=== PATIENT | female | born 1965 | race American Indian/Alaskan Native ===

== ENCOUNTER 2017-03-31 07:23 | Inpatient (IN) | payer MEDICARE ==
[2017-03-31] MEDS ORDERED: NITROSTAT SL PRN (07:48)
--- NOTE | 2017-03-31 07:48 | Emergency Department Report ---
ED General Adult HPI - General Chief complaint: Dyspnea/Respdistress Stated complaint: MARCE Time Seen by Provider: 03/31/17 07:47 Source: patient, EMS, old records reviewed Mode of arrival: Stretcher Limitations: Physical Limitation - History of Present Illness Initial comments: This is a 51-year-old female who is previously unknown to this provider. Patient has a past medical history of congestive heart failure, hypertension, end-stage renal disease, on dialysis Monday, Monday, Monday. She is on home oxygen as well. Presents to the ER with EMS for chest pain and shortness of breath. The chest pain is central in the bilateral anterior chest dennison. It does not radiate. Her shortness of breath is constant. It worsens with physical exertion. It decreases with rest. Patient reports that her dialysis facility is [facility]. She thinks her sex therapist is Dr. Paredes. Patient has no DVT or pulmonary embolus risk factors. She reports her symptoms typically improve with dialysis. -: Gradual, hour(s) Location: chest Radiation: non-radiation Quality: aching Consistency: constant Improves with: rest, other Worsens with: movement Associated Symptoms: chest pain, shortness of breath, weakness - Related Data Home Medications Medication Instructions Recorded Confirmed Last Taken Cinacalcet HCl [Sensipar] 120 mg PO DAILY 03/31/17 03/31/17 03/30/17 Allergies Allergy/AdvReac Type Severity Reaction Status Date / Time No Known Allergies Allergy Unverified 03/31/17 07:27 ED Review of Systems ROS: Stated complaint: MARCE Other details as noted in HPI Comment: Unobtainable due to pts medical conditions Constitutional: malaise Respiratory: shortness of breath Cardiovascular: chest pain Gastrointestinal: denies: vomiting Neurological: weakness Psychiatric: anxiety ED Past Medical Hx - Past Medical History Previous Medical History?: Yes Hx Hypertension: Yes Hx Congestive Heart Failure: Yes Hx Renal Disease: Yes (M,W,F) - Surgical History Past Surgical History?: Yes Additional Surgical History: hysterectomy. bowel obstruction - Social History Smoking Status: Current Every Day Smoker Substance Use Type: None - Medications Home Medications: Home Medications Medication Instructions Recorded Confirmed Last Taken Type Cinacalcet HCl [Sensipar] 120 mg PO DAILY 03/31/17 03/31/17 03/30/17 History ED Physical Exam - General Limitations: Physical Limitation General appearance: alert, in no apparent distress, in distress - Head Head exam: Present: atraumatic, normocephalic - Eye Eye exam: Present: normal appearance, EOMI. Absent: nystagmus - ENT ENT exam: Present: normal exam, normal orophraynx, mucous membranes moist - Neck Neck exam: Present: normal inspection, full ROM - Respiratory Respiratory exam: Present: respiratory distress, rales, rhonchi - Cardiovascular Cardiovascular Exam: Present: normal rhythm, tachycardia, normal heart sounds. Absent: systolic murmur, diastolic murmur, rubs, gallop - GI/Abdominal GI/Abdominal exam: Present: soft, normal bowel sounds. Absent: distended, tenderness, guarding, rebound, rigid, pulsatile mass - Extremities Exam Extremities exam: Present: normal inspection, full ROM, normal capillary refill , other (left upper extremity AV fistula, appropriate throat, no redness, pus or streaking). Absent: pedal edema, joint swelling, calf tenderness - Back Exam Back exam: Present: normal inspection, full ROM. Absent: paraspinal tenderness , vertebral tenderness - Neurological Exam Neurological exam: Present: alert, oriented X3, other (Extraocular movements intact. Tongue midline. No facial droop. Facial sensation intact to light touch in the V1, V2, V3 distribution bilaterally. 5 and 5 strength in 4 extremities.. Sensation is intact to light touch in 4 extremities.). Absent: motor sensory deficit - Psychiatric Psychiatric exam: Present: anxious - Skin Skin exam: Present: warm, dry, intact, normal color. Absent: rash ED Course Vital Signs 03/31/17 03/31/17 03/31/17 07:27 07:34 07:35 Temperature 97.4 F L Pulse Rate 100 H 96 H Respiratory 22 22 30 H Rate Blood Pressure 161/99 Blood Pressure [Right] O2 Sat by Pulse 100 100 Oximetry 03/31/17 03/31/17 03/31/17 07:45 08:01 08:15 Temperature Pulse Rate 100 H 104 H 101 H Respiratory 26 H 34 H 28 H Rate Blood Pressure 155/98 160/99 160/99 Blood Pressure [Right] O2 Sat by Pulse 100 100 94 Oximetry 03/31/17 03/31/17 03/31/17 08:31 08:32 08:45 Temperature Pulse Rate 102 H 105 H 105 H Respiratory 26 H 20 29 H Rate Blood Pressure 160/99 165/99 Blood Pressure 146/90 [Right] O2 Sat by Pulse 98 97 Oximetry 03/31/17 03/31/17 03/31/17 09:01 09:15 09:30 Temperature 97.8 F Pulse Rate 99 H 62 101 H Respiratory 28 H 24 Rate Blood Pressure 146/90 158/86 165/106 Blood Pressure [Right] O2 Sat by Pulse 98 Oximetry 03/31/17 03/31/17 03/31/17 09:45 10:00 10:15 Temperature Pulse Rate 100 H 96 H 102 H Respiratory Rate Blood Pressure 166/101 167/102 170/99 Blood Pressure [Right] O2 Sat by Pulse Oximetry - Reevaluation(s) Reevaluation #1: 03/31/17 08:19 Differential diagnosis, including but not limited to: Congestive heart failure, pulmonary edema, hyperkalemia, pneumonia, multifactorial respiratory failure Assessment and plan: 51-year-old female with chest pain, shortness of breath, crackles, rales, who is going to go on BiPAP therapy and nitroglycerin drip. Nephrology has been paged, currently awaiting callback. Basic metabolic panel is pending. No pulmonary embolus or DVT risk factors, low risk by well's criteria, clinically does not pneumonia, clinically favor congestive heart failure and flash pulmonary edema. Patient required Ativan to cooperate with BiPAP therapy. Case is presented to the Hospital physician, Dr. Sarah Branch; he graciously accept the patient to the medical service. 03/31/17 08:20 Reevaluation #2: 03/31/17 08:21 Aspirin is given by EMS prior to arrival Reevaluation #3: 03/31/17 08:28 As expected, laboratory studies demonstrate hyperkalemia. Case is presented to the sex therapist on-call, Dr. Chua, and he was presented with the patient's laboratory studies, physical exam findings and chest x-ray findings. He recommends that patient does not require any specific medical therapy for hyperkalemia, and indicates she will place orders for emergent dialysis. Reevaluation #4: 03/31/17 08:37 Elevated troponin is appreciated. This is most likely secondary to underlying renal insufficiency. ED Medical Decision Making - Lab Data Result diagrams: 03/31/17 08:01 03/31/17 07:57 Vital Signs 03/31/17 03/31/17 03/31/17 07:27 07:34 07:35 Temperature 97.4 F L Pulse Rate 100 H 96 H Respiratory 22 22 30 H Rate Blood Pressure 161/99 O2 Sat by Pulse 100 100 Oximetry 03/31/17 07:45 Temperature Pulse Rate 100 H Respiratory 26 H Rate Blood Pressure 155/98 O2 Sat by Pulse 100 Oximetry Labs 03/31/17 08:01 WBC 8.2 RBC 3.58 L Hgb 10.6 Hct 33.0 MCV 92 MCH 30 MCHC 32 RDW 15.9 H Plt Count 238 Lymph % (Auto) 14.3 [place] % (Auto) 9.2 H Eos % (Auto) 3.4 Baso % (Auto) 0.6 Lymph # 1.2 [place] # 0.8 Eos # 0.3 Baso # 0.1 Seg Neutrophils % 72.5 H Seg Neutrophils # 6.0 - EKG Data When compared to previous EKG there are: previous EKG unavailable 03/31/17 08:21 Normal sinus, 96 bpm, left axis deviation, left ventricular hypertrophy, T-wave inversions in the lateral leads, nonspecific interventricular conduction delay, abnormal EKG, not morphologically consistent with ST elevation myocardial infarction, left anterior fascicular block, there is no prior EKG for comparison. - Radiology Data Radiology results: image reviewed interpreted by me: X-ray of the chest demonstrates congestive heart failure, cardiomegaly, pulmonary vascular congestion and pulmonary edema, right lower lobe atelectasis versus infiltrate Critical Care Time: Yes Critical care time in (mins) excluding proc time.: 35 Critical care attestation.: If time is entered above; I have spent that time in minutes in the direct care of this critically ill patient, excluding procedure time. ED Disposition Clinical Impression: Pulmonary edema, ESRD (end stage renal disease) Disposition: [id number] OP ADMIT IP TO THIS HOSP Is pt being admited?: Yes Condition: Good
[2017-03-31] MEDS ORDERED: TRIDIL DRIP 50MG/250ML 50 MG/250 ML BOTTLE IV SCH (08:00)
[2017-03-31] MEDS ORDERED: TRIDIL DRIP 50MG/250ML 50 MG/250 ML BOTTLE ONE (08:07)
[2017-03-31 08:11] LABS: Basophils % (Auto) 0.6 % (0.0-1.8); Eosinophils % (Auto) 3.4 % (0.0-4.3); Hemoglobin 10.6 gm/dl (10.1-14.3); Mean Corpuscular HGB Conc 32 % (30-34); Mean Corpuscular Hemoglobin 30 pg (28-32); Mean Corpuscular Volume 92 fl (79-97); Platelet Count 238 K/mm3 (140-440); Red Blood Count 3.58 M/mm3 (3.65-5.03); Red Cell Distribution Width 15.9 % (13.2-15.2); White Blood Count 8.2 K/mm3 (4.5-11.0)
[2017-03-31] MEDS ORDERED: ATIVAN ONE (08:19)
[2017-03-31] MEDS ORDERED: ATIVAN IV ONE (08:22)
[2017-03-31 08:23] LABS: Chloride 93.5 mmol/L (98-107); Potassium 5.9 mmol/L (3.6-5.0)
[2017-03-31] MEDS ORDERED: KIONEX PO ONE (08:30)
--- NOTE | 2017-03-31 08:33 | History and Physical Report ---
History of Present Illness Date of examination: 03/31/17 Date of admission: 03/31/17 Chief complaint: Worsening shortness of breath/dialysis treatment today History of present illness: Very pleasant 51-year-old -[place] female patient with significant past medical history of hypertension and congestive heart failure end-stage renal disease on hemodialysis MWF, presented to the emergency room with worsening shortness of breath and vague chest pain Patient reports that she is due for dialysis today however has been having shortness of breath since last night No nausea vomiting abdominal pain Patient follows with her top frame fitter Dr. Denny Past History Past Medical History: dialysis, ESRD, heart failure, hypertension Past Surgical History: Other (AV fistula) Social history: lives with family, smoking (half to 1 pack per day for many years), full code. denies: alcohol abuse, prescription drug abuse Family history: hypertension Medications and Allergies Allergies Allergy/AdvReac Type Severity Reaction Status Date / Time No Known Allergies Allergy Unverified 03/31/17 07:27 Home Medications Medication Instructions Recorded Confirmed Last Taken Type Cinacalcet HCl [Sensipar] 120 mg PO DAILY 03/31/17 03/31/17 03/30/17 History Active Meds: Active Medications Heparin Sodium (Porcine) (Heparin) 5,000 unit SUB-Q Q12HR ALEX Nitroglycerin/Dextrose (Tridil Drip 50mg/250ml) 50 mg in 250 mls @ 3 mls/hr IV TITR ALEX; 10 MCG/MIN PRN Reason: Protocol Last Titration: 03/31/17 08:23 Dose: 20 mcg/min, 6 mls/hr Nitroglycerin (Nitrostat) 0.4 mg SL .Q5MIN PRN PRN Reason: Chest Pain Sodium Polystyrene Sulfonate (Kionex) 30 gm PO ONCE ONE Stop: 03/31/17 08:31 Review of Systems Constitutional: no weight loss, no weight gain Ears, nose, mouth and throat: no nasal congestion, no nasal discharge Cardiovascular: chest pain, shortness of breath, no orthopnea, no palpitations, no syncope Respiratory: shortness of breath, no cough with sputum Gastrointestinal: no nausea, no vomiting, no diarrhea Genitourinary Female: no dyspareunia, no menorrhagia Musculoskeletal: no myalgias, no arthritis Integumentary: no rash, no lesions Neurological: no paralysis, no weakness Psychiatric: no anxiety, no depression Endocrine: no cold intolerance, no heat intolerance, no polydipsia, no polyuria Hematologic/Lymphatic: no easy bruising, no easy bleeding Allergic/Immunologic: no urticaria, no allergic rhinitis Exam - Constitutional Vitals: Temp Pulse Resp BP Pulse Ox 97.4 F L 100 H 26 H 155/98 100 03/31/17 07:27 03/31/17 07:45 03/31/17 07:45 03/31/17 07:45 03/31/17 07:45 General appearance: Present: mild distress, cachectic - EENT Eyes: Present: PERRL, EOM intact - Neck Neck: Present: supple, normal ROM - Respiratory Respiratory effort: normal Respiratory: bilateral: diminished, rales, negative: rhonchi, wheezing - Cardiovascular Rhythm: regular Heart Sounds: Present: S1 & S2 - Extremities Extremities: no ischemia, No edema - Abdominal General gastrointestinal: Present: soft, non-tender, non-distended, normal bowel sounds - Integumentary Integumentary: Present: clear, warm - Musculoskeletal Musculoskeletal: strength equal bilaterally - Psychiatric Psychiatric: appropriate mood/affect, cooperative - Neurologic Neurologic: CNII-XII intact, moves all extremities Results - Labs CBC & Chem 7: 03/31/17 08:01 03/31/17 07:57 Labs: Abnormal lab results 03/31/17 03/31/17 Range/Units 07:57 08:01 RBC 3.58 L (3.65-5.03) M/mm3 RDW 15.9 H (13.2-15.2) % [place] % (Auto) 9.2 H (0.0-7.3) % Seg Neutrophils % 72.5 H (40.0-70.0) % Sodium 134 L (137-145) mmol/L Potassium 5.9 H (3.6-5.0) mmol/L Chloride 93.5 L (98-107) mmol/L BUN 39 H (7-17) mg/dL Creatinine 5.9 H (0.7-1.2) mg/dL Glucose 106 H (65-100) mg/dL Assessment and Plan --Acute pulmonary edema/secondary to fluid overload/due to missed hemodialysis Nephrology evaluation, stat hemodialysis, supportive care --Acute hypoxic respiratory failure ; due to fluid overload/missed HD Oxygen titrated O2 sats more than 90%, BiPAP as needed --Hyperkalemia; management per nephrology, hemodialysis, Kayexalate as needed --Medical noncompliance; counseling done advised to comply with dialysis, medications, diet and follow-up visits --Hypertension; resume home antihypertensives, when necessary medications --Ongoing tobacco use; smoking cessation counseling done, nicotine patch as needed --DVT prophylaxis; heparin We will closely monitor the patient and adjust management as needed
[2017-03-31] MEDS ORDERED: HABITROL TD ONE (08:43)
[2017-03-31] MEDS ORDERED: NACL 0.9% 100 ML IV PRN ×2 (08:57→09:44)
--- NOTE | 2017-03-31 09:18 | XRay Report ---
Portable chest: SOB. The heart does appear enlarged and they may be vascular congestion. There are bilateral areas of thickened linear and curvilinear opacities in the mid and lower portions of both lungs. There is suspicion of a left pleural effusion with blunting of the costophrenic angle. Surgical coni are present in the left arm most likely related to a vascular shunt. There are some calcific deposits in both shoulder regions. No prior studies for comparison. Impressions: 1. Probable fluid overload with congestive changes. 2. Bilateral areas of atelectasis/scar.
[2017-03-31] MEDS ORDERED: TYLENOL PO STA (10:14)
[2017-03-31] MEDS ORDERED: BENADRYL IV STA (10:17)
[2017-03-31] MEDS ORDERED: NACL 0.9 (PRIMING MACHINE ONLY DIALYSIS) MC ONE (10:24)
--- NOTE | 2017-03-31 10:51 | Consultation ---
History of Present Illness - Reason for Consult Consult date: 03/31/17 end stage renal disease, hyperkalemia - History of Present Illness this a 51 y.o F with h/o ESRD on HD every MWF, last treatment was on 03/29, she came to the ED for worsening SOB and chest pain, CXR was done and showed pulmonary congestion, labs showed hyperkalemia and neprhology consult was requested for urgent HD. she was seen during dialysis and her sx started to imporve. she has been on HD for the last 6 years and according to her she is compliant with her tx. 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 denies: alcohol abuse, prescription drug abuse Family history: hypertension Medications and Allergies Allergies Allergy/AdvReac Type Severity Reaction Status Date / Time No Known Allergies Allergy Unverified 03/31/17 07:27 Home Medications Medication Instructions Recorded Confirmed Last Taken Type Cinacalcet HCl [Sensipar] 120 mg PO DAILY 03/31/17 03/31/17 03/30/17 History Active Meds: Active Medications Cinacalcet (Sensipar) 120 mg PO QDAY ALEX Famotidine (Pepcid) 20 mg PO BID ALEX Heparin Sodium (Porcine) (Heparin) 5,000 unit SUB-Q Q12HR ALEX Hydralazine HCl (Apresoline) 10 mg IV Q4HR PRN PRN Reason: Hypertension Nitroglycerin/Dextrose (Tridil Drip 50mg/250ml) 50 mg in 250 mls @ 3 mls/hr IV TITR ALEX; 10 MCG/MIN PRN Reason: Protocol Last Titration: 03/31/17 09:06 Dose: 0 mcg/min, 0 mls/hr Sodium Chloride (Nacl 0.9%) 100 mls @ 999 mls/hr IV PAULA PRN PRN Reason: Hypotension Sodium Chloride (Nacl 0.9%) 100 mls @ 999 mls/hr IV PAULA PRN PRN Reason: Hypotension Nitroglycerin (Nitrostat) 0.4 mg SL .Q5MIN PRN PRN Reason: Chest Pain Review of Systems All systems: negative (SOD, chest pain.) Exam - Vital Signs Vital signs: Vital Signs Temp Pulse Resp BP Pulse Ox 97.4 F L 100 H 22 161/99 100 03/31/17 07:27 03/31/17 07:27 03/31/17 07:27 03/31/17 07:27 03/31/17 07:27 - General Appearance General appearance: well-developed, well-nourished EENT: ATNC, PERRL, mucous membranes moist Neck: Present: neck supple Respiratory: Rales, Ronchi, Decreased Breath Sounds Heart: regular, S1S2 Gastrointestinal: Present: normoactive bowel sounds. Absent: tenderness, distended, guarding Integumentary: no rash, warm and dry Neurologic: no focal deficit, no asterixis, alert and oriented x3 Musculoskeletal: Present: other (1+ pitting edema in BLE) Psychiatric: mood/affect appropriate, cooperative Results - Lab Results 03/31/17 08:01 03/31/17 07:57 Most recent lab results Calcium 9.0 mg/dL (8.4-10.2) 03/31/17 07:57 Assessment and Plan ESRD on HD -current access L AVF with +thrill and bruit -HD today for clearance and volume removal, will order HD again tomorrow -will assess dialysis needs daily -strict I&O -daily weights -renally dose meds -renal diet Hypoxic respiratory failure -due to pulmonary congestiopn, HD with UF, goal 3-4 L as tolerated -HD again tomorrow Hyperkalemia -HD as above Anemia in CKD -THOMAS as needed with HD HTN -UF with HD-will adjust BP meds as needed Secondary hyperparathyroidism -cont cinaclcet -will check phos in AM
[2017-03-31] MEDS: HEPARIN SUB-Q SCH ×2 (15:00→22:12)
[2017-03-31] MEDS ORDERED: BENADRYL IV ONE (15:15)
[2017-03-31] MEDS ORDERED: HYDROCORTISONE CR TP PRN (15:17)
[2017-03-31] MEDS: PERCOCET 5/325 PO PRN ×2 (15:49→23:25)
[2017-03-31] MEDS: SENSIPAR PO SCH (15:55)
[2017-03-31] MEDS: PEPCID PO SCH ×2 (15:55→22:12)
[2017-03-31] MEDS: KENALOG TP SCH (22:14)
[2017-04-01 05:43] LABS: Basophils % (Auto) 0.6 % (0.0-1.8); Eosinophils % (Auto) 3.9 % (0.0-4.3); Hematocrit 32.1 % (30.3-42.9); Hemoglobin 10.3 gm/dl (10.1-14.3); Mean Corpuscular HGB Conc 32 % (30-34); Mean Corpuscular Hemoglobin 30 pg (28-32); Mean Corpuscular Volume 92 fl (79-97); Platelet Count 229 K/mm3 (140-440); Red Blood Count 3.49 M/mm3 (3.65-5.03); White Blood Count 7.4 K/mm3 (4.5-11.0)
[2017-04-01 05:55] LABS: Chloride 97.7 mmol/L (98-107); Phosphorous 3.3 mg/dL (2.5-4.5); Potassium 4.2 mmol/L (3.6-5.0)
[2017-04-01] MEDS: PERCOCET 5/325 PO PRN ×2 (08:48→21:29)
[2017-04-01] MEDS: APRESOLINE IV PRN ×2 (08:49→18:40)
[2017-04-01] MEDS: BENADRYL PO PRN ×3 (09:13→21:29)
[2017-04-01] MEDS: SENSIPAR PO SCH (09:14)
[2017-04-01] MEDS: PEPCID PO SCH ×2 (09:19→21:29)
[2017-04-01] MEDS: KENALOG TP SCH ×2 (09:22→21:30)
[2017-04-01] MEDS: HEPARIN SUB-Q SCH ×2 (09:43→21:29)
--- NOTE | 2017-04-01 10:52 | Progress Note ---
Assessment and Plan - Patient Problems (1) ESRD (end stage renal disease) Current Visit: Yes Status: Acute Plan to address problem: Hemodialysis again today for UF and clearance Assess dialysis needs daily Strict I&O's Obtain daily weights Renally dose meds Renal diet (2) Volume overload Current Visit: Yes Status: Acute Plan to address problem: Hemodialysis again today for volume removal Fluid restriction of 1 liter per day (3) Hypertension Current Visit: Yes Status: Acute Plan to address problem: Resume anti-hypertensive agents Hemodialysis today (4) Anemia in CKD (chronic kidney disease) Current Visit: Yes Status: Acute Plan to address problem: H/H stable. Epogen prn with HD Subjective Date of service: 04/01/17 Principal diagnosis: ARF Interval history: Patient seen lying in bed. No family at bedside. Objective - Vital Signs Vital signs: Vital Signs - 12hr 03/31/17 03/31/17 04/01/17 23:12 23:25 07:33 Temperature 98.2 F 98.0 F Pulse Rate 96 H 102 H Respiratory 20 17 18 Rate Blood Pressure 149/89 171/102 O2 Sat by Pulse 99 98 Oximetry 04/01/17 08:49 Temperature Pulse Rate Respiratory Rate Blood Pressure 170/102 O2 Sat by Pulse Oximetry - General Appearance General appearance: well-developed, appears stated age, fatigue EENT: ATNC, PERRL, hearing intact, vision intact Neck: no JVD, supple Respiratory: Present: Decreased Breath Sounds Cardiology: tachycardia, S1S2 Gastrointestinal: normoactive bowel sounds Integumentary: warm and dry Neurologic: alert and oriented x3, other Musculoskeletal: other (No edema. Has Left AVG with positive bruit and thrill.) - Lab 04/01/17 05:28 04/01/17 05:28 Most recent lab results Calcium 9.0 mg/dL (8.4-10.2) 04/01/17 05:28 Phosphorus 3.30 mg/dL (2.5-4.5) 04/01/17 05:28
--- NOTE | 2017-04-01 14:45 | Progress Note ---
Assessment and Plan Very pleasant 51-year-old -[place] female patient with significant past medical history of hypertension and congestive heart failure end-stage renal disease on hemodialysis MWF, presented to the emergency room with worsening shortness of breath and vague chest pain. No nausea vomiting abdominal pain. CXR showed puld congestion. -Acute pulmonary edema/secondary to fluid overload: Improving with HD Nephrology evaluation, stat hemodialysis, supportive care -Acute hypoxic respiratory failure: Due to fluid overload/missed HD Oxygen titrated O2 sats more than 90%, BiPAP as needed -Hyperkalemia: Corrected with hemodialysis and Kayexalate - ESRD On HD on MWF - Elevated Jena and proBNP secodnary to ESRD -Medical noncompliance; counseling done advised to comply with dialysis, medications, diet and follow-up visits -Hypertension; resume home antihypertensives, when necessary medications -Ongoing tobacco use; smoking cessation counseling done, nicotine patch as needed -DVT prophylaxis; heparin Subjective Date of service: 04/01/17 Principal diagnosis: shortness of brreath from Pulm edema. ESRD on HD Interval history: Still having shortness of breath though less Objective - Constitutional Vitals: Vital Signs - 12hr 04/01/17 04/01/17 04/01/17 07:33 08:49 13:50 Temperature 98.0 F Pulse Rate 102 H Respiratory 18 Rate Blood Pressure 171/102 170/102 O2 Sat by Pulse 98 98 Oximetry 04/01/17 14:21 Temperature 98.3 F Pulse Rate 98 H Respiratory Rate Blood Pressure 165/98 O2 Sat by Pulse 99 Oximetry General appearance: Present: no acute distress, well-nourished - EENT Eyes: PERRL, EOM intact - Neck Neck: supple, normal ROM - Respiratory Respiratory effort: normal Respiratory: bilateral: diminished - Cardiovascular Rhythm: regular Heart Sounds: Present: S1 & S2. Absent: gallop, rub Extremities: pulses intact, normal color, Full ROM - Gastrointestinal General gastrointestinal: Present: soft, non-tender, non-distended, normal bowel sounds - Integumentary Integumentary: clear, warm, dry - Musculoskeletal Musculoskeletal: strength equal bilaterally, right sided weakness - Neurologic Neurologic: moves all extremities - Psychiatric Psychiatric: memory intact, appropriate mood/affect, intact judgment & insight - Labs CBC & Chem 7: 04/01/17 05:28 04/01/17 05:28 Labs: Abnormal lab results 04/01/17 04/01/17 Range/Units 05:28 05:28 RBC 3.49 L (3.65-5.03) M/mm3 RDW 16.0 H (13.2-15.2) % [place] % (Auto) 10.6 H (0.0-7.3) % Chloride 97.7 L (98-107) mmol/L BUN 23 H (7-17) mg/dL Creatinine 4.5 H (0.7-1.2) mg/dL Glucose 113 H (65-100) mg/dL
[2017-04-01] MEDS ORDERED: NACL 0.9 (PRIMING MACHINE ONLY DIALYSIS) MC ONE ×2 (15:15→17:05)
[2017-04-02 05:43] LABS: Basophils % (Auto) 0.4 % (0.0-1.8); Eosinophils % (Auto) 3.9 % (0.0-4.3); Hematocrit 36.3 % (30.3-42.9); Hemoglobin 11.3 gm/dl (10.1-14.3); Mean Corpuscular HGB Conc 31 % (30-34); Mean Corpuscular Hemoglobin 28 pg (28-32); Mean Corpuscular Volume 90 fl (79-97); Platelet Count 284 K/mm3 (140-440); Red Blood Count 4.03 M/mm3 (3.65-5.03); Red Cell Distribution Width 16.1 % (13.2-15.2)
[2017-04-02 06:02] LABS: Calcium 9.7 mg/dL (8.4-10.2); Chloride 94.5 mmol/L (98-107); Phosphorous 4.6 mg/dL (2.5-4.5); Potassium 4.4 mmol/L (3.6-5.0)
[2017-04-02] MEDS: HEPARIN SUB-Q SCH ×2 (09:50→22:05)
[2017-04-02] MEDS: PEPCID PO SCH ×2 (09:51→22:06)
[2017-04-02] MEDS: SENSIPAR PO SCH (09:51)
[2017-04-02] MEDS: KENALOG TP SCH ×2 (09:51→22:06)
[2017-04-02] MEDS: BENADRYL PO PRN ×2 (09:58→22:12)
[2017-04-02] MEDS: PERCOCET 5/325 PO PRN ×2 (09:59→22:10)
--- NOTE | 2017-04-02 11:38 | Consultation ---
History of Present Illness Consult date: 04/02/17 Consult reason: congestive heart failure, shortness of breath History of present illness: The patient is a 51-year-old woman with end-stage renal disease on hemodialysis. She presented to the hospital with one week progressive shortness of breath and cough and edema, chest x-ray on presentation shows cardiomegaly and pulmonary edema. She denied any missed dialysis sessions. She reports a history of "congestive heart failure", but is unable to provide details of any specific cardiac workup. 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 She reports to me that she has chronic shortness of breath which appears to peak intensity just before her next dialysis. There is no chest pain, no palpitations and no syncope. Currently, she is on the medical floor feels better after in-hospital dialysis. EKG on this presentation is sinus rhythm, left ventricular hypertrophy and nonspecific ST and T wave abnormalities. As reported, the chest x-ray reveals moderate to severe cardiomegaly, with bilateral pulmonary edema. Past History Past Medical History: dialysis, ESRD, heart failure, hypertension Past Surgical History: Other (AV fistula) Social history: lives with family, smoking (half to 1 pack per day for many years), full code. denies: alcohol abuse, prescription drug abuse Family history: hypertension Medications and Allergies Allergies Allergy/AdvReac Type Severity Reaction Status Date / Time No Known Allergies Allergy Unverified 03/31/17 07:27 Home Medications Medication Instructions Recorded Confirmed Last Taken Type Cinacalcet HCl [Sensipar] 120 mg PO DAILY 03/31/17 03/31/17 03/30/17 History Active Meds: Active Medications Cinacalcet (Sensipar) 120 mg PO QDAY PENDING SALE TO [facility] Last Admin: 04/02/17 09:51 Dose: 120 mg Diphenhydramine HCl (Benadryl) 25 mg PO Q6H PRN PRN Reason: Itching Last Admin: 04/02/17 09:58 Dose: 25 mg Famotidine (Pepcid) 20 mg PO BID PENDING SALE TO [facility] Last Admin: 04/02/17 09:51 Dose: 20 mg Heparin Sodium (Porcine) (Heparin) 5,000 unit SUB-Q Q12HR PENDING SALE TO [facility] Last Admin: 04/02/17 09:50 Dose: Not Given Hydralazine HCl (Apresoline) 10 mg IV Q4HR PRN PRN Reason: Hypertension Last Admin: 04/01/17 18:40 Dose: 10 mg Nitroglycerin/Dextrose (Tridil Drip 50mg/250ml) 50 mg in 250 mls @ 3 mls/hr IV TITR ALEX; 10 MCG/MIN PRN Reason: Protocol Last Titration: 03/31/17 09:06 Dose: 0 mcg/min, 0 mls/hr Sodium Chloride (Nacl 0.9%) 100 mls @ 999 mls/hr IV PAULA PRN PRN Reason: Hypotension Sodium Chloride (Nacl 0.9%) 100 mls @ 999 mls/hr IV PAULA PRN PRN Reason: Hypotension Nitroglycerin (Nitrostat) 0.4 mg SL .Q5MIN PRN PRN Reason: Chest Pain Oxycodone/Acetaminophen (Percocet 5/325) 1 tab PO Q6H PRN PRN Reason: Pain, Moderate (4-6) Last Admin: 04/02/17 09:59 Dose: 1 tab Triamcinolone Acetonide (Kenalog) 1 applic TP BID ALEX Last Admin: 04/02/17 09:51 Dose: 1 applic Review of Systems Cardiovascular: orthopnea, edema, shortness of breath, dyspnea on exertion, no chest pain, no palpitations, no rapid/irregular heart beat, no syncope, no lightheadedness Physical Examination Vital Signs Temp Pulse Resp BP Pulse Ox 97.4 F L 100 H 22 161/99 100 03/31/17 07:27 03/31/17 07:27 03/31/17 07:27 03/31/17 07:27 03/31/17 07:27 General appearance: no acute distress HEENT: Positive: PERRL Neck: Positive: neck supple, trachea midline Cardiac: Positive: Reg Rate and Rhythm Lungs: Positive: Decreased Breath Sounds Neuro: Positive: Grossly Intact Abdomen: Positive: Soft Female genitourinary: deferred Skin: Positive: Clear Extremities: Absent: edema Results 04/02/17 04:36 04/02/17 04:36 CBC 04/02/17 Range/Units 04:36 WBC 9.0 (4.5-11.0) K/mm3 RBC 4.03 (3.65-5.03) M/mm3 Hgb 11.3 (10.1-14.3) gm/dl Hct 36.3 (30.3-42.9) % Plt Count 284 (140-440) K/mm3 Lymph # 1.5 (1.2-5.4) K/mm3 [place] # 1.0 H (0.0-0.8) K/mm3 Eos # 0.3 (0.0-0.4) K/mm3 Baso # 0.0 (0.0-0.1) K/mm3 Comprehensive Metabolic Panel 04/02/17 Range/Units 04:36 Sodium 138 (137-145) mmol/L Potassium 4.4 (3.6-5.0) mmol/L Chloride 94.5 L (98-107) mmol/L Carbon Dioxide 28 (22-30) mmol/L BUN 25 H (7-17) mg/dL Creatinine 4.1 H (0.7-1.2) mg/dL Glucose 81 (65-100) mg/dL Calcium 9.7 (8.4-10.2) mg/dL EKG interpretations - Telemetry EKG Rhythm: Sinus Rhythm Assessment and Plan - Patient Problems (1) Pulmonary edema Current Visit: Yes Status: Acute Plan to address problem: Patient with end-stage renal disease on hemodialysis, presents with acute pulmonary edema. Continue aggressive hemodialysis for fluid management. We will get an echocardiogram for left ventricular function assessment. Patient likely has an underlying dilated cardiomyopathy based on massive cardiomegaly on chest x-ray. We will start afterload agents, optimal blood pressure management, beta blockers and oral antiplatelet therapy. A predischarge myocardial perfusion study for ischemia assessment.
--- NOTE | 2017-04-02 15:17 | Progress Note ---
Assessment and Plan Assessment and plan: --Non specific elevated CE; sec to ESRD ,however ,multiple risk factors, cardiology evaluated the patient --Acute pulmonary edema/secondary to fluid overload/due to missed hemodialysis Nephrology evaluation, stat hemodialysis, supportive care --Acute hypoxic respiratory failure ; due to fluid overload/missed HD Oxygen titrated O2 sats more than 90%, BiPAP as needed --Hyperkalemia; management per nephrology, hemodialysis, Kayexalate as needed --Medical noncompliance; counseling done advised to comply with dialysis, medications, diet and follow-up visits --Hypertension; resume home antihypertensives, when necessary medications --Ongoing tobacco use; smoking cessation counseling done, nicotine patch as needed --DVT prophylaxis; heparin Continue current management Plan of care discussed with the patient and her nurse History Interval history: Patient seen and examined, medical records reviewed Feels slightly better after hemodialysis, denies chest pain or shortness of breath Vital signs reviewed Hospitalist Physical - Constitutional Vitals: Temp Pulse Resp BP Pulse Ox 97.9 F 101 H 20 156/92 97 04/02/17 08:48 04/02/17 08:48 04/02/17 08:48 04/02/17 08:48 04/02/17 09:36 General appearance: Present: no acute distress, well-nourished - EENT Eyes: Present: PERRL, EOM intact - Neck Neck: Present: supple, normal ROM - Respiratory Respiratory effort: normal Respiratory: bilateral: diminished, rales, negative: rhonchi, wheezing - Cardiovascular Rhythm: regular Heart Sounds: Present: S1 & S2 - Extremities Extremities: no ischemia, No edema Peripheral Pulses: within normal limits - Abdominal General gastrointestinal: soft, non-tender, non-distended, normal bowel sounds - Integumentary Integumentary: Present: clear, warm - Psychiatric Psychiatric: appropriate mood/affect, cooperative - Neurologic Neurologic: CNII-XII intact, moves all extremities Results - Labs CBC & Chem 7: 04/02/17 04:36 04/02/17 04:36 Labs: Laboratory Last Values WBC 9.0 K/mm3 (4.5-11.0) 04/02/17 04:36 RBC 4.03 M/mm3 (3.65-5.03) 04/02/17 04:36 Hgb 11.3 gm/dl (10.1-14.3) 04/02/17 04:36 Hct 36.3 % (30.3-42.9) 04/02/17 04:36 MCV 90 fl (79-97) 04/02/17 04:36 MCH 28 pg (28-32) 04/02/17 04:36 MCHC 31 % (30-34) 04/02/17 04:36 RDW 16.1 % (13.2-15.2) H 04/02/17 04:36 Plt Count 284 K/mm3 (140-440) 04/02/17 04:36 Lymph % (Auto) 16.5 % (13.4-35.0) 04/02/17 04:36 [place] % (Auto) 11.4 % (0.0-7.3) H 04/02/17 04:36 Eos % (Auto) 3.9 % (0.0-4.3) 04/02/17 04:36 Baso % (Auto) 0.4 % (0.0-1.8) 04/02/17 04:36 Lymph # 1.5 K/mm3 (1.2-5.4) 04/02/17 04:36 [place] # 1.0 K/mm3 (0.0-0.8) H 04/02/17 04:36 Eos # 0.3 K/mm3 (0.0-0.4) 04/02/17 04:36 Baso # 0.0 K/mm3 (0.0-0.1) 04/02/17 04:36 Seg Neutrophils % 67.8 % (40.0-70.0) 04/02/17 04:36 Seg Neutrophils # 6.1 K/mm3 (1.8-7.7) 04/02/17 04:36 PT 13.7 Sec. (12.2-14.9) 03/31/17 08:03 INR 1.00 (0.87-1.13) 03/31/17 08:03 Sodium 138 mmol/L (137-145) 04/02/17 04:36 Potassium 4.4 mmol/L (3.6-5.0) 04/02/17 04:36 Chloride 94.5 mmol/L (98-107) L 04/02/17 04:36 Carbon Dioxide 28 mmol/L (22-30) 04/02/17 04:36 Anion Gap 20 mmol/L 04/02/17 04:36 BUN 25 mg/dL (7-17) H 04/02/17 04:36 Creatinine 4.1 mg/dL (0.7-1.2) H 04/02/17 04:36 Estimated GFR 14 ml/min 04/02/17 04:36 BUN/Creatinine Ratio 6 % 04/02/17 04:36 Glucose 81 mg/dL (65-100) 04/02/17 04:36 Calcium 9.7 mg/dL (8.4-10.2) 04/02/17 04:36 Phosphorus 4.60 mg/dL (2.5-4.5) H D 04/02/17 04:36 Troponin T 0.105 ng/mL (0.00-0.029) H* 04/02/17 13:23 NT-Pro-B Natriuret Pep [id number] pg/mL (0-900) H 03/31/17 08:03 Triglycerides 109 mg/dL (2-149) 03/31/17 07:57 Cholesterol 159 mg/dL (50-199) 03/31/17 07:57 LDL Cholesterol Direct 83 mg/dL (50-130) 03/31/17 07:57 HDL Cholesterol 55 mg/dL (40-59) 03/31/17 07:57 Cholesterol/HDL Ratio 2.89 % 03/31/17 07:57 Hepatitis A IgM Ab Non-reactive (NonReactive) 03/31/17 09:55 Hep Bs Antigen Non-reactive (Negative) 03/31/17 09:55 Hep B Core IgM Ab Non-reactive (NonReactive) 03/31/17 09:55 Hepatitis C Antibody Non-reactive (NonReactive) 03/31/17 09:55
--- NOTE | 2017-04-02 15:27 | Progress Note ---
Assessment and Plan - Patient Problems (1) ESRD (end stage renal disease) Current Visit: Yes Status: Acute Plan to address problem: Received hemodialysis yesterday. Next hemodialysis session will be tomorrow. No acute indication for HD today Assess dialysis needs daily Strict I&O's Obtain daily weights Renally dose meds Renal diet (2) Volume overload Current Visit: Yes Status: Acute Plan to address problem: Fluid restriction of 1 liter per day. Continue on hemodialysis regimen. (3) Hypertension Current Visit: Yes Status: Acute Plan to address problem: Continue on anti-hypertensive agents and adjust as needed (4) Anemia in CKD (chronic kidney disease) Current Visit: Yes Status: Acute Plan to address problem: H/H stable. Epogen prn with HD Subjective Date of service: 04/02/17 Principal diagnosis: shortness of brreath from Pulm edema. ESRD on HD Interval history: Patient went off floor to smoke and went without notifying nurse and without oxygen. Security returned patient to floor just now. Patient states have shortness of breath now, oxygen applied. Patient instructed not to leave medical floor. Objective - Vital Signs Vital signs: Vital Signs - 12hr 04/02/17 04/02/17 08:48 09:36 Temperature 97.9 F Pulse Rate 101 H Respiratory 20 Rate Blood Pressure 156/92 O2 Sat by Pulse 96 97 Oximetry - General Appearance General appearance: well-developed, appears stated age, fatigue EENT: ATNC, PERRL, hearing intact, vision intact Neck: no JVD, supple Respiratory: Present: Decreased Breath Sounds Cardiology: regular, S1S2 Gastrointestinal: normoactive bowel sounds Integumentary: warm and dry Neurologic: alert and oriented x3 Musculoskeletal: other (Left AVG has positive bruit and thrill) Psychiatric: mood/affect appropriate - Lab 04/02/17 04:36 04/02/17 04:36 Most recent lab results Calcium 9.7 mg/dL (8.4-10.2) 04/02/17 04:36 Phosphorus 4.60 mg/dL (2.5-4.5) H D 04/02/17 04:36
[2017-04-03 05:13] LABS: Basophils % (Auto) 0.5 % (0.0-1.8); Eosinophils % (Auto) 3.9 % (0.0-4.3); Hematocrit 33.5 % (30.3-42.9); Hemoglobin 10.5 gm/dl (10.1-14.3); Mean Corpuscular HGB Conc 32 % (30-34); Mean Corpuscular Hemoglobin 29 pg (28-32); Mean Corpuscular Volume 91 fl (79-97); Platelet Count 240 K/mm3 (140-440); Red Blood Count 3.69 M/mm3 (3.65-5.03); Red Cell Distribution Width 16.3 % (13.2-15.2); White Blood Count 8.5 K/mm3 (4.5-11.0)
[2017-04-03 05:40] LABS: Calcium 9.1 mg/dL (8.4-10.2); Chloride 91.6 mmol/L (98-107); Phosphorous 5.1 mg/dL (2.5-4.5); Potassium 5.2 mmol/L (3.6-5.0)
[2017-04-03] MEDS: APRESOLINE PO SCH ×3 (09:00→22:15)
[2017-04-03] MEDS: BENADRYL PO PRN ×2 (10:21→22:27)
[2017-04-03] MEDS: PERCOCET 5/325 PO PRN ×2 (10:22→22:27)
--- NOTE | 2017-04-03 10:25 | Progress Note ---
Assessment and Plan Acute Pulmonary edema ESRD on dialysis Dilated Cardiomyopathy EF 15-20% on echocardiogram Elevated troponin likely in the setting renal disease Hypertension Hemodialysis for fluid management. Continue afterload agents, beta blockers and oral antiplatelet therapy for her dilated CMP. Pre-discharge myocardial perfusion study for ischemia assessment. Subjective Date of service: 04/03/17 Principal diagnosis: shortness of brreath from Pulm edema. ESRD on HD Interval history: Patient reports she is feeling better. She denies chest pain and shortness of breath. Objective Vital Signs Temp Pulse Resp BP Pulse Ox 04/03/17 07:55 97.7 F 96 H 20 156/98 96 04/03/17 00:19 98.5 F 99 H 20 152/94 96 04/02/17 16:15 98.6 F 98 H 18 155/93 93 - Physical Examination General: No Apparent Distress HEENT: Positive: PERRL Cardiac: Positive: Reg Rate and Rhythm Lungs: Positive: Decreased Breath Sounds Neuro: Positive: Grossly Intact - Labs and Meds CBC 04/03/17 Range/Units 04:38 WBC 8.5 (4.5-11.0) K/mm3 RBC 3.69 (3.65-5.03) M/mm3 Hgb 10.5 (10.1-14.3) gm/dl Hct 33.5 (30.3-42.9) % Plt Count 240 (140-440) K/mm3 Lymph # 1.6 (1.2-5.4) K/mm3 [place] # 1.0 H (0.0-0.8) K/mm3 Eos # 0.3 (0.0-0.4) K/mm3 Baso # 0.0 (0.0-0.1) K/mm3 Comprehensive Metabolic Panel 04/03/17 Range/Units 04:38 Sodium 135 L (137-145) mmol/L Potassium 5.2 H (3.6-5.0) mmol/L Chloride 91.6 L (98-107) mmol/L Carbon Dioxide 24 (22-30) mmol/L BUN 46 H (7-17) mg/dL Creatinine 6.1 H (0.7-1.2) mg/dL Glucose 80 (65-100) mg/dL Calcium 9.1 (8.4-10.2) mg/dL
[2017-04-03] MEDS ORDERED: ALBURX 25% (ALBUMIN) IV PRN (12:10)
--- NOTE | 2017-04-03 12:10 | Progress Note ---
Assessment and Plan (1) ESRD (end stage renal disease) Current Visit: Yes Status: Acute Plan to address problem: HD today. Pt gets MWF HD oupatient, will eval for HD daily. CXR was congested earlier, will check CXR in morning and decide if to dialyze again based on volume status. Assess dialysis needs daily Strict I&O's Obtain daily weights Renally dose meds Renal diet (2) Volume overload Current Visit: Yes Status: Acute Plan to address problem: Fluid restriction of 1 liter per day. UF with HD today. CXR was congested earlier, will check CXR in morning and decide if to dialyze again based on volume status. (3) Hypertension Current Visit: Yes Status: Acute Plan to address problem: Continue on anti-hypertensive agents and adjust as needed (4) Anemia in CKD (chronic kidney disease) Current Visit: Yes Status: Acute Plan to address problem: H/H stable. Epogen prn with HD Plan d/w HD RN. Subjective Date of service: 04/03/17 Principal diagnosis: shortness of brreath from Pulm edema. ESRD on HD Interval history: Seen on HD. Says SHOB better. Objective - Exam Narrative Exam: General appearance: AAOX3 EENT: ATNC, PERRL, hearing intact, vision intact Neck: no JVD, supple Respiratory: Present: Coarse BS BL Cardiology: regular, S1S2 Gastrointestinal: normoactive bowel sounds Integumentary: warm and dry Neurologic: alert and oriented x3 Musculoskeletal: other (Left AVG has positive bruit and thrill) Psychiatric: mood/affect appropriate - Vital Signs Vital signs: Vital Signs - 12hr 04/03/17 04/03/17 04/03/17 00:19 07:55 10:22 Temperature 98.5 F 97.7 F Pulse Rate 99 H 96 H Respiratory 20 20 18 Rate Blood Pressure 152/94 156/98 O2 Sat by Pulse 96 96 Oximetry 04/03/17 04/03/17 04/03/17 10:35 10:45 11:00 Temperature 97.6 F Pulse Rate 94 H 66 66 Respiratory 18 Rate Blood Pressure 175/95 168/73 169/73 O2 Sat by Pulse Oximetry 04/03/17 04/03/17 11:15 11:30 Temperature Pulse Rate 89 97 H Respiratory Rate Blood Pressure 171/93 154/103 O2 Sat by Pulse Oximetry - Lab 04/03/17 04:38 04/03/17 04:38 Most recent lab results Calcium 9.1 mg/dL (8.4-10.2) 04/03/17 04:38 Phosphorus 5.10 mg/dL (2.5-4.5) H 04/03/17 04:38
[2017-04-03] MEDS ORDERED: NACL 0.9 (PRIMING MACHINE ONLY DIALYSIS) MC ONE (13:14)
[2017-04-03] MEDS: COREG PO SCH ×2 (15:57→22:15)
[2017-04-03] MEDS: HEPARIN SUB-Q SCH ×2 (15:59→22:18)
[2017-04-03] MEDS: KENALOG TP SCH ×2 (15:59→22:21)
[2017-04-03] MEDS: PEPCID PO SCH ×2 (16:02→22:15)
[2017-04-03] MEDS: SENSIPAR PO SCH (16:02)
--- NOTE | 2017-04-03 17:15 | Progress Note ---
Assessment and Plan Assessment and plan: --Non specific elevated CE; sec to ESRD ,however ,multiple risk factors, cardiology evaluated the patient Stress Test tomorrow to rule out reversible ischemia --Acute pulmonary edema/secondary to fluid overload/resolved after hemodialysis Hemodialysis per schedule --Acute hypoxic respiratory failure ; due to fluid overload/missed HD, improved Oxygen , BiPAP as needed --Hyperkalemia; management per nephrology, --Medical noncompliance; counseling done advised to comply with dialysis, medications, diet and follow-up visits --Hypertension; controlled , continue antihypertensives, when necessary medications --Ongoing tobacco use; smoking cessation counseling done, nicotine patch as needed --DVT prophylaxis; heparin Follow stress test, if negative and patient is stable will discharge her home tomorrow History Interval history: Patient seen and examined, medical records reviewed No events reported by the nursing staff Cardiology scheduled for stress test tomorrow Denies chest pain or shortness of breath Hospitalist Physical - Constitutional Vitals: Temp Pulse Resp BP Pulse Ox 98.4 F 66 18 154/80 96 04/03/17 13:45 04/03/17 13:45 04/03/17 13:45 04/03/17 15:57 04/03/17 07:55 General appearance: Present: no acute distress, well-nourished - EENT Eyes: Present: PERRL, EOM intact - Neck Neck: Present: supple, normal ROM - Respiratory Respiratory effort: normal Respiratory: bilateral: diminished, negative: rales, rhonchi, wheezing - Cardiovascular Rhythm: regular Heart Sounds: Present: S1 & S2 - Extremities Extremities: no ischemia, No edema - Abdominal General gastrointestinal: soft, non-tender, non-distended, normal bowel sounds - Integumentary Integumentary: Present: clear, warm - Psychiatric Psychiatric: appropriate mood/affect, cooperative - Neurologic Neurologic: CNII-XII intact, moves all extremities Results - Labs CBC & Chem 7: 04/03/17 04:38 04/03/17 04:38 Labs: Laboratory Last Values WBC 8.5 K/mm3 (4.5-11.0) 04/03/17 04:38 RBC 3.69 M/mm3 (3.65-5.03) 04/03/17 04:38 Hgb 10.5 gm/dl (10.1-14.3) 04/03/17 04:38 Hct 33.5 % (30.3-42.9) 04/03/17 04:38 MCV 91 fl (79-97) 04/03/17 04:38 MCH 29 pg (28-32) 04/03/17 04:38 MCHC 32 % (30-34) 04/03/17 04:38 RDW 16.3 % (13.2-15.2) H 04/03/17 04:38 Plt Count 240 K/mm3 (140-440) 04/03/17 04:38 Lymph % (Auto) 18.6 % (13.4-35.0) 04/03/17 04:38 [place] % (Auto) 11.8 % (0.0-7.3) H 04/03/17 04:38 Eos % (Auto) 3.9 % (0.0-4.3) 04/03/17 04:38 Baso % (Auto) 0.5 % (0.0-1.8) 04/03/17 04:38 Lymph # 1.6 K/mm3 (1.2-5.4) 04/03/17 04:38 [place] # 1.0 K/mm3 (0.0-0.8) H 04/03/17 04:38 Eos # 0.3 K/mm3 (0.0-0.4) 04/03/17 04:38 Baso # 0.0 K/mm3 (0.0-0.1) 04/03/17 04:38 Seg Neutrophils % 65.2 % (40.0-70.0) 04/03/17 04:38 Seg Neutrophils # 5.5 K/mm3 (1.8-7.7) 04/03/17 04:38 PT 13.7 Sec. (12.2-14.9) 03/31/17 08:03 INR 1.00 (0.87-1.13) 03/31/17 08:03 Sodium 135 mmol/L (137-145) L 04/03/17 04:38 Potassium 5.2 mmol/L (3.6-5.0) H 04/03/17 04:38 Chloride 91.6 mmol/L (98-107) L 04/03/17 04:38 Carbon Dioxide 24 mmol/L (22-30) 04/03/17 04:38 Anion Gap 25 mmol/L 04/03/17 04:38 BUN 46 mg/dL (7-17) H 04/03/17 04:38 Creatinine 6.1 mg/dL (0.7-1.2) H 04/03/17 04:38 Estimated GFR 9 ml/min 04/03/17 04:38 BUN/Creatinine Ratio 8 % 04/03/17 04:38 Glucose 80 mg/dL (65-100) 04/03/17 04:38 POC Glucose 79 (70-105) 04/02/17 16:23 Calcium 9.1 mg/dL (8.4-10.2) 04/03/17 04:38 Phosphorus 5.10 mg/dL (2.5-4.5) H 04/03/17 04:38 Troponin T 0.105 ng/mL (0.00-0.029) H* 04/02/17 13:23 NT-Pro-B Natriuret Pep 406745 pg/mL (0-900) H 03/31/17 08:03 Triglycerides 109 mg/dL (2-149) 03/31/17 07:57 Cholesterol 159 mg/dL (50-199) 03/31/17 07:57 LDL Cholesterol Direct 83 mg/dL (50-130) 03/31/17 07:57 HDL Cholesterol 55 mg/dL (40-59) 03/31/17 07:57 Cholesterol/HDL Ratio 2.89 % 03/31/17 07:57 Hepatitis A IgM Ab Non-reactive (NonReactive) 03/31/17 09:55 Hep Bs Antigen Non-reactive (Negative) 03/31/17 09:55 Hep B Core IgM Ab Non-reactive (NonReactive) 03/31/17 09:55 Hepatitis C Antibody Non-reactive (NonReactive) 03/31/17 09:55
[2017-04-04] MEDS: APRESOLINE PO SCH ×3 (05:53→22:20)
[2017-04-04 06:31] LABS: Basophils % (Auto) 0.4 % (0.0-1.8); Eosinophils % (Auto) 3.7 % (0.0-4.3); Hematocrit 35.4 % (30.3-42.9); Hemoglobin 11.6 gm/dl (10.1-14.3); Mean Corpuscular HGB Conc 33 % (30-34); Mean Corpuscular Hemoglobin 30 pg (28-32); Mean Corpuscular Volume 91 fl (79-97); Platelet Count 235 K/mm3 (140-440); Red Blood Count 3.91 M/mm3 (3.65-5.03); White Blood Count 7.6 K/mm3 (4.5-11.0)
[2017-04-04 06:52] LABS: Calcium 9.2 mg/dL (8.4-10.2); Phosphorous 5.3 mg/dL (2.5-4.5); Potassium 4.4 mmol/L (3.6-5.0)
--- NOTE | 2017-04-04 09:17 | XRay Report ---
AP CHEST :04/04/17 07:36 CLINICAL: Congestion. COMPARISON:03/31/17 FINDINGS: Stable cardiomegaly. Continued central vascular congestion with redistribution of pulmonary blood flow to the upper lobes.There has been some improvement with slight decrease bilateral multilobar lung opacification. However, continued bilateral diffuse multilobar reticular interstitial opacities and bilateral lower lobe subsegmental atelectasis. No tubes or lines. IMPRESSION: Improvement in CHF with multilobar interstitial pulmonary edema.
[2017-04-04] MEDS ORDERED: LEXISCAN IV ONE ×2 (10:05)
--- NOTE | 2017-04-04 11:43 | Progress Note ---
Assessment and Plan (1) ESRD (end stage renal disease) Current Visit: Yes Status: Acute Plan to address problem: s/p HD yesterday. Pt gets MWF HD outpatient. CXR still congested from daily. HD ordered for today. HD tomorrow as well per her MWF schedule. Assess dialysis needs daily Strict I&O's Obtain daily weights Renally dose meds Renal diet (2) Volume overload Current Visit: Yes Status: Acute Plan to address problem: Fluid restriction of 1 liter per day. UF with HD today. (3) Hypertension Current Visit: Yes Status: Acute Plan to address problem: Continue on anti-hypertensive agents and adjust as needed (4) Anemia in CKD (chronic kidney disease) Current Visit: Yes Status: Acute Plan to address problem: H/H stable. Epogen prn with HD Plan d/w bedside RN. Subjective Date of service: 04/04/17 Principal diagnosis: shortness of brreath from Pulm edema. ESRD on HD Interval history: S/p HD yesterday. Denies CP/SHOB. Objective - Exam Narrative Exam: General appearance: AAOX3 EENT: ATNC, PERRL, hearing intact, vision intact Neck: no JVD, supple Respiratory: Present: Coarse BS BL Cardiology: regular, S1S2 Gastrointestinal: normoactive bowel sounds Integumentary: warm and dry Neurologic: alert and oriented x3 Musculoskeletal: other (Left AVG has positive bruit and thrill) Psychiatric: mood/affect appropriate - Vital Signs Vital signs: Vital Signs - 12hr 04/03/17 04/04/17 04/04/17 23:47 05:27 05:53 Temperature 98.3 F 97.6 F Pulse Rate 94 H 92 H 92 H Respiratory 20 20 Rate Blood Pressure 127/84 133/80 133/80 O2 Sat by Pulse 95 97 Oximetry 04/04/17 07:16 Temperature 97.5 F L Pulse Rate 91 H Respiratory 18 Rate Blood Pressure 110/63 O2 Sat by Pulse 99 Oximetry - Lab 04/04/17 05:37 04/04/17 05:37 Most recent lab results Calcium 9.2 mg/dL (8.4-10.2) 04/04/17 05:37 Phosphorus 5.30 mg/dL (2.5-4.5) H 04/04/17 05:37
[2017-04-04] MEDS: COREG PO SCH ×2 (12:01→22:20)
[2017-04-04] MEDS: SENSIPAR PO SCH (12:01)
[2017-04-04] MEDS: KENALOG TP SCH (12:02)
[2017-04-04] MEDS: HEPARIN SUB-Q SCH ×2 (12:02→22:15)
[2017-04-04] MEDS: PEPCID PO SCH ×2 (12:02→21:43)
[2017-04-04] MEDS ORDERED: NACL 0.9% 100 ML IV PRN (12:23)
--- NOTE | 2017-04-04 12:57 | Progress Note ---
Assessment and Plan - Patient Problems (1) Pulmonary edema Current Visit: Yes Status: Acute Plan to address problem: Patient with end-stage renal disease on hemodialysis, presents with acute pulmonary edema. Continue aggressive hemodialysis for fluid management. We will get an echocardiogram for left ventricular function assessment. Patient likely has an underlying dilated cardiomyopathy based on massive cardiomegaly on chest x-ray. We will start afterload agents, optimal blood pressure management, beta blockers and oral antiplatelet therapy. Persantin thallium shows a dilated cardiomyopathy with normal perfusion. Subjective Date of service: 04/04/17 Principal diagnosis: shortness of brreath from Pulm edema. ESRD on HD Interval history: Patient states she is comfortable, no further shortness of breath. She looks and feels better. Persantine thallium stress test today demonstrated a dilated cardiomyopathy with normal perfusion, suggesting a nonischemic cardiomyopathy. Objective Vital Signs Temp Pulse Resp BP Pulse Ox 04/04/17 12:01 97 H 138/113 04/04/17 11:59 97 H 04/04/17 11:56 138/113 04/04/17 11:45 100 04/04/17 10:22 100 H 141/82 04/04/17 10:21 100 H 138/82 04/04/17 10:20 101 H 140/84 04/04/17 10:19 103 H 149/88 04/04/17 10:18 103 H 138/88 04/04/17 10:17 96 H 138/88 04/04/17 10:12 88 136/89 04/04/17 07:16 97.5 F L 91 H 18 110/63 99 04/04/17 05:53 92 H 133/80 04/04/17 05:27 97.6 F 92 H 20 133/80 97 04/03/17 23:47 98.3 F 94 H 20 127/84 95 04/03/17 22:15 79 128/84 04/03/17 22:00 99 04/03/17 16:52 98.5 F 107 H 18 128/84 93 04/03/17 15:57 154/80 04/03/17 15:51 98.2 F 106 H 20 147/88 99 04/03/17 13:45 98.4 F 66 18 165/80 04/03/17 13:35 96 H 110/48 04/03/17 13:30 94 H 107/44 04/03/17 13:15 98 H 150/98 04/03/17 13:00 101 H 116/99 - Physical Examination General: No Apparent Distress HEENT: Positive: PERRL Neck: Positive: neck supple, trachea midline Cardiac: Positive: Reg Rate and Rhythm Lungs: Positive: Decreased Breath Sounds Neuro: Positive: Grossly Intact Abdomen: Positive: Soft Skin: Positive: Clear Extremities: Absent: edema - Labs and Meds CBC 04/04/17 Range/Units 05:37 WBC 7.6 (4.5-11.0) K/mm3 RBC 3.91 (3.65-5.03) M/mm3 Hgb 11.6 (10.1-14.3) gm/dl Hct 35.4 (30.3-42.9) % Plt Count 235 (140-440) K/mm3 Lymph # 1.6 (1.2-5.4) K/mm3 [place] # 0.9 H (0.0-0.8) K/mm3 Eos # 0.3 (0.0-0.4) K/mm3 Baso # 0.0 (0.0-0.1) K/mm3 Comprehensive Metabolic Panel 04/04/17 Range/Units 05:37 Sodium 132 L (137-145) mmol/L Potassium 4.4 (3.6-5.0) mmol/L Chloride 88.0 L (98-107) mmol/L Carbon Dioxide 27 (22-30) mmol/L BUN 37 H (7-17) mg/dL Creatinine 4.7 H (0.7-1.2) mg/dL Glucose 105 H (65-100) mg/dL Calcium 9.2 (8.4-10.2) mg/dL
--- NOTE | 2017-04-04 17:41 | Progress Note ---
Assessment and Plan Assessment and plan: --Non specific elevated CE; sec to ESRD ,however ,multiple risk factors, cardiology evaluated the patient had Stress Test today, pending report --Acute pulmonary edema/secondary to fluid overload/resolved after hemodialysis Hemodialysis per schedule --Acute hypoxic respiratory failure ; due to fluid overload/missed HD, improved Oxygen , BiPAP as needed --Hyperkalemia; management per nephrology, --Medical noncompliance; counseling done advised to comply with dialysis, medications, diet and follow-up visits --Hypertension; controlled , continue antihypertensives, when necessary medications --Ongoing tobacco use; smoking cessation counseling done, nicotine patch as needed --DVT prophylaxis; heparin Follow stress test, if negative and patient is stable will discharge her home tomorrow History Interval history: Patient seen and examined, medical records reviewed Physical sites to better Receiving hemodialysis per schedule, possible stress test tomorrow Hospitalist Physical - Constitutional Vitals: Temp Pulse Resp BP Pulse Ox 97.9 F 98 H 18 127/86 98 04/04/17 14:40 04/04/17 14:40 04/04/17 14:40 04/04/17 14:40 04/04/17 14:40 General appearance: Present: no acute distress, well-nourished - EENT Eyes: Present: PERRL, EOM intact - Neck Neck: Present: supple, normal ROM - Respiratory Respiratory effort: normal Respiratory: bilateral: diminished, negative: rales, rhonchi, wheezing - Cardiovascular Rhythm: regular Heart Sounds: Present: S1 & S2 - Extremities Extremities: no ischemia, No edema - Abdominal General gastrointestinal: soft, non-tender, non-distended, normal bowel sounds - Integumentary Integumentary: Present: clear, warm - Psychiatric Psychiatric: appropriate mood/affect, cooperative - Neurologic Neurologic: CNII-XII intact, moves all extremities Results - Labs CBC & Chem 7: 04/05/17 05:34 04/05/17 05:34 Labs: Laboratory Last Values WBC 7.6 K/mm3 (4.5-11.0) 04/04/17 05:37 RBC 3.91 M/mm3 (3.65-5.03) 04/04/17 05:37 Hgb 11.6 gm/dl (10.1-14.3) 04/04/17 05:37 Hct 35.4 % (30.3-42.9) 04/04/17 05:37 MCV 91 fl (79-97) 04/04/17 05:37 MCH 30 pg (28-32) 04/04/17 05:37 MCHC 33 % (30-34) 04/04/17 05:37 RDW 16.0 % (13.2-15.2) H 04/04/17 05:37 Plt Count 235 K/mm3 (140-440) 04/04/17 05:37 Lymph % (Auto) 20.6 % (13.4-35.0) 04/04/17 05:37 [place] % (Auto) 11.4 % (0.0-7.3) H 04/04/17 05:37 Eos % (Auto) 3.7 % (0.0-4.3) 04/04/17 05:37 Baso % (Auto) 0.4 % (0.0-1.8) 04/04/17 05:37 Lymph # 1.6 K/mm3 (1.2-5.4) 04/04/17 05:37 [place] # 0.9 K/mm3 (0.0-0.8) H 04/04/17 05:37 Eos # 0.3 K/mm3 (0.0-0.4) 04/04/17 05:37 Baso # 0.0 K/mm3 (0.0-0.1) 04/04/17 05:37 Seg Neutrophils % 63.9 % (40.0-70.0) 04/04/17 05:37 Seg Neutrophils # 4.9 K/mm3 (1.8-7.7) 04/04/17 05:37 PT 13.7 Sec. (12.2-14.9) 03/31/17 08:03 INR 1.00 (0.87-1.13) 03/31/17 08:03 Sodium 132 mmol/L (137-145) L 04/04/17 05:37 Potassium 4.4 mmol/L (3.6-5.0) 04/04/17 05:37 Chloride 88.0 mmol/L (98-107) L 04/04/17 05:37 Carbon Dioxide 27 mmol/L (22-30) 04/04/17 05:37 Anion Gap 21 mmol/L 04/04/17 05:37 BUN 37 mg/dL (7-17) H 04/04/17 05:37 Creatinine 4.7 mg/dL (0.7-1.2) H 04/04/17 05:37 Estimated GFR 12 ml/min 04/04/17 05:37 BUN/Creatinine Ratio 8 % 04/04/17 05:37 Glucose 105 mg/dL (65-100) H 04/04/17 05:37 POC Glucose 79 (70-105) 04/02/17 16:23 Calcium 9.2 mg/dL (8.4-10.2) 04/04/17 05:37 Phosphorus 5.30 mg/dL (2.5-4.5) H 04/04/17 05:37 Troponin T 0.105 ng/mL (0.00-0.029) H* 04/02/17 13:23 NT-Pro-B Natriuret Pep 435756 pg/mL (0-900) H 03/31/17 08:03 Triglycerides 109 mg/dL (2-149) 03/31/17 07:57 Cholesterol 159 mg/dL (50-199) 03/31/17 07:57 LDL Cholesterol Direct 83 mg/dL (50-130) 03/31/17 07:57 HDL Cholesterol 55 mg/dL (40-59) 03/31/17 07:57 Cholesterol/HDL Ratio 2.89 % 03/31/17 07:57 Hepatitis A IgM Ab Non-reactive (NonReactive) 03/31/17 09:55 Hep Bs Antigen Non-reactive (Negative) 03/31/17 09:55 Hep B Core IgM Ab Non-reactive (NonReactive) 03/31/17 09:55 Hepatitis C Antibody Non-reactive (NonReactive) 03/31/17 09:55
[2017-04-04] MEDS: BENADRYL PO PRN (21:43)
[2017-04-04] MEDS: PERCOCET 5/325 PO PRN (21:44)
[2017-04-05] MEDS: KENALOG TP SCH (00:45)
--- NOTE | 2017-04-05 01:03 | Treadmill Report ---
THALLIUM STRESS TEST LEFT VENTRICLE: Left ventricle is severely dilated. There is fairly homogeneous uptake of the tracer in all segments, no significant perfusion defects identified. Gated analysis demonstrates severe left ventricular systolic dysfunction with ejection fraction calculated at 24%. CONCLUSION: Evidence of severe dilated cardiomyopathy, severe left ventricular systolic dysfunction. Perfusion study demonstrates homogeneous uptake, suggestive of a nonischemic cardiomyopathy. Clinical correlation is recommended. JOB# [id number] CA/NTS
[2017-04-05 06:19] LABS: Basophils % (Auto) 0.5 % (0.0-1.8); Eosinophils % (Auto) 4.6 % (0.0-4.3); Hemoglobin 10.2 gm/dl (10.1-14.3); Mean Corpuscular HGB Conc 33 % (30-34); Mean Corpuscular Hemoglobin 30 pg (28-32); Mean Corpuscular Volume 90 fl (79-97); Platelet Count 212 K/mm3 (140-440); Red Blood Count 3.45 M/mm3 (3.65-5.03); Red Cell Distribution Width 15.7 % (13.2-15.2); White Blood Count 6.9 K/mm3 (4.5-11.0)
[2017-04-05 06:37] LABS: Chloride 89.3 mmol/L (98-107); Phosphorous 6.5 mg/dL (2.5-4.5); Potassium 5.2 mmol/L (3.6-5.0)
[2017-04-05] MEDS: APRESOLINE PO SCH (06:50)
--- NOTE | 2017-04-05 09:34 | Progress Note ---
Assessment and Plan Acute Pulmonary edema - resolved ESRD on dialysis Dilated Cardiomyopathy EF 15-20% on echocardiogram No ischemia on MPI Elevated troponin likely in the setting renal disease Hypertension Recommendations: Hemodialysis for fluid management. Continue afterload agents, beta blockers and oral antiplatelet therapy for her dilated CMP. May go home cardiac donald and follow-up as outpatient Subjective Date of service: 04/05/17 Principal diagnosis: shortness of brreath from Pulm edema. ESRD on HD Interval history: Patient is doing well She denies chest pain or shortness of breath She wants to go home after HD Objective Vital Signs Temp Pulse Resp BP Pulse Ox 04/05/17 00:33 98.6 F 86 22 137/83 96 04/04/17 23:28 88 18 98 04/04/17 19:39 96 H 126/82 04/04/17 14:40 97.9 F 98 H 18 127/86 98 04/04/17 12:01 97 H 138/113 04/04/17 11:59 97 H 04/04/17 11:56 138/113 04/04/17 11:45 100 04/04/17 10:22 100 H 141/82 04/04/17 10:21 100 H 138/82 04/04/17 10:20 101 H 140/84 04/04/17 10:19 103 H 149/88 04/04/17 10:18 103 H 138/88 04/04/17 10:17 96 H 138/88 04/04/17 10:12 88 136/89 - Physical Examination General: No Apparent Distress HEENT: Positive: PERRL Neck: Positive: neck supple, trachea midline Cardiac: Positive: Reg Rate and Rhythm Lungs: Positive: Normal Exam Neuro: Positive: Grossly Intact Abdomen: Positive: Soft Skin: Positive: Clear Extremities: Absent: edema - Labs and Meds CBC 04/05/17 Range/Units 05:34 WBC 6.9 (4.5-11.0) K/mm3 RBC 3.45 L (3.65-5.03) M/mm3 Hgb 10.2 (10.1-14.3) gm/dl Hct 31.0 (30.3-42.9) % Plt Count 212 (140-440) K/mm3 Lymph # 1.7 (1.2-5.4) K/mm3 [place] # 0.9 H (0.0-0.8) K/mm3 Eos # 0.3 (0.0-0.4) K/mm3 Baso # 0.0 (0.0-0.1) K/mm3 Comprehensive Metabolic Panel 04/05/17 Range/Units 05:34 Sodium 134 L (137-145) mmol/L Potassium 5.2 H (3.6-5.0) mmol/L Chloride 89.3 L (98-107) mmol/L Carbon Dioxide 24 (22-30) mmol/L BUN 65 H (7-17) mg/dL Creatinine 6.5 H (0.7-1.2) mg/dL Glucose 81 (65-100) mg/dL Calcium 9.0 (8.4-10.2) mg/dL
--- NOTE | 2017-04-05 10:45 | Progress Note ---
Assessment and Plan (1) ESRD (end stage renal disease) Current Visit: Yes Status: Acute Plan to address problem: HD today. Pt gets MWF HD outpatient. Plan for MWF HD but will eval daily. Check CXR in am for volume status. Assess dialysis needs daily Strict I&O's Obtain daily weights Renally dose meds Renal diet (2) Volume overload Current Visit: Yes Status: Acute Plan to address problem: Fluid restriction of 1 liter per day. UF with HD today. (3) Hypertension Current Visit: Yes Status: Acute Plan to address problem: Continue on anti-hypertensive agents and adjust as needed (4) Anemia in CKD (chronic kidney disease) Current Visit: Yes Status: Acute Plan to address problem: H/H stable. Epogen prn with HD Plan d/w HD RN. Subjective Date of service: 04/05/17 Principal diagnosis: shortness of brreath from Pulm edema. ESRD on HD Interval history: Seen on HD. Denies CP/SHOB. Objective - Exam Narrative Exam: General appearance: AAOX3 EENT: ATNC, PERRL, hearing intact, vision intact Neck: no JVD, supple Respiratory: Present: Coarse BS BL Cardiology: regular, S1S2 Gastrointestinal: normoactive bowel sounds Integumentary: warm and dry Neurologic: alert and oriented x3 Musculoskeletal: other (Left AVG has positive bruit and thrill) Psychiatric: mood/affect appropriate - Vital Signs Vital signs: Vital Signs - 12hr 04/04/17 04/05/17 23:28 00:33 Temperature 98.6 F Pulse Rate 88 86 Respiratory 18 22 Rate Blood Pressure 137/83 O2 Sat by Pulse 98 96 Oximetry - Lab 04/05/17 05:34 04/05/17 05:34 Most recent lab results Calcium 9.0 mg/dL (8.4-10.2) 04/05/17 05:34 Phosphorus 6.50 mg/dL (2.5-4.5) H D 04/05/17 05:34
[2017-04-05] MEDS ORDERED: NACL 0.9 (PRIMING MACHINE ONLY DIALYSIS) MC ONE (10:58)
[2017-04-05] MEDS: BENADRYL PO PRN (11:01)
--- NOTE | 2017-04-05 15:21 | Discharge Summary ---
Providers - Providers Date of Admission: 03/31/17 08:28 Date of discharge: 04/05/17 Attending physician: KATELIN CANTU 03/31/17 07:57 Consult to Physician [CONS] Urgent Consulting Provider: MARTHA DARLING Reason For Exam: esrd Notified:: awaiting call back 04/01/17 14:56 Consult to Physician [CONS] Routine Consulting Provider: ISABELLE FLORES Reason For Exam: chest pain and elelvated Jena though with ESRD Place consult to:: Irina Notified:: PLEASE CALL MD IN AM Was contact made?: No Comment:: said to place patient on list Primary care physician: [employer] Hospitalization Reason for admission: worsening shortness of breath/hemodialysis Condition: Good Pertinent studies: Stress test; nonischemic cardiomyopathy, ejection fraction 24% Hospital course: 51-year-old -[place] female patient with significant history of hypertension and end-stage renal disease on hemodialysis congestive heart failure was admitted through emergency room with worsening shortness of breath, missed dialysis Patient was admitted to the hospital symptomatically managed Evaluation by professor of communication and writing, received hemodialysis per schedule Seen by cardiology for chest pain, had stress test which was negative for reversible ischemia Medications optimize symptoms significantly improved Smoking cessation counseling done advised nicotine patch The day of discharge patient is comfortable no new complaints, like a signs stable, physical examination before discharge is unremarkable Discharge diagnosis; --Non specific elevated CE; sec to ESRD ; stress test negative --Acute pulmonary edema/secondary to fluid overload/resolved after hemodialysis --Acute hypoxic respiratory failure ; due to fluid overload/missed HD, improved --Hyperkalemia; corrected --Medical noncompliance; counseling done --Hypertension; controlled , continue antihypertensives, when necessary medications --Ongoing tobacco use; smoking cessation counseling done, nicotine patch as needed Disposition: DC-01 TO HOME OR SELFCARE Time spent for discharge: 32 min Core Measure Documentation - Palliative Care Palliative Care/ Comfort Measures: Not Applicable - Core Measures Any of the following diagnoses?: heart failure - Heart Failure Discharge Requirements OMAR/ARB for LVSD if EF <40%: No Reason for no OMAR/ARB: Renal impairment Beta josie at discharge: Yes Exam - Constitutional Vitals: Temp Pulse Resp BP Pulse Ox 98.6 F 86 22 137/83 96 04/05/17 00:33 04/05/17 00:33 04/05/17 00:33 04/05/17 00:33 04/05/17 00:33 General appearance: Present: no acute distress, well-nourished - EENT Eyes: Present: PERRL, EOM intact - Neck Neck: Present: supple, normal ROM - Respiratory Respiratory effort: normal Respiratory: negative: rales, rhonchi, wheezing - Cardiovascular Rhythm: regular Heart Sounds: Present: S1 & S2 - Extremities Extremities: no ischemia, No edema - Abdominal General gastrointestinal: Present: soft, non-tender, non-distended - Integumentary Integumentary: Present: clear, warm - Musculoskeletal Musculoskeletal: strength equal bilaterally - Psychiatric Psychiatric: appropriate mood/affect, cooperative - Neurologic Neurologic: CNII-XII intact, moves all extremities Plan Activity: no restrictions Diet: renal Special Instructions: smoking cessation Additional Instructions: f/u renal and HD per schedule Follow up with: PRIMARY CAREMD [Primary Care Provider] - 3-5 Days ANDREA LUNA MD [Staff Physician] - 7 Days ISABELLE FLORES MD [Staff Physician] - 7 Days Prescriptions: Carvedilol [Coreg] 6.25 mg PO BID #60 tablet Famotidine [Pepcid] 10 mg PO BID #60 tablet hydrALAZINE [Apresoline TAB] 10 mg PO Q8H #60 tablet Nicotine [Nicotine Patch] 1 each TD DAILY #30 patch.td24 oxyCODONE /ACETAMINOPHEN [Percocet 5/325] 1 tab PO QHS PRN #7 tablet PRN Reason: Pain Triamcinolone 0.5% [Kenalog 0.5% CREAM] 1 applic TP BID #1 tube
[2017-04-05 16:25] VITALS: BP 108/77
[2017-04-05] MEDS: SENSIPAR PO SCH (17:37)
[2017-04-05] MEDS: COREG PO SCH (17:37)
--- NOTE | 2017-04-10 13:17 | Query- Heart Failure ---
Dear ____Yosi Date:____04/10/17 Health Services Information Specialist/CDS: Cheryl / David Phone#:__[phone] Exercise your independent professional judgment when responding to query. Questions asked do not imply a particular answer is desired or expected. We greatly appreciate your clarification on this issue. Clinical Documentation States: 51 year old female was admitted on 03/31/17 The discharge summary (Dr. Deluca) states " --Acute pulmonary edema/secondary to fluid overload/resolved after hemodialysis Hemodialysis per schedule --Acute hypoxic respiratory failure ; due to fluid overload/missed HD, improved Oxygen , BiPAP as needed " The cardiology consult note (Dr. Arevalo) states " She reports a history of "congestive heart failure", but is unable to provide details of any specific cardiac workup Consult reason: congestive heart failure, shortness of breath Past Medical History: dialysis, ESRD, heart failure, hypertension" Clinical Findings Show: The Echocardiography report states " The estimated ejection fraction is 15-20%. Global left ventricular systolic function is severely decreased " BNP: [id number] If possible, Please Clarify if you mean: Acuity: [ ] Acute [x ] Acute on Chronic [ ] Chronic Type: [ x] Systolic Heart Failure [ ] Diastolic Heart Failure [ ] Combined Heart Failure [ ] Other: Present on Admission: [ x] Yes (Y) [ ] Clinically undeterminable (W) [ ] No (N) Please also document response in your Progress Notes and/or Discharge Summary and indicate if the condition was present on admission. MTDD
== END 2017-04-05 18:40 | disposition home or self-care (01) | DRG 291 ==
LOC: ED 07:23 → 3A 08:28
PROVIDERS: ADMIT Internal Medicine; ATTEND Internal Medicine
PROC: 5A1D70Z Performance of Urinary Filtration, Intermittent, Less than 6 Hours Per Day (ICD-10-PCS; principal; 2017-03-31)
PROC: 5A1D70Z Performance of Urinary Filtration, Intermittent, Less than 6 Hours Per Day (ICD-10-PCS; 2017-04-01)
PROC: 5A1D70Z Performance of Urinary Filtration, Intermittent, Less than 6 Hours Per Day (ICD-10-PCS; 2017-04-03)
PROC: 5A1D70Z Performance of Urinary Filtration, Intermittent, Less than 6 Hours Per Day (ICD-10-PCS; 2017-04-05)
DX: I13.2 Hypertensive heart and chronic kidney disease with heart failure and with stage 5 chronic kidney disease, or end stage renal disease (principal); I50.23 Acute on chronic systolic (congestive) heart failure; J96.01 Acute respiratory failure with hypoxia; N18.6 End stage renal disease; J81.0 Acute pulmonary edema; N25.81 Secondary hyperparathyroidism of renal origin; I42.0 Dilated cardiomyopathy; E87.70 Fluid overload, unspecified; E87.5 Hyperkalemia; F17.200 Nicotine dependence, unspecified, uncomplicated; D63.1 Anemia in chronic kidney disease; F41.9 Anxiety disorder, unspecified; Z90.710 Acquired absence of both cervix and uterus; Z91.14 Patient's other noncompliance with medication regimen; Z71.89 Other specified counseling; Z71.6 Tobacco abuse counseling; Z79.899 Other long term (current) drug therapy; Z82.49 Family history of ischemic heart disease and other diseases of the circulatory system
CPT/HCPCS: 36415; 71010; 78452; 80048; 80061; 80074; 82962; 83880; 84100; 84484; 85025; 85610; 93005; 93010; 93017; 93306; 94760; 96374; 99291; 99406; A6250; A9502; J0360; J1200; J1644; J2060; J2785; J7030; P9047

== ENCOUNTER 2017-05-01 22:35 | Inpatient (IN) | payer MEDICARE ==
[2017-05-01] MEDS ORDERED: XOPENEX IH ONE (23:01)
[2017-05-01] MEDS ORDERED: ATROVENT IH ONE (23:01)
--- NOTE | 2017-05-01 23:06 | Emergency Department Report ---
ED Shortness of Breath HPI - General Chief Complaint: Dyspnea/Respdistress Stated Complaint: MARCE Time Seen by Provider: 05/01/17 22:57 Source: patient, EMS Mode of arrival: Stretcher Limitations: No Limitations - History of Present Illness Initial Comments: Patient is 51 years old female history of end-stage renal disease she is on hemodialysis, history of COPD and hypertension. Patient stated that she missed her dialysis yesterday, she presented today with shortness of breath and difficulty breathing since last night. Patient denied any chest pain and fever nausea or vomiting. MD Complaint: shortness of breath -: Gradual, Last night Severity: moderate Pain Scale: 5 Known History Of: COPD - Related Data Home Medications Medication Instructions Recorded Confirmed Last Taken Cinacalcet HCl [Sensipar] 120 mg PO DAILY 03/31/17 03/31/17 03/30/17 Previous Rx's Medication Instructions Recorded Last Taken Type Carvedilol [Coreg] 6.25 mg PO BID #60 tablet 04/05/17 Unknown Rx Famotidine [Pepcid] 10 mg PO BID #60 tablet 04/05/17 Unknown Rx Nicotine [Nicotine Patch] 1 each TD DAILY #30 patch.td24 04/05/17 Unknown Rx Triamcinolone 0.5% [Kenalog 0.5% 1 applic TP BID #1 tube 04/05/17 Unknown Rx CREAM] hydrALAZINE [Apresoline TAB] 10 mg PO Q8H #60 tablet 04/05/17 Unknown Rx oxyCODONE /ACETAMINOPHEN [Percocet 1 tab PO QHS PRN #7 tablet 04/05/17 Unknown Rx 5/325] Allergies Allergy/AdvReac Type Severity Reaction Status Date / Time No Known Allergies Allergy Verified 05/01/17 22:40 ED Review of Systems ROS: Stated complaint: MARCE Other details as noted in HPI Comment: All other systems reviewed and negative Constitutional: denies: chills, fever Respiratory: cough, orthopnea, shortness of breath, SOB with exertion, SOB at rest, wheezing. denies: stridor Cardiovascular: denies: chest pain Gastrointestinal: denies: abdominal pain, nausea, vomiting, diarrhea, constipation, hematemesis Neurological: denies: headache, weakness, numbness, paresthesias ED Past Medical Hx - Past Medical History Previous Medical History?: Yes Hx Hypertension: Yes Hx Congestive Heart Failure: Yes Hx Renal Disease: Yes (M,W,F) - Surgical History Past Surgical History?: Yes Additional Surgical History: hysterectomy. bowel obstruction - Social History Smoking Status: Current Every Day Smoker Substance Use Type: None - Medications Home Medications: Home Medications Medication Instructions Recorded Confirmed Last Taken Type Cinacalcet HCl [Sensipar] 120 mg PO DAILY 03/31/17 03/31/17 03/30/17 History Carvedilol [Coreg] 6.25 mg PO BID #60 tablet 04/05/17 Unknown Rx Famotidine [Pepcid] 10 mg PO BID #60 tablet 04/05/17 Unknown Rx Nicotine [Nicotine Patch] 1 each TD DAILY #30 patch.td24 04/05/17 Unknown Rx Triamcinolone 0.5% [Kenalog 0.5% 1 applic TP BID #1 tube 04/05/17 Unknown Rx CREAM] hydrALAZINE [Apresoline TAB] 10 mg PO Q8H #60 tablet 04/05/17 Unknown Rx oxyCODONE /ACETAMINOPHEN [Percocet 1 tab PO QHS PRN #7 tablet 04/05/17 Unknown Rx 5/325] ED Physical Exam - General Limitations: No Limitations General appearance: alert, in distress (moderate respiratory distress) - Head Head exam: Present: atraumatic, normocephalic - ENT ENT exam: Present: normal exam, normal orophraynx, mucous membranes moist - Neck Neck exam: Present: normal inspection, full ROM. Absent: tenderness, meningismus, lymphadenopathy - Respiratory Respiratory exam: Present: respiratory distress, wheezes, rales, rhonchi, accessory muscle use, decreased breath sounds, prolonged expiratory. Absent: stridor - Cardiovascular Cardiovascular Exam: Present: regular rate, normal rhythm, normal heart sounds - GI/Abdominal GI/Abdominal exam: Present: soft, normal bowel sounds. Absent: distended, tenderness, guarding, rebound, rigid, organomegaly, mass, bruit, pulsatile mass , hernia - Extremities Exam Extremities exam: Present: normal inspection, normal capillary refill - Back Exam Back exam: Present: normal inspection, full ROM. Absent: tenderness, CVA tenderness (R), CVA tenderness (L), muscle spasm, paraspinal tenderness - Neurological Exam Neurological exam: Present: alert, oriented X3, CN II-XII intact, normal gait, reflexes normal. Absent: abnormal gait, motor sensory deficit - Skin Skin exam: Present: warm, intact, normal color ED Course Vital Signs 05/01/17 05/01/17 05/01/17 22:42 22:45 23:00 Pulse Rate 95 H Respiratory 31 H 31 H Rate Blood Pressure 148/87 148/87 O2 Sat by Pulse 98 100 99 Oximetry 05/01/17 23:06 Pulse Rate Respiratory 30 H Rate Blood Pressure O2 Sat by Pulse 97 Oximetry ED Medical Decision Making - Lab Data Result diagrams: 05/01/17 22:48 05/01/17 22:48 - EKG Data -: EKG Interpreted by Me EKG shows normal: sinus rhythm Rate: normal - EKG Data Interpretation: no acute changes - Radiology Data Radiology results: image reviewed Chest x-ray showed volume overload. - Medical Decision Making Discussed with Dr. mendiola, the patient, he stated that he is calling for emergency dialysis. Discussed with his doctor Torres, I presented the patient to her, she agreed to admit the patient to her service. Critical Care Time: Yes Critical care time in (mins) excluding proc time.: 35 Critical care attestation.: If time is entered above; I have spent that time in minutes in the direct care of this critically ill patient, excluding procedure time. ED Disposition Clinical Impression: Acute hyperkalemia, Pulmonary edema, Volume overload, ESRD (end stage renal disease) Disposition: 09 OP ADMIT IP TO THIS HOSP Is pt being admited?: Yes Condition: Stable Instructions: Pulmonary Edema (ED) Referrals: DIANNA FONTENOT MD [Primary Care Provider] - 3-5 Days
[2017-05-01 23:10] LABS: Basophils % (Auto) 0.6 % (0.0-1.8); Eosinophils % (Auto) 3.1 % (0.0-4.3); Hematocrit 28.6 % (30.3-42.9); Hemoglobin 8.8 gm/dl (10.1-14.3); Mean Corpuscular HGB Conc 31 % (30-34); Mean Corpuscular Hemoglobin 29 pg (28-32); Mean Corpuscular Volume 93 fl (79-97); Platelet Count 250 K/mm3 (140-440); Red Blood Count 3.08 M/mm3 (3.65-5.03); White Blood Count 9.3 K/mm3 (4.5-11.0)
[2017-05-01 23:23] LABS: Calcium 8.4 mg/dL (8.4-10.2); Chloride 96.8 mmol/L (98-107)
[2017-05-01 23:28] LABS: Potassium 6.9 mmol/L (3.6-5.0)
[2017-05-01] MEDS ORDERED: D50W (25GM) Syringe IV ONE (23:32)
[2017-05-01] MEDS ORDERED: KIONEX PO ONE (23:32)
[2017-05-01] MEDS ORDERED: CALCIUM GLUCONATE 1,000 MG in NACL 0.9% 100 ML IV ONE (23:32)
--- NOTE | 2017-05-02 00:04 | XRay Report ---
FINAL REPORT PROCEDURE: Chest. TECHNIQUE: Portable AP view. HISTORY: Shortness of breath. COMPARISON: No prior studies are available for comparison. FINDINGS: The heart size is mildly enlarged. Pulmonary vascularity is probably within normal limits. There is some streaky, ill-defined opacity in the left midlung. This could represent chronic scarring, subsegmental atelectasis or perhaps pneumonia. There is mild thickening of the minor fissure. There are no definite pleural effusions. Follow-up imaging is suggested to document clearing. The soft tissues and regional skeleton are unremarkable. There is calcification and mild tortuosity in the thoracic aorta. IMPRESSION: Cardiomegaly. Abnormal left midlung opacity with follow-up recommended.
[2017-05-02] MEDS ORDERED: NACL 0.9% 100 ML IV PRN ×2 (00:05→08:40)
[2017-05-02] MEDS ORDERED: PERCOCET 5/325 PO PRN (00:13)
[2017-05-02] MEDS ORDERED: APRESOLINE IV PRN (00:13)
[2017-05-02] MEDS ORDERED: DULCOLAX PR PRN (00:14)
[2017-05-02] MEDS ORDERED: ZOFRAN IV PRN (00:14)
[2017-05-02] MEDS ORDERED: TYLENOL PO PRN (00:14)
--- NOTE | 2017-05-02 00:22 | History and Physical Report ---
History of Present Illness Chief complaint: sob History of present illness: 51f with pmh dialysis, ESRD, heart failure, hypertension, known to have poor compliance with meds and HD, still smoking cigarettes. She presents due to she missed her dialysis,presented for shortness of breath, orthopnea and dyspnea on exertion. She denies chest pain. Denies palpitations. She states that she is breathing very fast and can't seem to catch her breath. No fevers, no chills, no diarrhea, no nausea, no focal weakness. She claims that her transportation never showed up for HD, and that she called them many times and they did not answer nor call her back Past History Past Medical History: dialysis, ESRD, heart failure, hypertension, other Past Surgical History: Other (AV graft) Social history: lives with family, smoking (currently, 0.5 ppd for decades), alcohol abuse, prescription drug abuse Family history: hypertension Medications and Allergies Allergies Allergy/AdvReac Type Severity Reaction Status Date / Time heparin Allergy Itching Verified 05/02/17 00:12 Home Medications Medication Instructions Recorded Confirmed Last Taken Type Cinacalcet HCl [Sensipar] 120 mg PO DAILY 03/31/17 03/31/17 03/30/17 History Carvedilol [Coreg] 6.25 mg PO BID #60 tablet 04/05/17 Unknown Rx Famotidine [Pepcid] 10 mg PO BID #60 tablet 04/05/17 Unknown Rx Nicotine [Nicotine Patch] 1 each TD DAILY #30 patch.td24 04/05/17 Unknown Rx Triamcinolone 0.5% [Kenalog 0.5% 1 applic TP BID #1 tube 04/05/17 Unknown Rx CREAM] hydrALAZINE [Apresoline TAB] 10 mg PO Q8H #60 tablet 04/05/17 Unknown Rx oxyCODONE /ACETAMINOPHEN [Percocet 1 tab PO QHS PRN #7 tablet 04/05/17 Unknown Rx 5/325] Active Meds: Active Medications Sodium Chloride (Nacl 0.9%) 100 mls @ 999 mls/hr IV PAULA PRN PRN Reason: Hypotension Review of Systems All systems: negative (14 point review of systems is otherwise negative) Cardiovascular: orthopnea, shortness of breath, paroxysmal nocturnal dyspnea Respiratory: shortness of breath, dyspnea on exertion Gastrointestinal: no nausea Exam - Constitutional Vitals: Temp Pulse Resp BP Pulse Ox 95 H 30 H 148/87 97 05/01/17 23:00 05/01/17 23:06 05/01/17 23:00 05/01/17 23:06 General appearance: Present: no acute distress, well-nourished - EENT Eyes: Present: PERRL ENT: hearing intact, clear oral mucosa - Neck Neck: Present: supple, normal ROM - Respiratory Respiratory effort: normal Respiratory: bilateral: CTA, rales - Cardiovascular Heart Sounds: Present: S1 & S2. Absent: rub, click - Extremities Extremities: pulses symmetrical, No edema Peripheral Pulses: within normal limits - Abdominal General gastrointestinal: Present: soft, non-tender, non-distended, normal bowel sounds Female genitourinary: Present: normal - Integumentary Integumentary: Present: clear, warm, dry - Musculoskeletal Musculoskeletal: gait normal, strength equal bilaterally - Psychiatric Psychiatric: appropriate mood/affect, intact judgment & insight - Neurologic Neurologic: CNII-XII intact, moves all extremities Results - Labs CBC & Chem 7: 05/01/17 22:48 05/01/17 22:48 Labs: Laboratory Last Values WBC 9.3 K/mm3 (4.5-11.0) 05/01/17 22:48 RBC 3.08 M/mm3 (3.65-5.03) L 05/01/17 22:48 Hgb 8.8 gm/dl (10.1-14.3) L 05/01/17 22:48 Hct 28.6 % (30.3-42.9) L 05/01/17 22:48 MCV 93 fl (79-97) 05/01/17 22:48 MCH 29 pg (28-32) 05/01/17 22:48 MCHC 31 % (30-34) 05/01/17 22:48 RDW 17.0 % (13.2-15.2) H 05/01/17 22:48 Plt Count 250 K/mm3 (140-440) 05/01/17 22:48 Lymph % (Auto) 15.5 % (13.4-35.0) 05/01/17 22:48 [place] % (Auto) 10.0 % (0.0-7.3) H 05/01/17 22:48 Eos % (Auto) 3.1 % (0.0-4.3) 05/01/17 22:48 Baso % (Auto) 0.6 % (0.0-1.8) 05/01/17 22:48 Lymph # 1.4 K/mm3 (1.2-5.4) 05/01/17 22:48 [place] # 0.9 K/mm3 (0.0-0.8) H 05/01/17 22:48 Eos # 0.3 K/mm3 (0.0-0.4) 05/01/17 22:48 Baso # 0.1 K/mm3 (0.0-0.1) 05/01/17 22:48 Seg Neutrophils % 70.8 % (40.0-70.0) H 05/01/17 22:48 Seg Neutrophils # 6.6 K/mm3 (1.8-7.7) 05/01/17 22:48 Sodium 137 mmol/L (137-145) 05/01/17 22:48 Potassium 6.9 mmol/L (3.6-5.0) H* 05/01/17 22:48 Chloride 96.8 mmol/L (98-107) L 05/01/17 22:48 Carbon Dioxide 20 mmol/L (22-30) L 05/01/17 22:48 Anion Gap 27 mmol/L 05/01/17 22:48 BUN 81 mg/dL (7-17) H 05/01/17 22:48 Creatinine 9.0 mg/dL (0.7-1.2) H 05/01/17 22:48 Estimated GFR 6 ml/min 05/01/17 22:48 BUN/Creatinine Ratio 9 % 05/01/17 22:48 Glucose 91 mg/dL (65-100) 05/01/17 22:48 Calcium 8.4 mg/dL (8.4-10.2) 05/01/17 22:48 Troponin T 0.088 ng/mL (0.00-0.029) H 05/01/17 22:48 - Imaging and Cardiology Chest x-ray: image reviewed (Cardiomegaly. Abnormal left midlung opacity with follow-up ) Assessment and Plan Assessment and plan: 51F with poor medical compliance --Acute pulmonary edema/secondary to fluid overload/due to missed hemodialysis Nephrology evaluation, stat hemodialysis, supportive care --Acute respiratory failure ; due to fluid overload/missed HD, RR above 30 supplemental oxygen as needed, for urgent HD --Hyperkalemia; for urgent HD, put on remote tele until resolved -has received kayexalate --Abnormal CXR . "Abnormal left midlung opacity" obtain CT chest w/o contrast for better characterization --Medical noncompliance; counseling done advised to comply with dialysis, medications, diet and follow-up visits --Hypertension; resume home antihypertensives, when necessary medications --Ongoing tobacco use; smoking cessation counseling done, nicotine patch as needed --DVT prophylaxis; allergic to heparin, scds and early ambulation
--- NOTE | 2017-05-02 05:06 | Cat Scan Report ---
FINAL REPORT PROCEDURE: CT CHEST WO CON TECHNIQUE: Computerized axial tomography of the chest was performed without contrast material. This study is performed without intravenous contrast and the sensitivity for pathology, including neoplasms, adenopathy, abscess, pulmonary embolism and aortic dissection, is reduced. HISTORY: Abnormal left midlung opacity COMPARISON: Chest x-ray 05/01/2017 TECHNICAL QUALITY: Satisfactory. FINDINGS: Heart and pericardium: Heart is enlarged.. Thoracic aorta: Normal. Pulmonary vasculature: Normal. Lymph nodes: No enlarged thoracic lymph nodes. Lungs: Lungs are well-expanded. There is moderate centrilobular emphysema. There is bilateral perihilar pulmonary edema. There are multiple focal areas of discoid atelectasis in the mid and lower lung zones greater on the left. There is no mass.. Pleural space: No effusion, thickening, or pneumothorax. Musculoskeletal structures: No significant abnormality. Upper abdominal structures: There is generalized sclerosis of the bony structures. This could be due to metabolic bone disease, renal osteodystrophy or metastatic malignancy. Clinical correlation suggested.. IMPRESSION: Heart is enlarged.. Lungs are well-expanded. There is moderate centrilobular emphysema. There is bilateral perihilar pulmonary edema. There are multiple focal areas of discoid atelectasis in the mid and lower lung zones greater on the left. There is no mass.. There is no pleural effusion or pneumothorax. There is generalized sclerosis of the bony structures. This could be due to metabolic bone disease, renal osteodystrophy or metastatic malignancy. Clinical correlation suggested.. .
--- NOTE | 2017-05-02 08:11 | Consultation ---
History of Present Illness - Reason for Consult Consult date: 05/02/17 end stage renal disease, hyperkalemia, metabolic acidosis, other (volume overload) - History of Present Illness The patient is a 51 AAF with medical history significant for ESRD on hemodialysis on MWFs, Systolic CHF, Hypertension and tobacco smoking who came to the ED with one day h/o shortness of breath. Patient missed her hemodialysis on 04/30/17. Associated symptoms include orthopnea and cough. Chest Xray showed pulmonary edema and her potassium was 6.9. Patient had urgent hemodialysis last night and her symptoms have improved now. No h/o fever , chills, N, V, D, CP or hemoptysis. Patient gets hemodialysis at [facility] and followed by . Past History Past Medical History: dialysis, ESRD, heart failure, hypertension, other Past Surgical History: Other (AV graft) Social history: lives with family, smoking (currently, 0.5 ppd for decades), alcohol abuse, prescription drug abuse Family history: hypertension Medications and Allergies Allergies Allergy/AdvReac Type Severity Reaction Status Date / Time heparin Allergy Itching Verified 05/02/17 00:12 Home Medications Medication Instructions Recorded Confirmed Last Taken Type Cinacalcet HCl [Sensipar] 60 mg PO DAILY 03/31/17 05/02/17 03/30/17 History Carvedilol [Coreg] 6.25 mg PO BID #60 tablet 04/05/17 05/02/17 Unknown Rx hydrALAZINE [Apresoline TAB] 10 mg PO Q8H #60 tablet 04/05/17 05/02/17 Unknown Rx Lisinopril [Zestril TAB] 40 mg PO QDAY 05/02/17 05/02/17 Unknown History amLODIPine [Norvasc] 10 mg PO DAILY 05/02/17 05/02/17 Unknown History Active Meds: Active Medications Acetaminophen (Tylenol) 650 mg PO Q4H PRN PRN Reason: Pain MILD(1-3)/Fever >100.5/HERNANDEZ Bisacodyl (Dulcolax) 10 mg CA QDAY PRN PRN Reason: Constipation unrelieved by MOM Carvedilol (Coreg) 6.25 mg PO BID ALEX Cinacalcet (Sensipar) 120 mg PO QDAY ALEX Famotidine (Pepcid) 10 mg PO BID ALEX Hydralazine HCl (Apresoline) 10 mg PO Q8HR [facility] Hydralazine HCl (Apresoline) 10 mg IV Q4HR PRN PRN Reason: BP >160/100 Sodium Chloride (Nacl 0.9%) 100 mls @ 999 mls/hr IV PAULA PRN PRN Reason: Hypotension Nicotine (Habitrol) 21 mg TD DAILY [facility] Ondansetron HCl (Zofran) 4 mg IV Q8H PRN PRN Reason: N/V unrelieved by Reglan Oxycodone/Acetaminophen (Percocet 5/325) 1 tab PO QHS PRN PRN Reason: Pain Last Admin: 05/02/17 07:56 Dose: 1 tab Triamcinolone Acetonide (Kenalog) 1 applic TP BID [facility] Review of Systems Constitutional: no weight loss, no weight gain, no anorexia, no poor appetite Ears, nose, mouth and throat: no epistaxis Breasts: deferred Cardiovascular: orthopnea, shortness of breath, dyspnea on exertion, high blood pressure, no chest pain, no edema, no syncope, no lightheadedness, no leg edema Respiratory: cough, no hemoptysis Gastrointestinal: no abdominal pain, no nausea, no vomiting, no diarrhea Genitourinary Female: no hematuria Rectal: no bleeding Musculoskeletal: no hot joints, no muscle weakness Integumentary: no rash, no wounds, no jaundice Neurological: no paralysis, no weakness, no syncope Psychiatric: no disorientation Endocrine: no weight change Hematologic/Lymphatic: no easy bleeding Exam - Vital Signs Vital signs: Vital Signs Pulse Ox 98 05/01/17 22:42 - General Appearance General appearance: well-developed, appears stated age, other (not in distress) EENT: ATNC, PERRL, vision intact, hearing diminished Neck: Present: neck supple, trachea midline Respiratory: Rales Heart: regular, S1S2, no murmurs Gastrointestinal: Present: normoactive bowel sounds. Absent: tenderness, distended Integumentary: no rash, warm and dry Neurologic: no focal deficit, no asterixis, alert and oriented x3 Musculoskeletal: Present: other (no edema, left arm AVF) Psychiatric: mood/affect appropriate, cooperative Results - Lab Results 05/01/17 22:48 05/01/17 22:48 Most recent lab results Calcium 8.4 mg/dL (8.4-10.2) 05/01/17 22:48 Assessment and Plan 1. Hyperkalemia: S/p urgent hemodialysis. 2. Volume overload / Pulmonary edema: Secondary to missed hemodialysis. Symptoms have improved after hemodialysis with 3Lts of fluid removal. 3. ESRD: Continue hemodialysis three times a week. 4. Anemia: Epogen. 5. Hypertension: BP well controlled.
[2017-05-02] MEDS ORDERED: BENADRYL IV ONE (08:39)
--- NOTE | 2017-05-02 08:42 | Progress Note ---
<CLAIRE CHRISTENSEN - Last Filed: 05/02/17 13:23> Assessment and Plan Assessment and plan: Patient is a 51 female with past medical history of ESRD on dialysis, heart failure, hypertension, known to have poor compliance with meds and HD. She presents due to she missed her dialysis,presented for shortness of breath, orthopnea and dyspnea on exertion. Acute respiratory failure with hypoxia due to fluid overload/missed HD Patient oxygen saturation improved with 2LNC; currently SPO2 98%. No acute respiratory distress noted. Aggressive Nebulizers/Inhalers ABG when necessary Oxygen supplement Supportive care Acute pulmonary edema/secondary to fluid overload/due to missed hemodialysis She had hemodialysis this morning Nephrology following End-stage renal disease on dialysis Nephrology following Hyperkalemia Patient had dialysis today that will correct it. Closely monitor electrolytes. Hypertensive urgency Continue home antihypertensive medications Closely monitor blood pressure Chronic anemia H&H stable for patient at this point; no blood transfusions needed Closely monitor H&H Abnormal CXR Abnormal left midlung opacity" CT chest w/o contrast unremarkable Medical noncompliance; Counseling done Hypertension; Resume home antihypertensives, IV hydralazine when necessary Ongoing tobacco use Smoking cessation counseling done, Patients advised to quit. DVT prophylaxis SCDs patient allergic to heparin. History Interval history: Patient complains bilateral hand cramps. labs and nursing notes reviewed. Hospitalist Physical - Constitutional Vitals: Temp Pulse Resp BP Pulse Ox 97.7 F 67 18 110/48 95 05/02/17 06:29 05/02/17 06:29 05/02/17 06:29 05/02/17 06:29 05/02/17 03:30 General appearance: Present: mild distress, well-nourished - EENT Eyes: Present: PERRL ENT: hearing intact - Neck Neck: Present: supple - Respiratory Respiratory effort: normal Respiratory: bilateral: CTA - Cardiovascular Rhythm: regular Heart Sounds: Present: S1 & S2 - Abdominal General gastrointestinal: soft, non-tender - Integumentary Integumentary: Present: clear, warm, dry - Psychiatric Psychiatric: other (anxious) - Neurologic Neurologic: CNII-XII intact - Allied Health Allied health notes reviewed: nursing Results - Labs CBC & Chem 7: 05/01/17 22:48 05/01/17 22:48 Labs: Laboratory Last Values WBC 9.3 K/mm3 (4.5-11.0) 05/01/17 22:48 RBC 3.08 M/mm3 (3.65-5.03) L 05/01/17 22:48 Hgb 8.8 gm/dl (10.1-14.3) L 05/01/17 22:48 Hct 28.6 % (30.3-42.9) L 05/01/17 22:48 MCV 93 fl (79-97) 05/01/17 22:48 MCH 29 pg (28-32) 05/01/17 22:48 MCHC 31 % (30-34) 05/01/17 22:48 RDW 17.0 % (13.2-15.2) H 05/01/17 22:48 Plt Count 250 K/mm3 (140-440) 05/01/17 22:48 Lymph % (Auto) 15.5 % (13.4-35.0) 05/01/17 22:48 [place] % (Auto) 10.0 % (0.0-7.3) H 05/01/17 22:48 Eos % (Auto) 3.1 % (0.0-4.3) 05/01/17 22:48 Baso % (Auto) 0.6 % (0.0-1.8) 05/01/17 22:48 Lymph # 1.4 K/mm3 (1.2-5.4) 05/01/17 22:48 [place] # 0.9 K/mm3 (0.0-0.8) H 05/01/17 22:48 Eos # 0.3 K/mm3 (0.0-0.4) 05/01/17 22:48 Baso # 0.1 K/mm3 (0.0-0.1) 05/01/17 22:48 Seg Neutrophils % 70.8 % (40.0-70.0) H 05/01/17 22:48 Seg Neutrophils # 6.6 K/mm3 (1.8-7.7) 05/01/17 22:48 Sodium 137 mmol/L (137-145) 05/01/17 22:48 Potassium 6.9 mmol/L (3.6-5.0) H* 05/01/17 22:48 Chloride 96.8 mmol/L (98-107) L 05/01/17 22:48 Carbon Dioxide 20 mmol/L (22-30) L 05/01/17 22:48 Anion Gap 27 mmol/L 05/01/17 22:48 BUN 81 mg/dL (7-17) H 05/01/17 22:48 Creatinine 9.0 mg/dL (0.7-1.2) H 05/01/17 22:48 Estimated GFR 6 ml/min 05/01/17 22:48 BUN/Creatinine Ratio 9 % 05/01/17 22:48 Glucose 91 mg/dL (65-100) 05/01/17 22:48 Calcium 8.4 mg/dL (8.4-10.2) 05/01/17 22:48 Troponin T 0.088 ng/mL (0.00-0.029) H 05/01/17 22:48 Triglycerides 93 mg/dL (2-149) 05/01/17 22:48 Cholesterol 179 mg/dL (50-199) 05/01/17 22:48 LDL Cholesterol Direct 83 mg/dL (50-130) 05/01/17 22:48 HDL Cholesterol 78 mg/dL (40-59) H 05/01/17 22:48 Cholesterol/HDL Ratio 2.29 % 05/01/17 22:48 <QUENTIN LAWS - Last Filed: 05/03/17 14:07> Assessment and Plan Assessment and plan: I saw and evaluated the patient. I agree with the findings and the plan of care as documented in the Nurse Practitioner's~note, with the following corrections and additions. Hospitalist Physical - Constitutional Vitals: Temp Pulse Resp BP Pulse Ox 97.8 F 88 18 142/83 93 05/03/17 10:55 05/03/17 13:15 05/03/17 10:55 05/03/17 13:15 05/03/17 09:47 Results - Labs CBC & Chem 7: 05/03/17 05:11 05/03/17 05:11 Labs: Laboratory Last Values WBC 8.0 K/mm3 (4.5-11.0) 05/03/17 05:11 RBC 2.80 M/mm3 (3.65-5.03) L 05/03/17 05:11 Hgb 8.2 gm/dl (10.1-14.3) L 05/03/17 05:11 Hct 25.8 % (30.3-42.9) L 05/03/17 05:11 MCV 92 fl (79-97) 05/03/17 05:11 MCH 29 pg (28-32) 05/03/17 05:11 MCHC 32 % (30-34) 05/03/17 05:11 RDW 16.7 % (13.2-15.2) H 05/03/17 05:11 Plt Count 218 K/mm3 (140-440) 05/03/17 05:11 Lymph % (Auto) 15.5 % (13.4-35.0) 05/01/17 22:48 [place] % (Auto) 10.0 % (0.0-7.3) H 05/01/17 22:48 Eos % (Auto) 3.1 % (0.0-4.3) 05/01/17 22:48 Baso % (Auto) 0.6 % (0.0-1.8) 05/01/17 22:48 Lymph # 1.4 K/mm3 (1.2-5.4) 05/01/17 22:48 [place] # 0.9 K/mm3 (0.0-0.8) H 05/01/17 22:48 Eos # 0.3 K/mm3 (0.0-0.4) 05/01/17 22:48 Baso # 0.1 K/mm3 (0.0-0.1) 05/01/17 22:48 Seg Neutrophils % 70.8 % (40.0-70.0) H 05/01/17 22:48 Seg Neutrophils # 6.6 K/mm3 (1.8-7.7) 05/01/17 22:48 Sodium 136 mmol/L (137-145) L 05/03/17 05:11 Potassium 5.0 mmol/L (3.6-5.0) 05/03/17 05:11 Chloride 94.1 mmol/L (98-107) L 05/03/17 05:11 Carbon Dioxide 23 mmol/L (22-30) 05/03/17 05:11 Anion Gap 24 mmol/L 05/03/17 05:11 BUN 66 mg/dL (7-17) H 05/03/17 05:11 Creatinine 7.6 mg/dL (0.7-1.2) H 05/03/17 05:11 Estimated GFR 7 ml/min 05/03/17 05:11 BUN/Creatinine Ratio 9 % 05/03/17 05:11 Glucose 86 mg/dL (65-100) 05/03/17 05:11 Calcium 8.6 mg/dL (8.4-10.2) 05/03/17 05:11 Total Creatine Kinase 79 units/L (30-135) 05/02/17 17:39 CK-MB (CK-2) 4.0 ng/mL (0.0-4.0) 05/02/17 17:39 CK-MB (CK-2) Rel Index 5.0 (0-4) H 05/02/17 17:39 Troponin T 0.091 ng/mL (0.00-0.029) H 05/02/17 17:39 Triglycerides 93 mg/dL (2-149) 05/01/17 22:48 Cholesterol 179 mg/dL (50-199) 05/01/17 22:48 LDL Cholesterol Direct 83 mg/dL (50-130) 05/01/17 22:48 HDL Cholesterol 78 mg/dL (40-59) H 05/01/17 22:48 Cholesterol/HDL Ratio 2.29 % 05/01/17 22:48
[2017-05-02] MEDS ORDERED: CINACALCET HCL PO SCH (10:00)
[2017-05-02] MEDS: SENSIPAR PO SCH (10:22)
[2017-05-02] MEDS: PEPCID PO SCH ×2 (10:22→22:05)
[2017-05-02] MEDS: KENALOG TP SCH ×2 (10:22→22:07)
[2017-05-02] MEDS: COREG PO SCH ×2 (10:23→22:05)
[2017-05-02] MEDS: HABITROL TD SCH (10:32)
[2017-05-02] MEDS: APRESOLINE PO SCH ×3 (10:34→22:06)
[2017-05-02] MEDS ORDERED: BENADRYL PO PRN (10:51)
--- NOTE | 2017-05-02 12:30 | Event Note ---
Date: 05/02/17 Patient is examined in no acute distress appears mildly uncomfortable due to pruritus. Requesting from Benadryl she takes between 25 TO 100 mg at home. Side effects cautioned and advised. We'll start 50 mg every 6 hours when necessary for pruritus. Continue current treatment repeat BMP to ensure improvement of potassium. Despite discharge in a.m.
[2017-05-02 16:29] LABS: Calcium 8.1 mg/dL (8.4-10.2); Chloride 92.2 mmol/L (98-107)
[2017-05-03 06:13] LABS: Hematocrit 25.8 % (30.3-42.9); Hemoglobin 8.2 gm/dl (10.1-14.3); Mean Corpuscular HGB Conc 32 % (30-34); Mean Corpuscular Hemoglobin 29 pg (28-32); Mean Corpuscular Volume 92 fl (79-97); Platelet Count 218 K/mm3 (140-440); Red Cell Distribution Width 16.7 % (13.2-15.2)
[2017-05-03 06:31] LABS: Calcium 8.6 mg/dL (8.4-10.2); Chloride 94.1 mmol/L (98-107)
[2017-05-03] MEDS: APRESOLINE PO SCH (07:42)
--- NOTE | 2017-05-03 08:24 | Progress Note ---
Assessment and Plan 1. ESRD: Continue hemodialysis three times a week. HD today. 2. Hyperkalemia: Improved after hemodialysis. 3. Volume overload / Pulmonary edema: Secondary to missed hemodialysis. Symptoms have improved after UF with hemodialysis. 4. Anemia: Epogen. 5. Hypertension: BP well controlled. Subjective Date of service: 05/03/17 Interval history: Patient doing ok. Objective - Vital Signs Vital signs: Vital Signs - 12hr 05/02/17 05/02/17 05/02/17 22:00 22:05 22:06 Pulse Rate 90 90 Respiratory 20 Rate [Back] Blood Pressure 128/72 128/72 05/03/17 07:42 Pulse Rate 94 H Respiratory Rate [Back] Blood Pressure 146/82 - General Appearance General appearance: well-developed, appears stated age, other (no distress) EENT: ATNC, PERRL, hearing intact, vision intact Neck: supple Respiratory: Present: Clear to Ascultation Cardiology: regular, S1S2, no murmurs Gastrointestinal: normoactive bowel sounds, no tenderness, no distended Integumentary: no rash Neurologic: no focal deficit, no asterixis, alert and oriented x3 Musculoskeletal: other (no edema, left arm AVF) Psychiatric: mood/affect appropriate, cooperative - Lab 05/03/17 05:11 05/03/17 05:11 Most recent lab results Calcium 8.6 mg/dL (8.4-10.2) 05/03/17 05:11
[2017-05-03] MEDS: HABITROL TD SCH (09:30)
[2017-05-03] MEDS: PEPCID PO SCH (09:30)
[2017-05-03] MEDS: SENSIPAR PO SCH (09:30)
[2017-05-03] MEDS: COREG PO SCH (09:30)
[2017-05-03] MEDS: KENALOG TP SCH (09:30)
[2017-05-03] MEDS ORDERED: NORVASC PO SCH (10:00)
[2017-05-03] MEDS ORDERED: ZESTRIL PO SCH (10:00)
--- NOTE | 2017-05-03 10:45 | Consultation ---
History of Present Illness Consult date: 05/03/17 Requesting physician: CLAIRE CHRISTENSEN Consult reason: elevated troponin History of present illness: The pt is a 51 YO female with a past medical history significant for dilated CMP (presumably nonischemic given no ischemia on recent stress test; EF 15-20%) , ESRD on HD (MWF), HTN, and tobacco use (1/2 PPD x 20 years). She is previously unknown to our practice. 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 She presented with c/o shortness of breath for 2 days [employer]. She states that she missed her dialysis once due to transportation issues before she noted the onset of her symptoms. She also c/o some intermittent misternal chest tightness which began after her SOB. Following admission, chest CT showed bilateral pulmonary edema. On evaluation, she reports that her symptoms have resolved since she received HD. She is scheduled to undergo HD again today. Echo done 04/01/2017 showed EF 15-20%, LV severely dilated, mod LVH, LA mod to severely dilated, mild to mod MR, mild with mean AV gradient of 13mmHg, mild AR, mild TR. Stress MPI done 04/04/2017 showed no ischemia, LV severely dilated, EF 24%, evidence of severe dilated CMP. Past History Past Medical History: dialysis, ESRD, heart failure, hypertension, other Past Surgical History: Other (AV graft) Social history: lives with family, smoking (currently, 0.5 ppd for decades). denies: alcohol abuse, prescription drug abuse Family history: hypertension Medications and Allergies Allergies Allergy/AdvReac Type Severity Reaction Status Date / Time heparin Allergy Itching Verified 05/02/17 00:12 Home Medications Medication Instructions Recorded Confirmed Last Taken Type Cinacalcet HCl [Sensipar] 60 mg PO DAILY 03/31/17 05/02/17 03/30/17 History Carvedilol [Coreg] 6.25 mg PO BID #60 tablet 04/05/17 05/02/17 Unknown Rx hydrALAZINE [Apresoline TAB] 10 mg PO Q8H #60 tablet 04/05/17 05/02/17 Unknown Rx Lisinopril [Zestril TAB] 40 mg PO QDAY 05/02/17 05/02/17 Unknown History amLODIPine [Norvasc] 10 mg PO DAILY 05/02/17 05/02/17 Unknown History Active Meds: Active Medications Acetaminophen (Tylenol) 650 mg PO Q4H PRN PRN Reason: Pain MILD(1-3)/Fever >100.5/HERNANDEZ Amlodipine Besylate (Norvasc) 10 mg PO DAILY [facility] Bisacodyl (Dulcolax) 10 mg [place] QDAY PRN PRN Reason: Constipation unrelieved by MOM Carvedilol (Coreg) 6.25 mg PO BID [facility] Last Admin: 05/02/17 22:05 Dose: 6.25 mg Cinacalcet (Sensipar) 120 mg PO QDAY [facility] Last Admin: 05/02/17 10:22 Dose: 120 mg Diphenhydramine HCl (Benadryl) 50 mg PO Q6H PRN PRN Reason: Itching Last Admin: 05/02/17 22:06 Dose: 50 mg Epoetin Han (Procrit) 10,000 unit SUB-Q ONCE ONE Stop: 05/03/17 12:01 Famotidine (Pepcid) 10 mg PO BID [facility] Last Admin: 05/02/17 22:05 Dose: 10 mg Hydralazine HCl (Apresoline) 10 mg PO Q8HR [facility] Last Admin: 05/03/17 07:42 Dose: 10 mg Hydralazine HCl (Apresoline) 10 mg IV Q4HR PRN PRN Reason: BP >160/100 Sodium Chloride (Nacl 0.9%) 100 mls @ 999 mls/hr IV PAULA PRN PRN Reason: Hypotension Lisinopril (Zestril) 40 mg PO QDAY [facility] Nicotine (Habitrol) 21 mg TD DAILY [facility] Last Admin: 05/02/17 10:32 Dose: 21 mg Ondansetron HCl (Zofran) 4 mg IV Q8H PRN PRN Reason: N/V unrelieved by Reglan Oxycodone/Acetaminophen (Percocet 5/325) 1 tab PO QHS PRN PRN Reason: Pain Last Admin: 05/02/17 07:56 Dose: 1 tab Sevelamer Carbonate (Renvela) 2,400 mg PO AC [facility] Triamcinolone Acetonide (Kenalog) 1 applic TP BID [facility] Last Admin: 05/02/17 22:07 Dose: 1 applic Review of Systems Constitutional: no weight loss, no weight gain, no fever, no chills, no sweats Ears, nose, mouth and throat: no ear pain, no nose pain Cardiovascular: chest pain, shortness of breath, dyspnea on exertion, high blood pressure, no orthopnea, no palpitations, no rapid/irregular heart beat, no edema, no syncope, no lightheadedness, no paroxysmal nocturnal dyspnea Respiratory: shortness of breath, dyspnea on exertion, no cough, no congestion, no wheezing, no pain on inspiration Gastrointestinal: no abdominal pain, no nausea, no vomiting, no diarrhea, no constipation, no change in bowel habits Genitourinary Female: no pelvic pain, no flank pain, no dysuria, no urinary frequency, no urgency Musculoskeletal: no neck stiffness, no neck pain Integumentary: no rash, no pruritis, no redness, no sores, no wounds Neurological: no head injury, no paralysis, no weakness, no parathesias, no numbness, no tingling, no seizures, no syncope Psychiatric: no anxiety Endocrine: no cold intolerance, no heat intolerance Hematologic/Lymphatic: no easy bruising, no easy bleeding Allergic/Immunologic: no urticaria, no persistent infections Physical Examination Vital Signs Pulse Ox 98 05/01/17 22:42 General appearance: no acute distress HEENT: Positive: PERRL, Normocephaly, Mucus Membranes Moist Neck: Positive: neck supple, trachea midline Cardiac: Positive: Reg Rate and Rhythm, S1/S2, Systolic Murmur Lungs: Positive: Decreased Breath Sounds, Rales (bilateral) Neuro: Positive: Grossly Intact Abdomen: Positive: Unremarkable, Soft, Active Bowel Sounds. Negative: Tender Skin: Positive: Clear. Negative: Rash, Wound Musculoskeletal: No Pain, Normal Range of Motion Extremities: Absent: edema (trace BUE swelling) Results 05/03/17 05:11 05/03/17 05:11 Cardiac Enzymes 05/02/17 Range/Units 17:39 CK-MB (CK-2) 4.0 (0.0-4.0) ng/mL CBC 05/03/17 Range/Units 05:11 WBC 8.0 (4.5-11.0) K/mm3 RBC 2.80 L (3.65-5.03) M/mm3 Hgb 8.2 L (10.1-14.3) gm/dl Hct 25.8 L (30.3-42.9) % Plt Count 218 (140-440) K/mm3 Comprehensive Metabolic Panel 05/02/17 05/03/17 Range/Units 13:45 05:11 Sodium 136 L 136 L (137-145) mmol/L Potassium 5.0 D 5.0 (3.6-5.0) mmol/L Chloride 92.2 L 94.1 L (98-107) mmol/L Carbon Dioxide 23 23 (22-30) mmol/L BUN 48 H 66 H (7-17) mg/dL Creatinine 6.5 H 7.6 H (0.7-1.2) mg/dL Glucose 109 H 86 (65-100) mg/dL Calcium 8.1 L 8.6 (8.4-10.2) mg/dL - Imaging and Cardiology Echo: report reviewed (04/01/2017 showed EF 15-20%, LV severely dilated, mod LVH , LA mod to severely dilated, mild to mod MR, mild with mean AV gradient of 13mmHg, mild AR, mild TR.) EKG: report reviewed, image reviewed EKG interpretations - Telemetry EKG Rhythm: Sinus Rhythm - EKG Sinus rhythms and dysrhythmias: sinus rhythm Chamber hypertrophy or enlargement: left ventricular hypertro Repolarization changes or abnormalities: repolarization abn secondary to ventricular hypertrophy Assessment and Plan Assessment: Acute systolic heart failure Dilated Cardiomyopathy - EF 15-20% on echocardiogram; No ischemia on MPI ESRD on HD Hyperkalemia - improved Anemia Chest pain, atypical - currently resolved Elevated troponin - EKG with no acute ischemic changes; flat and improved from prior hospitalization; currently nonspecific in setting of ESRD, anemia and acutely decompensated HF. Hypertension Plan: Agree with current medical management, including coreg and lisinopril. Continue volume optimization and electrolyte management per nephrology. No indication for repeat ischemic evaluation or echo at this time. Assessment and plan reviewed with pt at bedside. The patient has been seen in conjunction with Dr. Monzon who agrees with the assessment and plan of care.
[2017-05-03] MEDS ORDERED: RENVELA PO SCH (11:30)
[2017-05-03] MEDS ORDERED: PROCRIT SUB-Q ONE (12:00)
[2017-05-03] MEDS ORDERED: NACL 0.9 (PRIMING MACHINE ONLY DIALYSIS) MC ONE (12:15)
--- NOTE | 2017-05-03 14:09 | Event Note ---
Date: 05/03/17 Patient seen and examined, Doing well this am. Counselling provided again on compliance and should be discharged today following dialysis. Potassium corrected.
--- NOTE | 2017-05-03 15:24 | Discharge Summary ---
<CLAIRE CHRISTENSEN - Last Filed: 05/11/17 08:28> Providers - Providers Date of Admission: 05/02/17 00:15 Date of discharge: 05/03/17 Attending physician: QUENTIN LAWS MD 05/01/17 23:47 Consult to Physician [CONS] Stat Consulting Provider: RANDELL KELLY Reason For Exam: acute hyperkalemia, emergency dialysis Notified:: yes 05/02/17 13:07 Consult to Physician [CONS] Routine Consulting Provider: BRODIE SWANSON Reason For Exam: elevated troponin Place consult to:: nighat Swanson Notified:: Answering service Phone number called:: yes Was contact made?: Yes If yes, spoke with:: Dr. Walden Time called:: 17:22 Primary care physician: DIANNA FONTENOT Hospitalization Reason for admission: missed her dialysis, Condition: Stable Hospital course: Patient is a 51 female with past medical history of ESRD on dialysis, heart failure, hypertension, known to have poor compliance with meds and HD. She presents due to she missed her dialysis,presented for shortness of breath, orthopnea and dyspnea on exertion. Patient was diagnosed with Acute respiratory failure with hypoxia due to fluid overload/missed HD, Acute pulmonary edema/secondary to fluid overload/due to missed hemodialysis, End- stage renal disease on dialysis, Hyperkalemia, Hypertensive urgency, Chronic anemia,Abnormal CXR, Medical noncompliance, Hypertension and Ongoing tobacco use. CXR abnormal left midlung opacity but done CT chest w/o contrast which is unremarkable. Patient is noncompliance with renal dialysis. She received emergent dialysis, during which excess fluid was removed, and her hyperkalemia corrected with HD, she was restarted on the rest of her meds, which she had been poorly compliant with which included BP meds. she was counseled about non compliance and she agreed that she has to make better arrangements in her personal life so that she can continue her HD and that she would start taking her meds faithfully. Discharge diagnosed Acute respiratory failure with hypoxia due to fluid overload/missed HD Acute pulmonary edema/secondary to fluid overload/due to missed hemodialysis End-stage renal disease on dialysis Hyperkalemia Hypertensive urgency Chronic anemia Abnormal CXR Medical noncompliance Hypertension Tobacco abuse Disposition: TO HOME OR SELFCARE Time spent for discharge: 35 minutes Core Measure Documentation - Palliative Care Palliative Care/ Comfort Measures: Not Applicable - Core Measures Any of the following diagnoses?: none Exam - Constitutional Vitals: Temp Pulse Resp BP Pulse Ox 97.8 F 88 18 142/83 93 05/03/17 10:55 05/03/17 13:15 05/03/17 10:55 05/03/17 13:15 05/03/17 09:47 General appearance: Present: no acute distress - EENT ENT: hearing intact - Neck Neck: Present: supple - Respiratory Respiratory effort: normal Respiratory: bilateral: CTA - Cardiovascular Rhythm: regular Heart Sounds: Present: S1 & S2 - Abdominal General gastrointestinal: Present: soft, non-tender Female genitourinary: Present: deferred - Rectal Rectal Exam: deferred - Integumentary Integumentary: Present: clear, warm, dry - Musculoskeletal Musculoskeletal: strength equal bilaterally - Psychiatric Psychiatric: appropriate mood/affect - Neurologic Neurologic: moves all extremities - Allied Health Allied health notes reviewed: nursing Plan Diet: low fat, low cholesterol, renal Follow up with: DIANNA FONTENOT MD [Primary Care Provider] - 3-5 Days <QUENTIN LAWS - Last Filed: 05/15/17 07:01> Providers - Providers Date of Admission: 05/02/17 00:15 Attending physician: QUENTIN LAWS MD 05/01/17 23:47 Consult to Physician [CONS] Stat Consulting Provider: RANDELL KELLY Reason For Exam: acute hyperkalemia, emergency dialysis Notified:: yes 05/02/17 13:07 Consult to Physician [CONS] Routine Consulting Provider: BRODIE SWANSON Reason For Exam: elevated troponin Place consult to:: nighat Swanson Notified:: Answering service Phone number called:: yes Was contact made?: Yes If yes, spoke with:: Dr. Walden Time called:: 17:22 Primary care physician: DIANNA FONTENOT Hospitalization Hospital course: I saw and evaluated the patient. I agree with the findings and the plan of care as documented in the Nurse Practitioner's~note, with the following corrections and additions. Exam - Constitutional Vitals: Temp Pulse Resp BP Pulse Ox 98.5 F 101 H 20 156/88 97 05/03/17 15:00 05/03/17 15:00 05/03/17 15:00 05/03/17 15:00 05/03/17 15:00
[2017-05-03 16:15] VITALS: BP 156/88
== END 2017-05-03 16:55 | disposition home or self-care (01) | DRG 280 ==
LOC: ED 22:35 → 3A 05-02 00:15
PROVIDERS: ADMIT Internal Medicine; ATTEND Internal Medicine
PROC: 5A1D70Z Performance of Urinary Filtration, Intermittent, Less than 6 Hours Per Day (ICD-10-PCS; principal; 2017-05-02)
PROC: 5A09357 Assistance with Respiratory Ventilation, Less than 24 Consecutive Hours, Continuous Positive Airway Pressure (ICD-10-PCS; 2017-05-02)
PROC: 5A1D70Z Performance of Urinary Filtration, Intermittent, Less than 6 Hours Per Day (ICD-10-PCS; 2017-05-03)
DX: I13.2 Hypertensive heart and chronic kidney disease with heart failure and with stage 5 chronic kidney disease, or end stage renal disease (principal); N18.6 End stage renal disease; I21.A1 Myocardial infarction type 2; J96.01 Acute respiratory failure with hypoxia; J81.0 Acute pulmonary edema; I50.23 Acute on chronic systolic (congestive) heart failure; I42.0 Dilated cardiomyopathy; E87.70 Fluid overload, unspecified; I16.0 Hypertensive urgency; D64.9 Anemia, unspecified; J44.9 Chronic obstructive pulmonary disease, unspecified; F17.210 Nicotine dependence, cigarettes, uncomplicated; E87.5 Hyperkalemia; Z91.14 Patient's other noncompliance with medication regimen; Z90.710 Acquired absence of both cervix and uterus; Z79.899 Other long term (current) drug therapy; Z71.89 Other specified counseling; Z71.6 Tobacco abuse counseling
CPT/HCPCS: 36415; 71010; 71250; 80048; 80061; 82550; 82553; 84484; 85025; 85027; 93005; 93010; 94760; 96365; 96375; 99291; 99406; J0610; J0885; J1200; J1815; J2930; J7030

== ENCOUNTER 2017-05-09 16:26 | Inpatient (IN) | payer MEDICARE ==
[2017-05-09] MEDS ORDERED: TRIDIL DRIP 50MG/250ML 50 MG/250 ML BOTTLE ONE (16:38)
[2017-05-09] MEDS ORDERED: SUBLIMAZE ONE (16:39)
--- NOTE | 2017-05-09 16:39 | Emergency Department Report ---
ED General Adult HPI - General Chief complaint: Dyspnea/Respdistress Stated complaint: CHEST PAIN Time Seen by Provider: 05/09/17 16:30 Source: patient, family, EMS (ems notes not available at time of chart dictation), RN notes reviewed, old records reviewed Mode of arrival: Stretcher Limitations: Physical Limitation - History of Present Illness Initial comments: This is a 51-year-old female. 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 Last dialyzed on Monday., With shortness of breath, chest tightness, back pain, abdominal cramping and extremity cramping. Her symptoms have present since 10:00 last night. They're constant. Worse with physical exertion, decreased with rest, and with hemodialysis. Of note, I have evaluated this patient a few times in the past for similar issues and complaints. On arrival to the ER, the patient was tachypneic, had crackles, rales and rhonchi. She is started empirically on a nitroglycerin drip, as well as BiPAP therapy. Laboratory studies indicated metabolic acidosis, potassium of 6.9, O2 sats and a chronically elevated troponin which is most likely secondary to her underlying renal insufficiency, and her EKG today appears to be morphologically unchanged from her prior EKG. Her intervals on EKG appeared to be appropriate at this time, so I will withhold calcium therapy, but she will be given the potassium cocktail, including albuterol, insulin, dextrose and sodium bicarbonate. I will withhold Kayexalate orally at this time, as the patient is going and BiPAP therapy. Case was presented to the Hospital physician, Dr. Lara, he accepts the patient to the medical service, case presented to covering gasoline truck operator, Dr. Tenorio; he is going to arrange dialysis. -: Gradual Location: chest, back, left, right, lower extremity Quality: aching Consistency: constant Improves with: medication, rest Worsens with: movement Associated Symptoms: chest pain, cough, loss of appetite, malaise, shortness of breath, weakness. denies: confusion - Related Data Home Medications Medication Instructions Recorded Confirmed Last Taken Cinacalcet HCl [Sensipar] 60 mg PO DAILY 03/31/17 05/09/17 03/30/17 Lisinopril [Zestril TAB] 40 mg PO QDAY 05/02/17 05/09/17 Unknown amLODIPine [Norvasc] 10 mg PO DAILY 05/02/17 05/09/17 Unknown Ranitidine HCl [Zantac 150 MG TAB] 150 mg PO BID 05/09/17 05/09/17 Unknown Previous Rx's Medication Instructions Recorded Last Taken Type Carvedilol [Coreg] 6.25 mg PO BID #60 tablet 04/05/17 Unknown Rx hydrALAZINE [Apresoline TAB] 10 mg PO Q8H #60 tablet 04/05/17 Unknown Rx Sevelamer Carbonate [Renvela] 2,400 mg PO AC tablet 05/03/17 Unknown Rx Allergies Allergy/AdvReac Type Severity Reaction Status Date / Time heparin Allergy Itching Verified 05/02/17 00:12 ED Review of Systems ROS: Stated complaint: CHEST PAIN Other details as noted in HPI Constitutional: malaise, weakness. denies: fever Eyes: denies: vision change ENT: denies: epistaxis Respiratory: shortness of breath Cardiovascular: chest pain Gastrointestinal: abdominal pain Genitourinary: as per HPI Musculoskeletal: as per HPI, arthralgia, myalgia Neurological: weakness Psychiatric: anxiety ED Past Medical Hx - Past Medical History Hx Hypertension: Yes Hx Congestive Heart Failure: Yes Hx Diabetes: No Hx Renal Disease: Yes (M,W,F) Hx Asthma: No Hx COPD: No Hx HIV: No - Surgical History Additional Surgical History: hysterectomy. bowel obstruction - Social History Smoking Status: Current Every Day Smoker - Medications Home Medications: Home Medications Medication Instructions Recorded Confirmed Last Taken Type Cinacalcet HCl [Sensipar] 60 mg PO DAILY 03/31/17 05/09/17 03/30/17 History Carvedilol [Coreg] 6.25 mg PO BID #60 tablet 04/05/17 05/09/17 Unknown Rx hydrALAZINE [Apresoline TAB] 10 mg PO Q8H #60 tablet 04/05/17 05/09/17 Unknown Rx Lisinopril [Zestril TAB] 40 mg PO QDAY 05/02/17 05/09/17 Unknown History amLODIPine [Norvasc] 10 mg PO DAILY 05/02/17 05/09/17 Unknown History Sevelamer Carbonate [Renvela] 2,400 mg PO AC tablet 05/03/17 05/09/17 Unknown Rx Ranitidine HCl [Zantac 150 MG TAB] 150 mg PO BID 05/09/17 05/09/17 Unknown History ED Physical Exam - General Limitations: No Limitations General appearance: alert, in distress - Head Head exam: Present: atraumatic, normocephalic - Eye Eye exam: Present: normal appearance, EOMI - ENT ENT exam: Present: normal exam, normal orophraynx, mucous membranes moist - Neck Neck exam: Present: normal inspection, full ROM - Respiratory Respiratory exam: Present: respiratory distress, wheezes, rales, rhonchi - Cardiovascular Cardiovascular Exam: Present: normal rhythm, tachycardia, normal heart sounds. Absent: systolic murmur, diastolic murmur, rubs, gallop - GI/Abdominal GI/Abdominal exam: Present: soft, normal bowel sounds. Absent: distended, tenderness, guarding, rebound, rigid - Extremities Exam Extremities exam: Present: normal inspection, normal capillary refill. Absent: pedal edema, calf tenderness - Back Exam Back exam: Present: normal inspection, full ROM. Absent: tenderness, CVA tenderness (R), paraspinal tenderness, vertebral tenderness - Neurological Exam Neurological exam: Present: alert, oriented X3, CN II-XII intact, other ( Extraocular movements intact. Tongue midline. No facial droop. Facial sensation intact to light touch in the V1, V2, V3 distribution bilaterally. 5 and 5 strength in 4 extremities.. Sensation is intact to light touch in 4 extremities.). Absent: motor sensory deficit - Psychiatric Psychiatric exam: Present: anxious - Skin Skin exam: Present: warm, dry, intact, normal color. Absent: rash ED Course Vital Signs 05/09/17 05/09/17 05/09/17 16:35 16:45 17:00 Temperature 98.1 F Pulse Rate 101 H 102 H 106 H Respiratory 31 H 27 H 24 Rate Blood Pressure 184/96 184/96 Blood Pressure 160/102 [Right] O2 Sat by Pulse 96 97 97 Oximetry 05/09/17 05/09/17 05/09/17 17:24 17:31 17:45 Temperature Pulse Rate 94 H 101 H 101 H Respiratory 31 H 33 H 22 Rate Blood Pressure 169/97 152/92 Blood Pressure [Right] O2 Sat by Pulse 97 97 98 Oximetry 05/09/17 18:15 Temperature Pulse Rate 105 H Respiratory 26 H Rate Blood Pressure 155/89 Blood Pressure [Right] O2 Sat by Pulse 97 Oximetry ED Medical Decision Making - Lab Data Result diagrams: 05/09/17 16:39 05/09/17 16:39 Vital Signs 05/09/17 05/09/17 05/09/17 16:35 16:45 17:00 Temperature 98.1 F Pulse Rate 101 H 102 H 106 H Respiratory 31 H 27 H 24 Rate Blood Pressure 184/96 184/96 Blood Pressure 160/102 [Right] O2 Sat by Pulse 96 97 97 Oximetry Lab Results 05/09/17 05/09/17 05/09/17 Range/Units 16:39 16:39 16:39 WBC 10.3 (4.5-11.0) K/mm3 RBC 3.04 L (3.65-5.03) M/mm3 Hgb 8.7 L (10.1-14.3) gm/dl Hct 28.2 L (30.3-42.9) % MCV 93 (79-97) fl MCH 29 (28-32) pg MCHC 31 (30-34) % RDW 16.8 H (13.2-15.2) % Plt Count 254 (140-440) K/mm3 Lymph % (Auto) 9.9 L (13.4-35.0) % Gibson % (Auto) 12.2 H (0.0-7.3) % Eos % (Auto) 2.1 (0.0-4.3) % Baso % (Auto) 0.3 (0.0-1.8) % Lymph # 1.0 L (1.2-5.4) K/mm3 Gibson # 1.3 H (0.0-0.8) K/mm3 Eos # 0.2 (0.0-0.4) K/mm3 Baso # 0.0 (0.0-0.1) K/mm3 Seg Neutrophils % 75.5 H (40.0-70.0) % Seg Neutrophils # 7.7 (1.8-7.7) K/mm3 PT 13.9 (12.2-14.9) Sec. INR 1.02 (0.87-1.13) APTT 37.7 H (24.2-36.6) Sec. Sodium 136 L (137-145) mmol/L Potassium 6.8 H* (3.6-5.0) mmol/L Chloride 91.5 L (98-107) mmol/L Carbon Dioxide 19 L (22-30) mmol/L Anion Gap 32 mmol/L BUN 78 H (7-17) mg/dL Creatinine 8.0 H (0.7-1.2) mg/dL Estimated GFR 6 ml/min BUN/Creatinine Ratio 10 % Glucose 80 (65-100) mg/dL Calcium 9.0 (8.4-10.2) mg/dL Magnesium 3.10 H (1.7-2.3) mg/dL Total Bilirubin 0.40 (0.1-1.2) mg/dL AST 15 (5-40) units/L ALT 15 (7-56) units/L Alkaline Phosphatase 173 H (35-129) units/L Troponin T 0.124 H* (0.00-0.029) ng/mL Total Protein 8.5 H (6.3-8.2) g/dL Albumin 4.2 (3.9-5) g/dL Albumin/Globulin Ratio 1.0 % Triglycerides 67 (2-149) mg/dL Cholesterol 206 H (50-199) mg/dL LDL Cholesterol Direct 98 (50-130) mg/dL HDL Cholesterol 95 H (40-59) mg/dL Cholesterol/HDL Ratio 2.16 % - EKG Data -: EKG Interpreted by Me EKG shows normal: sinus rhythm Rate: normal - EKG Data Interpretation: unchanged when compared t 05/09/17 17:44 Normal sinus, 98 which per minute, left axis deviation, left anterior fascicular block, T-wave inversions in the lateral leads, peak T waves, P waves , QTC prolonged, NJ interval prolonged, abnormal EKG, not morphologically consistent with ST elevation myocardial infarction, this EKG appears to be unchanged from prior, there is some motion artifact as well. - Radiology Data Radiology results: pending, report reviewed, image reviewed interpreted by me: X-ray of the chest, interpreted by myself, cardiomegaly, pulmonary vascular congestion, left hemithorax opacification port Referring Physician: YOVANNY MOHAN Patient Name: JANUSZ YOUNG Date of : 1965 Sex: Female Report Date: 2017-05-02 Report Status: Finalized Findings [facility] [address] [place] [address] Cat Scan Report Signed Patient: JANUSZ YOUNG MR#: [id number] : 1965 Acct:[id number] Age/Sex: 51 / F ADM Date: 05/02/17 Loc: 3A A357-[address]: YOVANNY MOHAN MD Ordering Physician: YOVANNY MOHNA MD Date of Service: 05/02/17 Procedure(s): CT chest wo con Accession Number(s): [id number] cc: YOVANNY MOHAN MD FINAL REPORT PROCEDURE: CT CHEST WO CON TECHNIQUE: Computerized axial tomography of the chest was performed without contrast material. This study is performed without intravenous contrast and the sensitivity for pathology, including neoplasms, adenopathy, abscess, pulmonary embolism and aortic dissection, is reduced. HISTORY: Abnormal left midlung opacity COMPARISON: Chest x-ray 05/01/2017 TECHNICAL QUALITY: Satisfactory. FINDINGS: Heart and pericardium: Heart is enlarged.. Thoracic aorta: Normal. Pulmonary vasculature: Normal. Lymph nodes: No enlarged thoracic lymph nodes. Lungs: Lungs are well-expanded. There is moderate centrilobular emphysema. There is bilateral perihilar pulmonary edema. There are multiple focal areas of discoid atelectasis in the mid and lower lung zones greater on the left. There is no mass.. Pleural space: No effusion, thickening, or pneumothorax. Musculoskeletal structures: No significant abnormality. Upper abdominal structures: There is generalized sclerosis of the bony structures. This could be due to metabolic bone disease, renal osteodystrophy or metastatic malignancy. Clinical correlation suggested.. IMPRESSION: Heart is enlarged.. Lungs are well-expanded. There is moderate centrilobular emphysema. There is bilateral perihilar pulmonary edema. There are multiple focal areas of discoid atelectasis in the mid and lower lung zones greater on the left. There is no mass.. There is no pleural effusion or pneumothorax. There is generalized sclerosis of the bony structures. This could be due to metabolic bone disease, renal osteodystrophy or metastatic malignancy. Clinical correlation suggested.. . Transcribed By: CO Dictated By: GENA ESPINO MD Electronically Authenticated By: GENA ESPINO MD Signed Date/Time: 05/02/17102 DD/ 2 - Medical Decision Making Differential diagnosis, including when not limited to: COPD, emphysema, end- stage renal disease, congestive heart failure, multifactorial respiratory failure Assessment and plan: 51-year-old female requires urgent dialysis for respiratory failure requiring BiPAP therapy, hyperkalemia, and probable fluid overload, they also have a component of undiagnosed pulmonary hypertension. Her gasoline truck operator is aware, Hospital physician is aware, bed placement is pending at this time. Patient improved on BiPAP and with nitroglycerin drip. Critical Care Time: Yes Critical care time in (mins) excluding proc time.: 35 Critical care attestation.: If time is entered above; I have spent that time in minutes in the direct care of this critically ill patient, excluding procedure time. ED Disposition Clinical Impression: Hypertension, Acute hyperkalemia, ESRD (end stage renal disease) Disposition: OP ADMIT IP TO THIS HOSP Is pt being admited?: Yes Does the pt Need Aspirin: Yes Condition: Good Instructions: Hypertension (ED) Referrals: PRIMARY CARE, [Primary Care Provider] - 3-5 Days
[2017-05-09] MEDS ORDERED: TRIDIL DRIP 50MG/250ML 50 MG/250 ML BOTTLE IV ONE (16:52)
[2017-05-09] MEDS ORDERED: SUBLIMAZE IV ONE ×2 (16:52→17:15)
[2017-05-09 17:01] LABS: Basophils % (Auto) 0.3 % (0.0-1.8); Eosinophils # (Auto) 0.2 K/mm3 (0.0-0.4); Eosinophils % (Auto) 2.1 % (0.0-4.3); Hematocrit 28.2 % (30.3-42.9); Hemoglobin 8.7 gm/dl (10.1-14.3); Lymphocytes % (Auto) 9.9 % (13.4-35.0); Mean Corpuscular HGB Conc 31 % (30-34); Mean Corpuscular Hemoglobin 29 pg (28-32); Mean Corpuscular Volume 93 fl (79-97); Monocytes # (Auto) 1.3 K/mm3 (0.0-0.8); Monocytes % (Auto) 12.2 % (0.0-7.3); Platelet Count 254 K/mm3 (140-440); Red Blood Count 3.04 M/mm3 (3.65-5.03); Red Cell Distribution Width 16.8 % (13.2-15.2)
[2017-05-09 17:12] LABS: INR 1.02 (0.87-1.13)
[2017-05-09 17:13] LABS: Partial Thromboplastin Time 37.7 Sec. (24.2-36.6)
[2017-05-09] MEDS ORDERED: BENADRYL IV ONE (17:15)
[2017-05-09 17:18] LABS: Albumin 4.2 g/dL (3.9-5); Magnesium 3.1 mg/dL (1.7-2.3)
[2017-05-09] MEDS ORDERED: PROVENTIL IH ONE (17:28)
[2017-05-09] MEDS ORDERED: SODIUM BICARBONATE IV ONE ×3 (17:28→18:00)
[2017-05-09] MEDS ORDERED: D50W (25GM) Syringe IV ONE (17:28)
[2017-05-09 17:38] LABS: Chol/HDL Ratio 2.16 %
[2017-05-09] MEDS ORDERED: CALCIUM CHLORIDE IV ONE (17:43)
[2017-05-09] MEDS ORDERED: BABY ASPIRIN PO ONE (17:45)
[2017-05-09] MEDS ORDERED: NACL 0.9% 100 ML IV PRN (18:11)
[2017-05-09] MEDS ORDERED: MILK OF MAGNESIA PO PRN (18:27)
[2017-05-09] MEDS ORDERED: DULCOLAX PR PRN (18:27)
[2017-05-09] MEDS ORDERED: ZOFRAN IV PRN (18:27)
--- NOTE | 2017-05-09 18:29 | History and Physical Report ---
History of Present Illness Chief complaint: I cant breathe, and im swelling History of present illness: 51 YO Female with HTN, ESRD on HD(M,W,F), Severe Malnutrition, CHF, COPD, Nicotine Dependence, Noncompliance presents to ED for evaluation. Pt states that she has experienced shortness of breath, chest tightness, back pain, abdominal cramping and extremity cramping for the past 3 days with worsening symptoms over the past 1 day. Pt states that she has missed several dialysis sessions. Pt states that she feels bloated. Pt acknowledges noncompliance with renal diet. Pt denies fever, chills, CP, Palpitations, NVD, Syncope, or recent ill contact. Pt seen and evaluated in ED and found to be in acute respiratory failure, and patient placed on NIPPV, as well as hyperkalemia. Nephrology consulted in ED for urgent dialysis. L Past History Past Medical History: COPD, ESRD, heart failure, hypertension, other Past Surgical History: hysterectomy, bowel surgery Social history: single, smoking Family history: hypertension Medications and Allergies Allergies Allergy/AdvReac Type Severity Reaction Status Date / Time heparin Allergy Itching Verified 05/02/17 00:12 Home Medications Medication Instructions Recorded Confirmed Last Taken Type Cinacalcet HCl [Sensipar] 60 mg PO DAILY 03/31/17 05/09/17 03/30/17 History Carvedilol [Coreg] 6.25 mg PO BID #60 tablet 04/05/17 05/09/17 Unknown Rx hydrALAZINE [Apresoline TAB] 10 mg PO Q8H #60 tablet 04/05/17 05/09/17 Unknown Rx Lisinopril [Zestril TAB] 40 mg PO QDAY 05/02/17 05/09/17 Unknown History amLODIPine [Norvasc] 10 mg PO DAILY 05/02/17 05/09/17 Unknown History Sevelamer Carbonate [Renvela] 2,400 mg PO AC tablet 05/03/17 05/09/17 Unknown Rx Ranitidine HCl [Zantac 150 MG TAB] 150 mg PO BID 05/09/17 05/09/17 Unknown History Active Meds: Active Medications Acetaminophen (Tylenol) 650 mg PO Q4H PRN PRN Reason: Pain MILD(1-3)/Fever >100.5/HERNANDEZ Albuterol (Proventil) 2.5 mg IH Q4HRT PRN PRN Reason: Shortness Of Breath Bisacodyl (Dulcolax) [address] QDAY PRN PRN Reason: Constipation unrelieved by MOM Nitroglycerin/Dextrose (Tridil Drip 50mg/250ml) 50 mg in 250 mls @ 3 mls/hr IV TITR ONE; 10 MCG/MIN PRN Reason: Protocol Stop: 05/13/17 04:11 Last Admin: 05/09/17 17:04 Dose: 100 mcg/min, 30 mls/hr Sodium Chloride (Nacl 0.9%) 100 mls @ 999 mls/hr IV PAULA PRN PRN Reason: Hypotension Magnesium Hydroxide (Milk Of Magnesia) 30 ml PO Q4H PRN PRN Reason: Constipation Review of Systems Constitutional: weight gain, no weight loss, no fever, no chills Ears, nose, mouth and throat: no ear pain, no tinnitis, no decreased hearing Breasts: no change in shape, no swelling, no mass Cardiovascular: leg edema, no chest pain, no orthopnea, no palpitations, no shortness of breath Respiratory: no cough, no cough with sputum, no excessive sputum, no hemoptysis Gastrointestinal: no nausea, no vomiting, no diarrhea, no constipation Genitourinary Female: no pelvic pain, no flank pain, no menorrhagia Rectal: no pain, no incontinence, no bleeding Musculoskeletal: no neck stiffness, no neck pain, no shooting arm pain, no arm numbness/tingling, no low back pain, no shooting leg pain, no leg numbness/ tingling Integumentary: no rash, no pruritis, no redness, no sores Neurological: no head injury, no transient paralysis, no paralysis, no weakness , no parathesias Psychiatric: no anxiety, no memory loss, no change in sleep habits, no sleep disturbances, no insomnia, no hypersomnia Endocrine: no cold intolerance, no heat intolerance, no polyphagia, no excessive thirst, no polydipsia, no polyuria, no weight change Hematologic/Lymphatic: no easy bruising, no easy bleeding Allergic/Immunologic: no urticaria, no allergic rhinitis, no wheezing Exam - Constitutional Vitals: Temp Pulse Resp BP Pulse Ox 98.1 F 105 H 26 H 155/89 97 05/09/17 16:35 05/09/17 18:15 05/09/17 18:15 05/09/17 18:15 05/09/17 18:15 General appearance: Present: mild distress, cachectic, disheveled - EENT Eyes: Present: PERRL ENT: hearing intact, clear oral mucosa - Neck Neck: Present: supple, normal ROM - Respiratory Respiratory effort: labored Respiratory: bilateral: diminished - Cardiovascular Heart Sounds: Present: S1 & S2. Absent: rub, click - Extremities Extremities: pulses symmetrical, No edema Extremity abnormal: edema Peripheral Pulses: within normal limits - Abdominal General gastrointestinal: Present: soft, non-tender, non-distended, normal bowel sounds Female genitourinary: Present: normal - Integumentary Integumentary: Present: clear, warm, dry - Musculoskeletal Musculoskeletal: gait normal, strength equal bilaterally - Psychiatric Psychiatric: appropriate mood/affect, intact judgment & insight - Neurologic Neurologic: CNII-XII intact, moves all extremities Results - Labs CBC & Chem 7: 05/09/17 16:39 05/09/17 16:39 Labs: Abnormal lab results 05/09/17 05/09/17 05/09/17 Range/Units 16:39 16:39 16:39 RBC 3.04 L (3.65-5.03) M/mm3 Hgb 8.7 L (10.1-14.3) gm/dl Hct 28.2 L (30.3-42.9) % RDW 16.8 H (13.2-15.2) % Lymph % (Auto) 9.9 L (13.4-35.0) % Hoke % (Auto) 12.2 H (0.0-7.3) % Lymph # 1.0 L (1.2-5.4) K/mm3 Hoke # 1.3 H (0.0-0.8) K/mm3 Seg Neutrophils % 75.5 H (40.0-70.0) % APTT 37.7 H (24.2-36.6) Sec. Sodium 136 L (137-145) mmol/L Potassium 6.8 H* (3.6-5.0) mmol/L Chloride 91.5 L (98-107) mmol/L Carbon Dioxide 19 L (22-30) mmol/L BUN 78 H (7-17) mg/dL Creatinine 8.0 H (0.7-1.2) mg/dL Magnesium 3.10 H (1.7-2.3) mg/dL Alkaline Phosphatase 173 H (35-129) units/L Troponin T 0.124 H* (0.00-0.029) ng/mL NT-Pro-B Natriuret Pep (0-900) pg/mL Total Protein 8.5 H (6.3-8.2) g/dL Cholesterol 206 H (50-199) mg/dL HDL Cholesterol 95 H (40-59) mg/dL 05/09/17 Range/Units 16:39 RBC (3.65-5.03) M/mm3 Hgb (10.1-14.3) gm/dl Hct (30.3-42.9) % RDW (13.2-15.2) % Lymph % (Auto) (13.4-35.0) % Hoke % (Auto) (0.0-7.3) % Lymph # (1.2-5.4) K/mm3 Hoke # (0.0-0.8) K/mm3 Seg Neutrophils % (40.0-70.0) % APTT (24.2-36.6) Sec. Sodium (137-145) mmol/L Potassium (3.6-5.0) mmol/L Chloride (98-107) mmol/L Carbon Dioxide (22-30) mmol/L BUN (7-17) mg/dL Creatinine (0.7-1.2) mg/dL Magnesium (1.7-2.3) mg/dL Alkaline Phosphatase (35-129) units/L Troponin T (0.00-0.029) ng/mL NT-Pro-B Natriuret Pep > 47220 H (0-900) pg/mL Total Protein (6.3-8.2) g/dL Cholesterol (50-199) mg/dL HDL Cholesterol (40-59) mg/dL Assessment and Plan - Patient Problems (1) Acute respiratory failure Current Visit: Yes Status: Acute Qualifiers: Respiratory failure complication: hypoxia Qualified Code(s): J96.01 - Acute respiratory failure with hypoxia Plan to address problem: supplemental oxygen, nebs, aspiration precautions, NIPPV as clinically indicated , urgent dialysis, fluid restriction, monitor uop q shift, (2) Acute hyperkalemia Current Visit: Yes Status: Acute Plan to address problem: Calcium gluconate, urgent dialysis, No EKG changes. (3) ESRD (end stage renal disease) Current Visit: Yes Status: Acute (4) Volume overload Current Visit: No Status: Acute Plan to address problem: fluid restriction, urgent dialysis, renal diet, sodium restriction. (5) Metabolic acidosis Current Visit: Yes Status: Acute Plan to address problem: secondary to ESRD, IV bicarbonate, urgent dialysis. (6) DVT prophylaxis Current Visit: Yes Status: Acute
[2017-05-09] MEDS ORDERED: NACL 0.9 (PRIMING MACHINE ONLY DIALYSIS) MC ONE (21:46)
[2017-05-10] MEDS: BENADRYL IV PRN ×2 (01:45→10:27)
[2017-05-10] MEDS: PERCOCET 5/325 PO PRN ×3 (01:46→21:50)
[2017-05-10] MEDS: ROXICODONE PO PRN ×3 (01:47→21:51)
[2017-05-10] MEDS ORDERED: RENVELA PO SCH (07:30)
--- NOTE | 2017-05-10 07:54 | Progress Note ---
<CLAIRE CHRISTENSEN - Last Filed: 05/10/17 13:55> Assessment and Plan Assessment and plan: Patient is a 51 years old female with past medical history of HTN, ESRD on HD(M ,W,F), Severe Malnutrition, CHF, COPD, Nicotine Dependence, Noncompliance presents to ED for shortness of breath, chest tightness, back pain, abdominal cramping and extremity cramping for the past 3 days with worsening symptoms over the past 1 day. Pt states that she has missed several dialysis sessions. Acute respiratory failure with hypoxia Secondary to fluid overload Improved with hemodialysis Patient oxygen saturation improved with 2LNC; currently SPO2 98%. No acute respiratory distress noted. Aggressive Nebulizers/Inhalers ABG when necessary Oxygen supplement Supportive care End-stage renal disease on dialysis Mangaed by Nephrology Hyperkalemia Patient had hemodialysis BMP pending Hypertensive urgency Continue home antihypertensive medications Closely monitor blood pressure Elevated troponin Most likely due to ESRD Patient previous labs with elevated troponin also Closely monitor Volume overload Hemodialysis fluid restriction, renal diet with sodium restriction. hypermagnesemia Patient had hemodialysis this morning that will correct it BMP pending Chronic Anemia Secondray to ESRD Stable no transfusion require Closely monitor H&H Noncompliance Patient noncompliance with hemodialysis Counseling done Tobacco abuse Smoking cessation counseling done. Patient strongly advised to quit. DVT prophylaxis Heparin History Interval history: Patient denies chest pain but complains on exertion. Labs and nursing notes reviewed. Hospitalist Physical - Constitutional Vitals: Temp Pulse Resp BP Pulse Ox 98.7 F 107 H 20 190/93 82 L 05/10/17 04:33 05/10/17 06:59 05/10/17 04:40 05/10/17 04:33 05/10/17 04:33 General appearance: Present: mild distress, cachectic, disheveled - EENT Eyes: Present: PERRL ENT: hearing intact - Neck Neck: Present: supple - Respiratory Respiratory effort: normal Respiratory: bilateral: CTA - Cardiovascular Rhythm: regular Heart Sounds: Present: S1 & S2 - Abdominal General gastrointestinal: soft, non-tender - Integumentary Integumentary: Present: clear, warm, dry - Psychiatric Psychiatric: appropriate mood/affect - Neurologic Neurologic: moves all extremities - Allied Health Allied health notes reviewed: nursing Results - Labs CBC & Chem 7: 05/09/17 16:39 05/09/17 16:39 Labs: Laboratory Last Values WBC 10.3 K/mm3 (4.5-11.0) 05/09/17 16:39 RBC 3.04 M/mm3 (3.65-5.03) L 05/09/17 16:39 Hgb 8.7 gm/dl (10.1-14.3) L 05/09/17 16:39 Hct 28.2 % (30.3-42.9) L 05/09/17 16:39 MCV 93 fl (79-97) 05/09/17 16:39 MCH 29 pg (28-32) 05/09/17 16:39 MCHC 31 % (30-34) 05/09/17 16:39 RDW 16.8 % (13.2-15.2) H 05/09/17 16:39 Plt Count 254 K/mm3 (140-440) 05/09/17 16:39 Lymph % (Auto) 9.9 % (13.4-35.0) L 05/09/17 16:39 [place] % (Auto) 12.2 % (0.0-7.3) H 05/09/17 16:39 Eos % (Auto) 2.1 % (0.0-4.3) 05/09/17 16:39 Baso % (Auto) 0.3 % (0.0-1.8) 05/09/17 16:39 Lymph # 1.0 K/mm3 (1.2-5.4) L 05/09/17 16:39 [place] # 1.3 K/mm3 (0.0-0.8) H 05/09/17 16:39 Eos # 0.2 K/mm3 (0.0-0.4) 05/09/17 16:39 Baso # 0.0 K/mm3 (0.0-0.1) 05/09/17 16:39 Seg Neutrophils % 75.5 % (40.0-70.0) H 05/09/17 16:39 Seg Neutrophils # 7.7 K/mm3 (1.8-7.7) 05/09/17 16:39 PT 13.9 Sec. (12.2-14.9) 05/09/17 16:39 INR 1.02 (0.87-1.13) 05/09/17 16:39 APTT 37.7 Sec. (24.2-36.6) H 05/09/17 16:39 Sodium 136 mmol/L (137-145) L 05/09/17 16:39 Potassium 6.8 mmol/L (3.6-5.0) H* 05/09/17 16:39 Chloride 91.5 mmol/L (98-107) L 05/09/17 16:39 Carbon Dioxide 19 mmol/L (22-30) L 05/09/17 16:39 Anion Gap 32 mmol/L 05/09/17 16:39 BUN 78 mg/dL (7-17) H 05/09/17 16:39 Creatinine 8.0 mg/dL (0.7-1.2) H 05/09/17 16:39 Estimated GFR 6 ml/min 05/09/17 16:39 BUN/Creatinine Ratio 10 % 05/09/17 16:39 Glucose 80 mg/dL (65-100) 05/09/17 16:39 Calcium 9.0 mg/dL (8.4-10.2) 05/09/17 16:39 Magnesium 3.10 mg/dL (1.7-2.3) H 05/09/17 16:39 Total Bilirubin 0.40 mg/dL (0.1-1.2) 05/09/17 16:39 AST 15 units/L (5-40) 05/09/17 16:39 ALT 15 units/L (7-56) 05/09/17 16:39 Alkaline Phosphatase 173 units/L (35-129) H 05/09/17 16:39 Troponin T 0.124 ng/mL (0.00-0.029) H* 05/09/17 16:39 NT-Pro-B Natriuret Pep > 37880 pg/mL (0-900) H 05/09/17 16:39 Total Protein 8.5 g/dL (6.3-8.2) H 05/09/17 16:39 Albumin 4.2 g/dL (3.9-5) 05/09/17 16:39 Albumin/Globulin Ratio 1.0 % 05/09/17 16:39 Triglycerides 67 mg/dL (2-149) 05/09/17 16:39 Cholesterol 206 mg/dL (50-199) H 05/09/17 16:39 LDL Cholesterol Direct 98 mg/dL (50-130) 05/09/17 16:39 HDL Cholesterol 95 mg/dL (40-59) H 05/09/17 16:39 Cholesterol/HDL Ratio 2.16 % 05/09/17 16:39 <YOVANNY MOHAN M - Last Filed: 05/10/17 18:41> Hospitalist Physical - Constitutional Vitals: Temp Pulse Resp BP Pulse Ox 98.3 F 99 H 22 190/101 99 05/10/17 16:20 05/10/17 16:20 05/10/17 16:20 05/10/17 16:20 05/10/17 16:20 Results - Labs CBC & Chem 7: 05/09/17 16:39 05/10/17 15:51 Labs: Laboratory Last Values WBC 10.3 K/mm3 (4.5-11.0) 05/09/17 16:39 RBC 3.04 M/mm3 (3.65-5.03) L 05/09/17 16:39 Hgb 8.7 gm/dl (10.1-14.3) L 05/09/17 16:39 Hct 28.2 % (30.3-42.9) L 05/09/17 16:39 MCV 93 fl (79-97) 05/09/17 16:39 MCH 29 pg (28-32) 05/09/17 16:39 MCHC 31 % (30-34) 05/09/17 16:39 RDW 16.8 % (13.2-15.2) H 05/09/17 16:39 Plt Count 254 K/mm3 (140-440) 05/09/17 16:39 Lymph % (Auto) 9.9 % (13.4-35.0) L 05/09/17 16:39 [place] % (Auto) 12.2 % (0.0-7.3) H 05/09/17 16:39 Eos % (Auto) 2.1 % (0.0-4.3) 05/09/17 16:39 Baso % (Auto) 0.3 % (0.0-1.8) 05/09/17 16:39 Lymph # 1.0 K/mm3 (1.2-5.4) L 05/09/17 16:39 [place] # 1.3 K/mm3 (0.0-0.8) H 05/09/17 16:39 Eos # 0.2 K/mm3 (0.0-0.4) 05/09/17 16:39 Baso # 0.0 K/mm3 (0.0-0.1) 05/09/17 16:39 Seg Neutrophils % 75.5 % (40.0-70.0) H 05/09/17 16:39 Seg Neutrophils # 7.7 K/mm3 (1.8-7.7) 05/09/17 16:39 PT 13.9 Sec. (12.2-14.9) 05/09/17 16:39 INR 1.02 (0.87-1.13) 05/09/17 16:39 APTT 37.7 Sec. (24.2-36.6) H 05/09/17 16:39 Sodium 139 mmol/L (137-145) 05/10/17 15:51 Potassium 3.4 mmol/L (3.6-5.0) L D 05/10/17 15:51 Chloride 92.9 mmol/L (98-107) L 05/10/17 15:51 Carbon Dioxide 29 mmol/L (22-30) D 05/10/17 15:51 Anion Gap 21 mmol/L 05/10/17 15:51 BUN 18 mg/dL (7-17) H 05/10/17 15:51 Creatinine 2.7 mg/dL (0.7-1.2) H D 05/10/17 15:51 Estimated GFR 22 ml/min 05/10/17 15:51 BUN/Creatinine Ratio 7 % 05/10/17 15:51 Glucose 97 mg/dL (65-100) 05/10/17 15:51 Calcium 10.3 mg/dL (8.4-10.2) H 05/10/17 15:51 Magnesium 3.10 mg/dL (1.7-2.3) H 05/09/17 16:39 Total Bilirubin 0.40 mg/dL (0.1-1.2) 05/09/17 16:39 AST 15 units/L (5-40) 05/09/17 16:39 ALT 15 units/L (7-56) 05/09/17 16:39 Alkaline Phosphatase 173 units/L (35-129) H 05/09/17 16:39 Troponin T 0.124 ng/mL (0.00-0.029) H* 05/09/17 16:39 NT-Pro-B Natriuret Pep > 78135 pg/mL (0-900) H 05/09/17 16:39 Total Protein 8.5 g/dL (6.3-8.2) H 05/09/17 16:39 Albumin 4.2 g/dL (3.9-5) 05/09/17 16:39 Albumin/Globulin Ratio 1.0 % 05/09/17 16:39 Triglycerides 67 mg/dL (2-149) 05/09/17 16:39 Cholesterol 206 mg/dL (50-199) H 05/09/17 16:39 LDL Cholesterol Direct 98 mg/dL (50-130) 05/09/17 16:39 HDL Cholesterol 95 mg/dL (40-59) H 05/09/17 16:39 Cholesterol/HDL Ratio 2.16 % 05/09/17 16:39
--- NOTE | 2017-05-10 08:38 | Consultation ---
History of Present Illness - Reason for Consult Consult date: 05/10/17 end stage renal disease, hyperkalemia, metabolic acidosis - History of Present Illness The patient is a 51 AAF with medical history significant for ESRD on hemodialysis on MWFs, Systolic CHF, COPD, Hypertension and tobacco smoking who came to the ED with shortness of breath. Patient is short of breath at baseline which has gotten worse for the past few days. The symptoms are worse for one day. Associated symptoms include orthopnea and cough. Chest Xray showed pulmonary edema and her potassium was 6.8. Patient had urgent hemodialysis last night and her symptoms are better today. No h/o fever, chills , N, V, D, CP or hemoptysis. Patient gets hemodialysis at [facility] and followed by . She was last dialyzed at the outpatient center on 05/07/17. She continue to smoke 1/2 pack of cigarettes a day. Past History Past Medical History: COPD, dialysis, ESRD, heart failure, hypertension, other Past Surgical History: hysterectomy, bowel surgery Social history: single, smoking Family history: hypertension Medications and Allergies Allergies Allergy/AdvReac Type Severity Reaction Status Date / Time heparin Allergy Itching Verified 05/02/17 00:12 Home Medications Medication Instructions Recorded Confirmed Last Taken Type Cinacalcet HCl [Sensipar] 60 mg PO DAILY 03/31/17 05/09/17 03/30/17 History Carvedilol [Coreg] 6.25 mg PO BID #60 tablet 04/05/17 05/09/17 Unknown Rx hydrALAZINE [Apresoline TAB] 10 mg PO Q8H #60 tablet 04/05/17 05/09/17 Unknown Rx Lisinopril [Zestril TAB] 40 mg PO QDAY 05/02/17 05/09/17 Unknown History amLODIPine [Norvasc] 10 mg PO DAILY 05/02/17 05/09/17 Unknown History Sevelamer Carbonate [Renvela] 2,400 mg PO AC tablet 05/03/17 05/09/17 Unknown Rx Ranitidine HCl [Zantac 150 MG TAB] 150 mg PO BID 05/09/17 05/09/17 Unknown History Active Meds: Active Medications Acetaminophen (Tylenol) 650 mg PO Q4H PRN PRN Reason: Pain MILD(1-3)/Fever >100.5/HERNANDEZ Albuterol (Proventil) 2.5 mg IH Q4HRT PRN PRN Reason: Shortness Of Breath Bisacodyl (Dulcolax) 10 mg MN QDAY PRN PRN Reason: Constipation unrelieved by MOM Diphenhydramine HCl (Benadryl) 25 mg IV Q6H PRN PRN Reason: Itching Last Admin: 05/10/17 01:45 Dose: 25 mg Sodium Chloride (Nacl 0.9%) 100 mls @ 999 mls/hr IV PAULA PRN PRN Reason: Hypotension Magnesium Hydroxide (Milk Of Magnesia) 30 ml PO Q4H PRN PRN Reason: Constipation Ondansetron HCl (Zofran) 4 mg IV Q8H PRN PRN Reason: N/V unrelieved by Reglan Oxycodone HCl (Roxicodone) 5 mg PO Q6H PRN PRN Reason: Pain, Moderate (4-6) Last Admin: 05/10/17 01:47 Dose: 5 mg Oxycodone/Acetaminophen (Percocet 5/325) 1 tab PO Q6H PRN PRN Reason: Pain, Moderate (4-6) Last Admin: 05/10/17 01:46 Dose: 1 tab Sevelamer Carbonate (Renvela) 2,400 mg PO AC ALEX Last Admin: 05/10/17 08:20 Dose: 2,400 mg Review of Systems Constitutional: no weight loss, no weight gain, no fever, no chills Ears, nose, mouth and throat: no epistaxis Breasts: deferred Cardiovascular: orthopnea, shortness of breath, dyspnea on exertion, high blood pressure, no chest pain, no palpitations, no rapid/irregular heart beat, no edema, no syncope, no lightheadedness, no leg edema, no decreased exercise tolerance Respiratory: cough, cough with sputum, shortness of breath, dyspnea on exertion , no hemoptysis Gastrointestinal: no abdominal pain, no nausea, no vomiting, no diarrhea, no melena Genitourinary Female: no dysuria, no hematuria Rectal: no bleeding Musculoskeletal: no redness of joints, no hot joints Integumentary: no rash, no redness, no sores, no wounds, no jaundice Neurological: no paralysis, no weakness, no seizures, no syncope, no change in speech, no change in mentation, no confusion, no loss of vision Endocrine: no weight change Exam - Vital Signs Vital signs: Vital Signs Temp Pulse Resp BP Pulse Ox 98.1 F 101 H 31 H 184/96 96 05/09/17 16:35 05/09/17 16:35 05/09/17 16:35 05/09/17 16:35 05/09/17 16:35 - General Appearance General appearance: well-developed, appears stated age, other (tachypneic on talking, thin built) EENT: ATNC, PERRL, mucous membranes moist, vision intact, hearing diminished Neck: Present: neck supple, trachea midline Respiratory: Clear to Ascultation, Other (coarse breath sounds) Heart: regular, S1S2, no murmurs Gastrointestinal: Present: normoactive bowel sounds. Absent: tenderness, distended Integumentary: no rash, warm and dry Neurologic: no focal deficit, no asterixis, alert and oriented x3 Musculoskeletal: Present: other (no edema, lefta rm AVF) Psychiatric: mood/affect appropriate, cooperative Results - Lab Results 05/09/17 16:39 05/09/17 16:39 Most recent lab results Calcium 9.0 mg/dL (8.4-10.2) 05/09/17 16:39 Magnesium 3.10 mg/dL (1.7-2.3) H 05/09/17 16:39 Assessment and Plan 1. Hyperkalemia: S/p urgent hemodialysis. 2. Shortness of breath: Likely from combination of Volume overload / Pulmonary edema and COPD. Symptoms are better after hemodialysis yesterday. 3. ESRD: Continue hemodialysis three times a week. Plan to do hemodialysis today. 4. Anemia: Epogen. 5. Hypertension: Monitor BP.
--- NOTE | 2017-05-10 09:11 | XRay Report ---
FINAL REPORT EXAM: XR CHEST 1V AP HISTORY: Dyspnea TECHNIQUE: Chest, portable PRIORS: 05/01/2017 FINDINGS: There is moderate cardiomegaly. There is pulmonary vascular congestion, worsened in the interval. There is some perihilar infiltration which may be edema. There is some scarring versus subsegmental atelectasis in mid lungs. There is no pneumothorax seen. There is questionably a small left pleural effusion. IMPRESSION: Moderate cardiomegaly with some worsening of congestion/CHF.
[2017-05-10] MEDS ORDERED: NACL 0.9% 100 ML IV PRN (11:00)
[2017-05-10] MEDS ORDERED: PROCRIT SUB-Q ONE (12:00)
[2017-05-10] MEDS ORDERED: NACL 0.9 (PRIMING MACHINE ONLY DIALYSIS) MC ONE (14:11)
[2017-05-10] MEDS ORDERED: PROCRIT ONE (14:12)
[2017-05-10] MEDS: RENVELA PO SCH ×2 (15:12→18:00)
[2017-05-10] MEDS: ZESTRIL PO SCH (16:05)
[2017-05-10] MEDS: APRESOLINE PO SCH ×2 (16:06→21:51)
[2017-05-10] MEDS: SENSIPAR PO SCH (16:06)
[2017-05-10] MEDS: NORVASC PO SCH (16:08)
[2017-05-10 17:03] LABS: Calcium 10.3 mg/dL (8.4-10.2)
[2017-05-10] MEDS: COREG PO SCH (21:50)
[2017-05-10] MEDS: PEPCID PO SCH (21:51)
[2017-05-10] MEDS: BENADRYL PO PRN (21:51)
[2017-05-10] MEDS ORDERED: NON-FORMULARY (Ranitidine Hcl [Zantac 150 Mg Tab] 150 MG) PO SCH (22:00)
[2017-05-11] MEDS: APRESOLINE PO SCH ×3 (05:10→21:02)
[2017-05-11] MEDS: RENVELA PO SCH ×3 (08:20→16:57)
[2017-05-11 08:23] LABS: Hematocrit 25.6 % (30.3-42.9); Hemoglobin 8.3 gm/dl (10.1-14.3); Mean Corpuscular HGB Conc 33 % (30-34); Mean Corpuscular Hemoglobin 29 pg (28-32); Mean Corpuscular Volume 90 fl (79-97); Platelet Count 202 K/mm3 (140-440); Red Blood Count 2.83 M/mm3 (3.65-5.03); Red Cell Distribution Width 16.3 % (13.2-15.2)
[2017-05-11 08:24] LABS: Calcium 9.3 mg/dL (8.4-10.2)
--- NOTE | 2017-05-11 09:15 | Discharge Summary ---
<CLAIRE CHRISTENSEN - Last Filed: 05/11/17 11:34> Providers - Providers Date of Admission: 05/09/17 18:27 Date of discharge: 05/11/17 Attending physician: YOVANNY MOHAN MD 05/09/17 17:05 Consult to Physician [CONS] Urgent Consulting Provider: RANDELL KELLY Reason For Exam: esrd Notified:: yes 05/10/17 13:39 Consult to Dietitian/Nutrition [CONS] Routine Physician Instructions: Reason For Exam: Reason for Consult: Pt needs oral supplement 05/10/17 18:43 Consult to Case Management [CONS] Routine Services Needed at Discharge: Home O2 Notified:: CM NOTIFIED Additional Physician Instructions: needs portable oxygen Primary care physician: INTERIOR DESIGN TEACHER Hospitalization Condition: Good Disposition: DC-01 TO HOME OR SELFCARE Exam - Constitutional Vitals: Temp Pulse Resp BP Pulse Ox 98.2 F 94 H 20 161/85 97 05/11/17 07:51 05/11/17 07:51 05/11/17 07:51 05/11/17 07:51 05/11/17 07:51 Plan Follow up with: PRIMARY CARE, [Primary Care Provider] - 3-5 Days <YOVANNY MOHAN - Last Filed: 05/13/17 11:00> Providers - Providers Date of Admission: 05/09/17 18:27 Attending physician: YOVANNY MOHAN MD 05/09/17 17:05 Consult to Physician [CONS] Urgent Consulting Provider: RANDELL KELLY Reason For Exam: esrd Notified:: yes 05/10/17 13:39 Consult to Dietitian/Nutrition [CONS] Routine Physician Instructions: Reason For Exam: Reason for Consult: Pt needs oral supplement 05/10/17 18:43 Consult to Case Management [CONS] Routine Services Needed at Discharge: Home O2 Notified:: CM NOTIFIED Additional Physician Instructions: needs portable oxygen Primary care physician: INTERIOR DESIGN TEACHER Exam - Constitutional Vitals: Temp Pulse Resp BP Pulse Ox 97.8 F 96 H 18 168/94 96 05/13/17 07:56 05/13/17 09:38 05/13/17 09:38 05/13/17 07:56 05/13/17 09:28
[2017-05-11] MEDS ORDERED: NON-FORMULARY (Cinacalcet Hcl [Sensipar] 60 MG) PO SCH (10:00)
--- NOTE | 2017-05-11 10:09 | Progress Note ---
Assessment and Plan 1. Hyperkalemia: Potassium level is high today. Patient received hemodialysis yesterday. Kayexalate ordered. If K level remain high will have to d/c Lisinopril. 2. Shortness of breath: Likely from combination of Volume overload / Pulmonary edema and COPD. Symptoms are improving. Counseled multiple times to quit smoking. 3. ESRD: Continue hemodialysis three times a week. Plan to do hemodialysis tomorrow. 4. Anemia: Epogen. 5. Hypertension: Monitor BP. Subjective Date of service: 05/11/17 Interval history: Patient has some shortness of breath. Objective - Vital Signs Vital signs: Vital Signs - 12hr 05/10/17 05/10/17 05/10/17 22:43 22:50 22:51 Temperature Pulse Rate Respiratory 20 20 20 Rate Respiratory 20 Rate [Back] Blood Pressure O2 Sat by Pulse 97 Oximetry 05/11/17 05/11/17 05/11/17 04:43 05:10 07:51 Temperature 97.8 F 98.2 F Pulse Rate 94 H 94 H Respiratory 20 20 Rate Respiratory Rate [Back] Blood Pressure 178/114 187/114 161/85 O2 Sat by Pulse 98 97 Oximetry - General Appearance General appearance: well-developed, appears stated age, other (no distress) EENT: ATNC, PERRL, vision intact, hearing diminished Neck: supple Respiratory: Present: Other (coarse breath sounds) Cardiology: regular, S1S2, no murmurs Gastrointestinal: normoactive bowel sounds, no tenderness, no distended Integumentary: no rash, warm and dry Neurologic: no focal deficit, no asterixis, alert and oriented x3, CN 3-12 intact Musculoskeletal: other (no edema, left arm AVF) Psychiatric: mood/affect appropriate, cooperative - Lab 05/11/17 07:42 05/11/17 07:42 Most recent lab results Calcium 9.3 mg/dL (8.4-10.2) 05/11/17 07:42 Magnesium 3.10 mg/dL (1.7-2.3) H 05/09/17 16:39
[2017-05-11] MEDS: ZESTRIL PO SCH (10:29)
[2017-05-11] MEDS: SENSIPAR PO SCH (10:29)
[2017-05-11] MEDS: NORVASC PO SCH (10:29)
[2017-05-11] MEDS: PEPCID PO SCH ×2 (10:29→21:02)
[2017-05-11] MEDS ORDERED: KIONEX PO ONE (10:30)
[2017-05-11] MEDS: COREG PO SCH ×2 (10:30→21:01)
--- NOTE | 2017-05-11 14:48 | Progress Note ---
<CLAIRE CHRISTENSEN - Last Filed: 05/11/17 14:52> Assessment and Plan Assessment and plan: Patient is a 51 years old female with past medical history of HTN, ESRD on HD(M ,W,F), Severe Malnutrition, CHF, COPD, Nicotine Dependence, Noncompliance presents to ED for shortness of breath, chest tightness, back pain, abdominal cramping and extremity cramping for the past 3 days with worsening symptoms over the past 1 day. Pt states that she has missed several dialysis sessions. Acute on chronic respiratory failure with hypoxia Secondary to fluid overload Improved with hemodialysis Patient oxygen saturation improved with 2LNC; currently SPO2 98%. No acute respiratory distress noted. Aggressive Nebulizers/Inhalers ABG when necessary Oxygen supplement Supportive care End-stage renal disease on dialysis Mangaed by Nephrology Hyperkalemia Mild Patient will HD tomorrow Closely monitor BMP Hypertensive urgency Continue home antihypertensive medications Closely monitor blood pressure Elevated troponin Most likely due to ESRD Patient previous labs with elevated troponin also Closely monitor Volume overload Hemodialysis fluid restriction, renal diet with sodium restriction. hypermagnesemia Patient had hemodialysis this morning that will correct it BMP pending Chronic Anemia Secondray to ESRD Stable no transfusion require Closely monitor H&H Noncompliance Patient noncompliance with hemodialysis Counseling done Tobacco abuse Smoking cessation counseling done. Patient strongly advised to quit. DVT prophylaxis Heparin History Interval history: Patient denies chest pain but complains on exertion. Labs and nursing notes reviewed. Hospitalist Physical - Constitutional Vitals: Temp Pulse Resp BP Pulse Ox 97.4 F L 102 H 22 193/112 97 05/11/17 12:36 05/11/17 12:36 05/11/17 12:36 05/11/17 12:36 05/11/17 12:36 General appearance: Present: mild distress, cachectic, disheveled - EENT Eyes: Present: PERRL - Neck Neck: Present: supple - Respiratory Respiratory effort: normal Respiratory: bilateral: CTA - Cardiovascular Rhythm: regular Heart Sounds: Present: S1 & S2 - Abdominal General gastrointestinal: soft, non-tender - Integumentary Integumentary: Present: clear, warm, dry - Psychiatric Psychiatric: appropriate mood/affect - Neurologic Neurologic: moves all extremities - Allied Health Allied health notes reviewed: nursing Results - Labs CBC & Chem 7: 05/11/17 07:42 05/11/17 07:42 Labs: Laboratory Last Values WBC 6.5 K/mm3 (4.5-11.0) 05/11/17 07:42 RBC 2.83 M/mm3 (3.65-5.03) L 05/11/17 07:42 Hgb 8.3 gm/dl (10.1-14.3) L 05/11/17 07:42 Hct 25.6 % (30.3-42.9) L 05/11/17 07:42 MCV 90 fl (79-97) 05/11/17 07:42 MCH 29 pg (28-32) 05/11/17 07:42 MCHC 33 % (30-34) 05/11/17 07:42 RDW 16.3 % (13.2-15.2) H 05/11/17 07:42 Plt Count 202 K/mm3 (140-440) 05/11/17 07:42 Lymph % (Auto) 9.9 % (13.4-35.0) L 05/09/17 16:39 [place] % (Auto) 12.2 % (0.0-7.3) H 05/09/17 16:39 Eos % (Auto) 2.1 % (0.0-4.3) 05/09/17 16:39 Baso % (Auto) 0.3 % (0.0-1.8) 05/09/17 16:39 Lymph # 1.0 K/mm3 (1.2-5.4) L 05/09/17 16:39 [place] # 1.3 K/mm3 (0.0-0.8) H 05/09/17 16:39 Eos # 0.2 K/mm3 (0.0-0.4) 05/09/17 16:39 Baso # 0.0 K/mm3 (0.0-0.1) 05/09/17 16:39 Seg Neutrophils % 75.5 % (40.0-70.0) H 05/09/17 16:39 Seg Neutrophils # 7.7 K/mm3 (1.8-7.7) 05/09/17 16:39 PT 13.9 Sec. (12.2-14.9) 05/09/17 16:39 INR 1.02 (0.87-1.13) 05/09/17 16:39 APTT 37.7 Sec. (24.2-36.6) H 05/09/17 16:39 Sodium 139 mmol/L (137-145) 05/11/17 07:42 Potassium 5.1 mmol/L (3.6-5.0) H D 05/11/17 07:42 Chloride 95.3 mmol/L (98-107) L 05/11/17 07:42 Carbon Dioxide 27 mmol/L (22-30) 05/11/17 07:42 Anion Gap 22 mmol/L 05/11/17 07:42 BUN 43 mg/dL (7-17) H 05/11/17 07:42 Creatinine 4.5 mg/dL (0.7-1.2) H D 05/11/17 07:42 Estimated GFR 12 ml/min 05/11/17 07:42 BUN/Creatinine Ratio 10 % 05/11/17 07:42 Glucose 86 mg/dL (65-100) 05/11/17 07:42 Calcium 9.3 mg/dL (8.4-10.2) 05/11/17 07:42 Magnesium 3.10 mg/dL (1.7-2.3) H 05/09/17 16:39 Total Bilirubin 0.40 mg/dL (0.1-1.2) 05/09/17 16:39 AST 15 units/L (5-40) 05/09/17 16:39 ALT 15 units/L (7-56) 05/09/17 16:39 Alkaline Phosphatase 173 units/L (35-129) H 05/09/17 16:39 Troponin T 0.124 ng/mL (0.00-0.029) H* 05/09/17 16:39 NT-Pro-B Natriuret Pep > 40140 pg/mL (0-900) H 05/09/17 16:39 Total Protein 8.5 g/dL (6.3-8.2) H 05/09/17 16:39 Albumin 4.2 g/dL (3.9-5) 05/09/17 16:39 Albumin/Globulin Ratio 1.0 % 05/09/17 16:39 Triglycerides 67 mg/dL (2-149) 05/09/17 16:39 Cholesterol 206 mg/dL (50-199) H 05/09/17 16:39 LDL Cholesterol Direct 98 mg/dL (50-130) 05/09/17 16:39 HDL Cholesterol 95 mg/dL (40-59) H 05/09/17 16:39 Cholesterol/HDL Ratio 2.16 % 05/09/17 16:39 <YOVANNY MOHAN M - Last Filed: 05/11/17 17:10> Hospitalist Physical - Constitutional Vitals: Temp Pulse Resp BP Pulse Ox 97.4 F L 102 H 22 190/100 97 05/11/17 12:36 05/11/17 12:36 05/11/17 12:36 05/11/17 14:56 05/11/17 12:36 Results - Labs CBC & Chem 7: 05/11/17 07:42 05/11/17 07:42 Labs: Laboratory Last Values WBC 6.5 K/mm3 (4.5-11.0) 05/11/17 07:42 RBC 2.83 M/mm3 (3.65-5.03) L 05/11/17 07:42 Hgb 8.3 gm/dl (10.1-14.3) L 05/11/17 07:42 Hct 25.6 % (30.3-42.9) L 05/11/17 07:42 MCV 90 fl (79-97) 05/11/17 07:42 MCH 29 pg (28-32) 05/11/17 07:42 MCHC 33 % (30-34) 05/11/17 07:42 RDW 16.3 % (13.2-15.2) H 05/11/17 07:42 Plt Count 202 K/mm3 (140-440) 05/11/17 07:42 Lymph % (Auto) 9.9 % (13.4-35.0) L 05/09/17 16:39 [place] % (Auto) 12.2 % (0.0-7.3) H 05/09/17 16:39 Eos % (Auto) 2.1 % (0.0-4.3) 05/09/17 16:39 Baso % (Auto) 0.3 % (0.0-1.8) 05/09/17 16:39 Lymph # 1.0 K/mm3 (1.2-5.4) L 05/09/17 16:39 [place] # 1.3 K/mm3 (0.0-0.8) H 05/09/17 16:39 Eos # 0.2 K/mm3 (0.0-0.4) 05/09/17 16:39 Baso # 0.0 K/mm3 (0.0-0.1) 05/09/17 16:39 Seg Neutrophils % 75.5 % (40.0-70.0) H 05/09/17 16:39 Seg Neutrophils # 7.7 K/mm3 (1.8-7.7) 05/09/17 16:39 PT 13.9 Sec. (12.2-14.9) 05/09/17 16:39 INR 1.02 (0.87-1.13) 05/09/17 16:39 APTT 37.7 Sec. (24.2-36.6) H 05/09/17 16:39 Sodium 139 mmol/L (137-145) 05/11/17 07:42 Potassium 5.1 mmol/L (3.6-5.0) H D 05/11/17 07:42 Chloride 95.3 mmol/L (98-107) L 05/11/17 07:42 Carbon Dioxide 27 mmol/L (22-30) 05/11/17 07:42 Anion Gap 22 mmol/L 05/11/17 07:42 BUN 43 mg/dL (7-17) H 05/11/17 07:42 Creatinine 4.5 mg/dL (0.7-1.2) H D 05/11/17 07:42 Estimated GFR 12 ml/min 05/11/17 07:42 BUN/Creatinine Ratio 10 % 05/11/17 07:42 Glucose 86 mg/dL (65-100) 05/11/17 07:42 Calcium 9.3 mg/dL (8.4-10.2) 05/11/17 07:42 Magnesium 3.10 mg/dL (1.7-2.3) H 05/09/17 16:39 Total Bilirubin 0.40 mg/dL (0.1-1.2) 05/09/17 16:39 AST 15 units/L (5-40) 05/09/17 16:39 ALT 15 units/L (7-56) 05/09/17 16:39 Alkaline Phosphatase 173 units/L (35-129) H 05/09/17 16:39 Troponin T 0.124 ng/mL (0.00-0.029) H* 05/09/17 16:39 NT-Pro-B Natriuret Pep > 22355 pg/mL (0-900) H 05/09/17 16:39 Total Protein 8.5 g/dL (6.3-8.2) H 05/09/17 16:39 Albumin 4.2 g/dL (3.9-5) 05/09/17 16:39 Albumin/Globulin Ratio 1.0 % 05/09/17 16:39 Triglycerides 67 mg/dL (2-149) 05/09/17 16:39 Cholesterol 206 mg/dL (50-199) H 05/09/17 16:39 LDL Cholesterol Direct 98 mg/dL (50-130) 05/09/17 16:39 HDL Cholesterol 95 mg/dL (40-59) H 05/09/17 16:39 Cholesterol/HDL Ratio 2.16 % 05/09/17 16:39
[2017-05-11] MEDS: PROVENTIL IH PRN (17:31)
[2017-05-11] MEDS: PERCOCET 5/325 PO PRN (21:01)
[2017-05-11] MEDS: BENADRYL PO PRN (21:02)
[2017-05-12] MEDS: APRESOLINE PO SCH ×3 (05:08→22:08)
[2017-05-12 05:10] LABS: Calcium 9.9 mg/dL (8.4-10.2)
[2017-05-12 06:03] LABS: Hematocrit 24.8 % (30.3-42.9); Mean Corpuscular HGB Conc 32 % (30-34); Mean Corpuscular Hemoglobin 29 pg (28-32); Mean Corpuscular Volume 91 fl (79-97); Platelet Count 200 K/mm3 (140-440); Red Blood Count 2.72 M/mm3 (3.65-5.03); Red Cell Distribution Width 16.3 % (13.2-15.2)
[2017-05-12] MEDS: RENVELA PO SCH ×4 (08:50→18:50)
--- NOTE | 2017-05-12 09:28 | Progress Note ---
Assessment and Plan 1. Hyperkalemia: Potassium level is better today. Patient received Kayexalate yesterday. HD today. 2. Shortness of breath: Likely from combination of Volume overload / Pulmonary edema and COPD. Symptoms are improving. Counseled multiple times to quit smoking. 3. ESRD: Continue hemodialysis three times a week, MWF schedule. 4. Anemia: Epogen. 5. Hypertension: Monitor BP. Subjective Date of service: 05/12/17 Interval history: Patient has some shortness of breath. Objective - Vital Signs Vital signs: Vital Signs - 12hr 05/11/17 05/11/17 05/12/17 21:39 22:39 00:20 Temperature 98.6 F Pulse Rate 98 H Respiratory 22 Rate Blood Pressure 192/107 Blood Pressure 179/92 [Right] O2 Sat by Pulse 94 97 Oximetry 05/12/17 05/12/17 05/12/17 04:44 05:13 07:54 Temperature 97.7 F 98.6 F Pulse Rate 100 H 98 H Respiratory 24 20 Rate Blood Pressure 189/102 158/79 Blood Pressure 168/90 [Right] O2 Sat by Pulse 96 96 Oximetry - General Appearance General appearance: well-developed, appears stated age, other (tachypnea on talking) EENT: ATNC, PERRL, vision intact, hearing diminished Neck: supple Respiratory: Present: Rales Cardiology: regular, S1S2, no murmurs Gastrointestinal: normoactive bowel sounds, no tenderness, no distended Integumentary: no rash, warm and dry Neurologic: no asterixis, alert and oriented x3, other (hard of hearing) Musculoskeletal: other (no edema, left arm AVF) Psychiatric: mood/affect appropriate, cooperative - Lab 05/12/17 04:05 05/12/17 04:05 Most recent lab results Calcium 9.9 mg/dL (8.4-10.2) 05/12/17 04:05 Magnesium 3.10 mg/dL (1.7-2.3) H 05/09/17 16:39
[2017-05-12] MEDS ORDERED: PROCRIT SUB-Q ONE (09:44)
[2017-05-12] MEDS: PEPCID PO SCH ×2 (10:37→22:08)
[2017-05-12] MEDS: BENADRYL PO PRN (10:38)
[2017-05-12] MEDS: PERCOCET 5/325 PO PRN (10:38)
[2017-05-12] MEDS: ROXICODONE PO PRN (10:38)
[2017-05-12] MEDS: COREG PO SCH ×2 (10:55→22:08)
--- NOTE | 2017-05-12 14:03 | Progress Note ---
<CLAIRE CHRISTENSEN - Last Filed: 05/12/17 14:03> Assessment and Plan Assessment and plan: Patient is a 51 years old female with past medical history of HTN, ESRD on HD(M ,W,F), Severe Malnutrition, CHF, COPD, Nicotine Dependence, Noncompliance presents to ED for shortness of breath, chest tightness, back pain, abdominal cramping and extremity cramping for the past 3 days with worsening symptoms over the past 1 day. Pt states that she has missed several dialysis sessions. Acute on chronic respiratory failure with hypoxia Secondary to fluid overload Improved with hemodialysis Patient oxygen saturation improved with 2LNC; currently SPO2 98%. No acute respiratory distress noted. Aggressive Nebulizers/Inhalers ABG when necessary Oxygen supplement Supportive care Disposition patient will be discharge with home O2. Patient appeal her discharge yesterday. End-stage renal disease on dialysis Mangaed by Nephrology Hyperkalemia Mild Resolved Kayexalate given yesterday Closely monitor BMP Hypertensive urgency Continue home antihypertensive medications Closely monitor blood pressure Elevated troponin Most likely due to ESRD Patient previous labs with elevated troponin also Closely monitor Volume overload Hemodialysis fluid restriction, renal diet with sodium restriction. hypermagnesemia Patient had hemodialysis this morning that will correct it BMP pending Chronic Anemia Secondray to ESRD Stable no transfusion require Closely monitor H&H Noncompliance Patient noncompliance with hemodialysis Counseling done Tobacco abuse Smoking cessation counseling done. Patient strongly advised to quit. DVT prophylaxis Heparin History Interval history: Patient complains generalized body ache. Labs and nursing notes reviewed. Hospitalist Physical - Constitutional Vitals: Temp Pulse Resp BP Pulse Ox 98.2 F 93 H 18 166/81 96 05/12/17 11:30 05/12/17 13:15 05/12/17 11:30 05/12/17 13:15 05/12/17 07:54 General appearance: Present: mild distress, cachectic, disheveled - EENT Eyes: Present: PERRL - Neck Neck: Present: supple - Respiratory Respiratory effort: normal - Cardiovascular Rhythm: regular Heart Sounds: Present: S1 & S2 - Abdominal General gastrointestinal: soft, non-tender - Integumentary Integumentary: Present: clear, warm, dry - Psychiatric Psychiatric: appropriate mood/affect - Neurologic Neurologic: moves all extremities - Allied Health Allied health notes reviewed: nursing Results - Labs CBC & Chem 7: 05/12/17 04:05 05/12/17 04:05 Labs: Laboratory Last Values WBC 8.0 K/mm3 (4.5-11.0) 05/12/17 04:05 RBC 2.72 M/mm3 (3.65-5.03) L 05/12/17 04:05 Hgb 8.0 gm/dl (10.1-14.3) L 05/12/17 04:05 Hct 24.8 % (30.3-42.9) L 05/12/17 04:05 MCV 91 fl (79-97) 05/12/17 04:05 MCH 29 pg (28-32) 05/12/17 04:05 MCHC 32 % (30-34) 05/12/17 04:05 RDW 16.3 % (13.2-15.2) H 05/12/17 04:05 Plt Count 200 K/mm3 (140-440) 05/12/17 04:05 Lymph % (Auto) 9.9 % (13.4-35.0) L 05/09/17 16:39 [place] % (Auto) 12.2 % (0.0-7.3) H 05/09/17 16:39 Eos % (Auto) 2.1 % (0.0-4.3) 05/09/17 16:39 Baso % (Auto) 0.3 % (0.0-1.8) 05/09/17 16:39 Lymph # 1.0 K/mm3 (1.2-5.4) L 05/09/17 16:39 [place] # 1.3 K/mm3 (0.0-0.8) H 05/09/17 16:39 Eos # 0.2 K/mm3 (0.0-0.4) 05/09/17 16:39 Baso # 0.0 K/mm3 (0.0-0.1) 05/09/17 16:39 Seg Neutrophils % 75.5 % (40.0-70.0) H 05/09/17 16:39 Seg Neutrophils # 7.7 K/mm3 (1.8-7.7) 05/09/17 16:39 PT 13.9 Sec. (12.2-14.9) 05/09/17 16:39 INR 1.02 (0.87-1.13) 05/09/17 16:39 APTT 37.7 Sec. (24.2-36.6) H 05/09/17 16:39 Sodium 138 mmol/L (137-145) 05/12/17 04:05 Potassium 5.0 mmol/L (3.6-5.0) 05/12/17 04:05 Chloride 91.9 mmol/L (98-107) L 05/12/17 04:05 Carbon Dioxide 25 mmol/L (22-30) 05/12/17 04:05 Anion Gap 26 mmol/L 05/12/17 04:05 BUN 63 mg/dL (7-17) H 05/12/17 04:05 Creatinine 6.2 mg/dL (0.7-1.2) H 05/12/17 04:05 Estimated GFR 9 ml/min 05/12/17 04:05 BUN/Creatinine Ratio 10 % 05/12/17 04:05 Glucose 80 mg/dL (65-100) 05/12/17 04:05 Calcium 9.9 mg/dL (8.4-10.2) 05/12/17 04:05 Magnesium 3.10 mg/dL (1.7-2.3) H 05/09/17 16:39 Total Bilirubin 0.40 mg/dL (0.1-1.2) 05/09/17 16:39 AST 15 units/L (5-40) 05/09/17 16:39 ALT 15 units/L (7-56) 05/09/17 16:39 Alkaline Phosphatase 173 units/L (35-129) H 05/09/17 16:39 Troponin T 0.124 ng/mL (0.00-0.029) H* 05/09/17 16:39 NT-Pro-B Natriuret Pep > 83631 pg/mL (0-900) H 05/09/17 16:39 Total Protein 8.5 g/dL (6.3-8.2) H 05/09/17 16:39 Albumin 4.2 g/dL (3.9-5) 05/09/17 16:39 Albumin/Globulin Ratio 1.0 % 05/09/17 16:39 Triglycerides 67 mg/dL (2-149) 05/09/17 16:39 Cholesterol 206 mg/dL (50-199) H 05/09/17 16:39 LDL Cholesterol Direct 98 mg/dL (50-130) 05/09/17 16:39 HDL Cholesterol 95 mg/dL (40-59) H 05/09/17 16:39 Cholesterol/HDL Ratio 2.16 % 05/09/17 16:39 <YOVANNY MOHAN M - Last Filed: 05/12/17 15:07> Hospitalist Physical - Constitutional Vitals: Temp Pulse Resp BP Pulse Ox 98.2 F 93 H 18 166/81 96 05/12/17 11:30 05/12/17 13:15 05/12/17 11:30 05/12/17 13:15 05/12/17 07:54 Results - Labs CBC & Chem 7: 05/12/17 04:05 05/12/17 04:05 Labs: Laboratory Last Values WBC 8.0 K/mm3 (4.5-11.0) 05/12/17 04:05 RBC 2.72 M/mm3 (3.65-5.03) L 05/12/17 04:05 Hgb 8.0 gm/dl (10.1-14.3) L 05/12/17 04:05 Hct 24.8 % (30.3-42.9) L 05/12/17 04:05 MCV 91 fl (79-97) 05/12/17 04:05 MCH 29 pg (28-32) 05/12/17 04:05 MCHC 32 % (30-34) 05/12/17 04:05 RDW 16.3 % (13.2-15.2) H 05/12/17 04:05 Plt Count 200 K/mm3 (140-440) 05/12/17 04:05 Lymph % (Auto) 9.9 % (13.4-35.0) L 05/09/17 16:39 [place] % (Auto) 12.2 % (0.0-7.3) H 05/09/17 16:39 Eos % (Auto) 2.1 % (0.0-4.3) 05/09/17 16:39 Baso % (Auto) 0.3 % (0.0-1.8) 05/09/17 16:39 Lymph # 1.0 K/mm3 (1.2-5.4) L 05/09/17 16:39 [place] # 1.3 K/mm3 (0.0-0.8) H 05/09/17 16:39 Eos # 0.2 K/mm3 (0.0-0.4) 05/09/17 16:39 Baso # 0.0 K/mm3 (0.0-0.1) 05/09/17 16:39 Seg Neutrophils % 75.5 % (40.0-70.0) H 05/09/17 16:39 Seg Neutrophils # 7.7 K/mm3 (1.8-7.7) 05/09/17 16:39 PT 13.9 Sec. (12.2-14.9) 05/09/17 16:39 INR 1.02 (0.87-1.13) 05/09/17 16:39 APTT 37.7 Sec. (24.2-36.6) H 05/09/17 16:39 Sodium 138 mmol/L (137-145) 05/12/17 04:05 Potassium 5.0 mmol/L (3.6-5.0) 05/12/17 04:05 Chloride 91.9 mmol/L (98-107) L 05/12/17 04:05 Carbon Dioxide 25 mmol/L (22-30) 05/12/17 04:05 Anion Gap 26 mmol/L 05/12/17 04:05 BUN 63 mg/dL (7-17) H 05/12/17 04:05 Creatinine 6.2 mg/dL (0.7-1.2) H 05/12/17 04:05 Estimated GFR 9 ml/min 05/12/17 04:05 BUN/Creatinine Ratio 10 % 05/12/17 04:05 Glucose 80 mg/dL (65-100) 05/12/17 04:05 Calcium 9.9 mg/dL (8.4-10.2) 05/12/17 04:05 Magnesium 3.10 mg/dL (1.7-2.3) H 05/09/17 16:39 Total Bilirubin 0.40 mg/dL (0.1-1.2) 05/09/17 16:39 AST 15 units/L (5-40) 05/09/17 16:39 ALT 15 units/L (7-56) 05/09/17 16:39 Alkaline Phosphatase 173 units/L (35-129) H 05/09/17 16:39 Troponin T 0.124 ng/mL (0.00-0.029) H* 05/09/17 16:39 NT-Pro-B Natriuret Pep > 25729 pg/mL (0-900) H 05/09/17 16:39 Total Protein 8.5 g/dL (6.3-8.2) H 05/09/17 16:39 Albumin 4.2 g/dL (3.9-5) 05/09/17 16:39 Albumin/Globulin Ratio 1.0 % 05/09/17 16:39 Triglycerides 67 mg/dL (2-149) 05/09/17 16:39 Cholesterol 206 mg/dL (50-199) H 05/09/17 16:39 LDL Cholesterol Direct 98 mg/dL (50-130) 05/09/17 16:39 HDL Cholesterol 95 mg/dL (40-59) H 05/09/17 16:39 Cholesterol/HDL Ratio 2.16 % 05/09/17 16:39
[2017-05-12] MEDS ORDERED: NACL 0.9 (PRIMING MACHINE ONLY DIALYSIS) MC ONE (14:32)
[2017-05-12] MEDS: SENSIPAR PO SCH (16:19)
[2017-05-12] MEDS: NORVASC PO SCH (16:20)
[2017-05-12] MEDS: ZESTRIL PO SCH (16:20)
[2017-05-12] MEDS ORDERED: APRESOLINE IV PRN (21:27)
[2017-05-12] MEDS: PROVENTIL IH PRN (23:04)
[2017-05-13] MEDS: TYLENOL PO PRN ×2 (00:08→06:50)
[2017-05-13] MEDS: BENADRYL PO PRN (00:09)
[2017-05-13] MEDS: APRESOLINE PO SCH ×2 (00:30→06:50)
[2017-05-13] MEDS: COREG PO SCH ×2 (00:30→09:02)
[2017-05-13 07:35] LABS: Calcium 9.4 mg/dL (8.4-10.2)
[2017-05-13 08:20] VITALS: BP 168/94
[2017-05-13] MEDS: RENVELA PO SCH (09:01)
[2017-05-13] MEDS: PROVENTIL IH PRN (09:28)
[2017-05-13] MEDS: NORVASC PO SCH (09:31)
[2017-05-13] MEDS: SENSIPAR PO SCH (09:37)
[2017-05-13] MEDS: PEPCID PO SCH (09:37)
[2017-05-13] MEDS: ZESTRIL PO SCH (09:38)
--- NOTE | 2017-05-13 11:00 | Discharge Summary ---
Providers - Providers Date of Admission: 05/09/17 18:27 Attending physician: YOVANNY MOHAN MD 05/09/17 17:05 Consult to Physician [CONS] Urgent Consulting Provider: RANDELL KELLY Reason For Exam: esrd Notified:: yes 05/10/17 13:39 Consult to Dietitian/Nutrition [CONS] Routine Physician Instructions: Reason For Exam: Reason for Consult: Pt needs oral supplement 05/10/17 18:43 Consult to Case Management [CONS] Routine Services Needed at Discharge: Home O2 Notified:: CM NOTIFIED Additional Physician Instructions: needs portable oxygen Primary care physician: BROODMARE BARN GROOM Hospitalization Condition: Good Hospital course: Patient is a 51 years old female with past medical history of HTN, ESRD on HD(M ,W,F), Severe Malnutrition, CHF, COPD, Nicotine Dependence, Noncompliance presents to ED for shortness of breath, 3 days. Patient had not been compliant with her dialysis. She was found to have fluid overload, she went on to have hemodialysis and had excess fluid removed. Her blood pressure medication optimized. She received counseling for tobacco cessation and for improved compliance with treatments. She verbalizes understanding. She clinically improved. After which she was subsequently discharged home. Diagnosis Acute on chronic respiratory failure with hypoxia End-stage renal disease on dialysis Hyperkalemia Hypertensive urgency Elevated troponin, due to ESRD Volume overload hypermagnesemia AOCD Noncompliance Tobacco abuse Disposition: DC-01 TO HOME OR SELFCARE Time spent for discharge: 33 minutes Core Measure Documentation - Palliative Care Palliative Care/ Comfort Measures: Not Applicable - Core Measures Any of the following diagnoses?: none Exam - Constitutional Vitals: Temp Pulse Resp BP Pulse Ox 97.8 F 96 H 18 168/94 96 05/13/17 07:56 05/13/17 09:38 05/13/17 09:38 05/13/17 07:56 05/13/17 09:28 General appearance: Present: no acute distress, well-nourished - EENT Eyes: Present: PERRL ENT: hearing intact, clear oral mucosa - Neck Neck: Present: supple, normal ROM - Respiratory Respiratory effort: normal Respiratory: bilateral: CTA - Cardiovascular Heart Sounds: Present: S1 & S2. Absent: rub, click - Extremities Extremities: pulses symmetrical, No edema Peripheral Pulses: within normal limits - Abdominal General gastrointestinal: Present: soft, non-tender, non-distended, normal bowel sounds Female genitourinary: Present: normal - Integumentary Integumentary: Present: clear, warm, dry - Musculoskeletal Musculoskeletal: gait normal, strength equal bilaterally - Psychiatric Psychiatric: appropriate mood/affect, intact judgment & insight - Neurologic Neurologic: CNII-XII intact, moves all extremities Plan Follow up with: PRIMARY CARE, [Primary Care Provider] - 3-5 Days
== END 2017-05-13 10:53 | disposition home or self-care (01) | DRG 291 ==
LOC: ED 16:26 → 3A 18:27
PROVIDERS: ADMIT Internal Medicine; ATTEND Internal Medicine
PROC: 5A1D70Z Performance of Urinary Filtration, Intermittent, Less than 6 Hours Per Day (ICD-10-PCS; principal; 2017-05-09)
PROC: 5A09357 Assistance with Respiratory Ventilation, Less than 24 Consecutive Hours, Continuous Positive Airway Pressure (ICD-10-PCS; 2017-05-09)
PROC: 5A1D70Z Performance of Urinary Filtration, Intermittent, Less than 6 Hours Per Day (ICD-10-PCS; 2017-05-10)
PROC: 5A1D70Z Performance of Urinary Filtration, Intermittent, Less than 6 Hours Per Day (ICD-10-PCS; 2017-05-12)
DX: I13.2 Hypertensive heart and chronic kidney disease with heart failure and with stage 5 chronic kidney disease, or end stage renal disease (principal); N18.6 End stage renal disease; E43 Unspecified severe protein-calorie malnutrition; J96.21 Acute and chronic respiratory failure with hypoxia; E87.2 Acidosis; I50.20 Unspecified systolic (congestive) heart failure; E87.5 Hyperkalemia; E87.70 Fluid overload, unspecified; J43.9 Emphysema, unspecified; F41.9 Anxiety disorder, unspecified; I16.0 Hypertensive urgency; E83.41 Hypermagnesemia; F17.200 Nicotine dependence, unspecified, uncomplicated; M54.9 Dorsalgia, unspecified; Z68.22 Body mass index [BMI] 22.0-22.9, adult; Z90.710 Acquired absence of both cervix and uterus; Z88.8 Allergy status to other drugs, medicaments and biological substances; Z82.49 Family history of ischemic heart disease and other diseases of the circulatory system; Z91.15 Patient's noncompliance with renal dialysis; Z71.89 Other specified counseling; Z71.6 Tobacco abuse counseling; D63.1 Anemia in chronic kidney disease
CPT/HCPCS: 36415; 71045; 80048; 80053; 80061; 83735; 83880; 84484; 85025; 85027; 85610; 85730; 93005; 93010; 94010; 94640; 94760; 99406; J0360; J0885; J1200; J1815; J3010; J7030